=== PATIENT | female | born 1935 | race African-American/Black ===

== ENCOUNTER 2016-04-15 15:56 | Inpatient (IN) | payer OTHER ==
--- NOTE | 2016-04-15 16:06 | PDOC ---
History of Present Illness <Fortunato Tyler - Last Filed: 04/15/16 18:54> - General History Source: Patient Exam Limitations: No Limitations - History of Present Illness Initial Comments: 04/15/16 16:24 The patient is a 80 year old morbidly obese female with a significant past medical history of hypercholesterolemia, pulmonary embolism, colon cancer, CHF, hypertension, IDDM, who presents to the ED s/p fall today. Patient was getting onto the bed as her right leg gave out and she fell onto her knees. She notes that she was able to get up and was fine until later in the day as her symptoms began and got progressively worse. She states that her right knee is very painful. Patient denies any head trauma, back pain. Patient denies any fever, chills, nausea, vomiting, diarrhea. Patient is ambulatory with assistance of a walker. <Yanely Craig - Last Filed: 04/15/16 19:02> - General Stated Complaint: FALL Time Seen by Provider: 04/15/16 16:05 Past History - Past Medical History Anemia: No Asthma: No Cancer: No Cardiac Disorders: No CVA: No COPD: No CHF: No Dementia: No Diabetes: Yes Disorders: No HTN: Yes Hypercholesterolemia: Yes Liver Disease: No Seizures: No Thyroid Disease: No - Surgical History Abdominal Surgery: No Appendectomy: No Cardiac Surgery: No Cholecystectomy: No Lung Surgery: No Neurologic Surgery: No Orthopedic Surgery: No - Immunization History Immunization Up to Date: Yes - Psycho/Social/Smoking Cessation Hx Anxiety: No Suicidal Ideation: No Smoking History: Never smoked Have you smoked in the past 12 months: No If you are a former smoker, when did you quit?: 1974 Hx Alcohol Use: No Drug/Substance Use Hx: No Substance Use Type: None Hx Substance Use Treatment: No <Fortunato Tyler - Last Filed: 04/15/16 18:54> <Yanely Craig - Last Filed: 04/15/16 19:02> - Past Medical History Allergies/Adverse Reactions: Allergies Allergy/AdvReac Type Severity Reaction Status Date / Time No Known Drug Allergies Allergy Verified 04/15/16 18:27 lactose AdvReac Verified 04/15/16 18:27 Home Medications: Ambulatory Orders Unobtainable [Unobtainable] 04/15/16 Review of Systems - Review of Systems Able to Perform ROS?: Yes Comments:: 04/15/16 16:24 GENERAL/CONSTITUTIONAL: No fever or chills. No weakness. HEAD, EYES, EARS, NOSE AND THROAT: No change in vision. No ear pain or discharge. No sore throat. CARDIOVASCULAR: No chest pain or shortness of breath. RESPIRATORY: No cough, wheezing, or hemoptysis. GASTROINTESTINAL: No nausea, vomiting, diarrhea or constipation. GENITOURINARY: No dysuria, frequency, or change in urination. MUSCULOSKELETAL: +bilateral knee pain. No joint or muscle swelling or pain. No neck or back pain. SKIN: No rash NEUROLOGIC: No headache, vertigo, loss of consciousness, or change in strength/ sensation. ENDOCRINE: No increased thirst. No abnormal weight change. HEMATOLOGIC/LYMPHATIC: No anemia, easy bleeding, or history of blood clots. ALLERGIC/IMMUNOLOGIC: No hives or skin allergy. <Yanely Craig - Last Filed: 04/15/16 19:02> *Physical Exam - Vital Signs Last Vital Signs Temp Pulse Resp BP Pulse Ox 97.8 F 78 18 161/86 95 04/15/16 16:17 04/15/16 16:17 04/15/16 16:17 04/15/16 16:17 04/15/16 16:17 - Physical Exam Comments: 04/15/16 16:25 GENERAL: Awake, alert, and fully oriented, in no acute distress HEAD: No signs of trauma EYES: PERRLA, EOMI, sclera anicteric, conjunctiva clear ENT: Auricles normal inspection, hearing grossly normal, nares patent, oropharynx clear without exudates. Moist mucosa NECK: Normal ROM, supple, no lymphadenopathy, JVD, or masses LUNGS: Breath sounds equal, clear to auscultation bilaterally. No wheezes, and no crackles HEART: Regular rate and rhythm, normal S1 and S2, no murmurs, rubs or gallops ABDOMEN: +Obese. Soft, nontender, normoactive bowel sounds. No guarding, no rebound. No masses EXTREMITIES: +Tenderness to kneecap bilaterally the right worse than the left. Normal range of motion. No clubbing or cyanosis. No cords, erythema. NEUROLOGICAL: Cranial nerves II through XII grossly intact. Normal speech. SKIN: Warm, Dry, normal turgor, no rashes or lesions noted. <Yanely Craig - Last Filed: 04/15/16 19:02> Medical Decision Making - Medical Decision Making 04/15/16 16:25 80 year old morbidly obese female with a significant past medical history of hypercholesterolemia, pulmonary embolism, colon cancer, CHF, hypertension, IDDM , who presents to the ED s/p fall today. She denies any LOC. Awaiting results of imagine will reassess after the results are obtained. 04/15/16 18:38 Bilateral knee XRAY's show no acute pathology. Patient was evaluated for ambulating and she cannot ambulate and is experiencing severe pain. Patient needs NH placement for PT. Will order CBC panel and urine. Hospitalist was microblogged for admission. <Yanely Craig - Last Filed: 04/15/16 19:02> *DC/Admit/Observation/Transfer - Discharge Dispostion Admit: Yes - Attestations Physician Attestion: 04/15/16 16:06 I, Dr. Fortunato Tyler, attest that this document has been prepared under my direction and personally reviewed by me in its entirety. I further attest, that it accurately reflects all work, treatment, procedures and medical decision -making performed by me. <Fortunato Tyler - Last Filed: 04/15/16 18:54> - Attestations Scribe Attestion: 04/15/16 16:26 Documentation prepared by SEYMOUR [place], acting as medical videographer for Fortunato Tyler MD/DO. <Yanely Craig - Last Filed: 04/15/16 19:02> Diagnosis at time of Disposition: Acute bilateral knee pain - Discharge Dispostion Condition at time of disposition: Unchanged/Unknown - Referrals Referrals: STAFF,NOT ON [Primary Care Provider] -
[2016-04-15] MEDS ORDERED: OXYCODONE/APAP 5/325MG COMBO TABLET PO ONE (16:10)
[2016-04-15] MEDS ORDERED: ONDANSETRON *ODT* 4 MG TABLET SL ONE (16:11)
[2016-04-15] MEDS ORDERED: ONDANSETRON *ODT* 4 MG TABLET ONE (16:21)
[2016-04-15] MEDS ORDERED: OXYCODONE/APAP 5/325MG COMBO TABLET ONE ×2 (16:21→23:04)
--- NOTE | 2016-04-15 19:26 | PN ---
<Frank Gonsales - Last Filed: 04/15/16 19:26> Teaching Attending Note Name of Resident: Husam Kruger ATTENDING PHYSICIAN STATEMENT I saw and evaluated the patient. I reviewed the resident's note and discussed the case with the resident. I agree with the resident's findings and plan as documented. SUBJECTIVE: OBJECTIVE: ASSESSMENT AND PLAN: <Kenyatta Miner - Last Filed: 04/15/16 21:20> Teaching Attending Note ATTENDING PHYSICIAN STATEMENT I saw and evaluated the patient. I reviewed the resident's note and discussed the case with the resident. I agree with the resident's findings and plan as documented. SUBJECTIVE: The patient is a 81 year old morbidly obese female with a significant past medical history of hypercholesterolemia, pulmonary embolism, colon cancer, CHF, hypertension, IDDM, who presents with mechanical fall today. Patient reports she was walking today when her right leg gave out and caused her to fall. Patient reports hitting her head but denies LOC. Patient reports she is not unable to move her right leg s/p fall secondary to pain. Patient denies any fever, chills, nausea, vomiting, diarrhea. Patient is ambulatory with assistance of a walker. Home meds: 30 mg codeine q 6 hrs as needed knee pain; Tylenol 500 mg 2 every 12 hrs OBJECTIVE: Last Vital Signs Temp Pulse Resp BP Pulse Ox 97.8 F 78 18 161/86 95 04/15/16 16:17 04/15/16 16:17 04/15/16 16:17 04/15/16 16:17 04/15/16 16:17 GENERAL: Morbidly obese F resting in bed. Awake, alert, and fully oriented, in no acute distress HEENT: Atraumatic. PERRLA, EOMI. Moist mucosa. No JVD LUNGS: No distress, speaks full sentences, decreased breath sounds at bases. HEART: Regular rate and rhythm, normal S1 and S2, no murmurs, rubs or gallops, peripheral pulses normal and equal bilaterally. ABDOMEN: Obese, nontender, normoactive bowel sounds. No guarding, no rebound. No masses EXTREMITIES: Normal range of motion, no edema. No clubbing or cyanosis. Tenderness to palpation on mid right leg NEUROLOGICAL: Cranial nerves II through XII grossly intact. Normal speech, normal gait, no focal sensorimotor deficits SKIN: Warm, Dry, normal turgor, no rashes or lesions noted. CBCD WBC 7.6 K/mm3 (4.0-10.0) 04/15/16 19:40 RBC 4.60 M/mm3 (3.60-5.2) 04/15/16 19:40 Hgb 12.7 GM/dL (10.7-15.3) 04/15/16 19:40 Hct 39.3 % (32.4-45.2) 04/15/16 19:40 MCV 85.5 fl (80-96) 04/15/16 19:40 MCHC 32.3 g/dl (32.0-36.0) 04/15/16 19:40 RDW 15.5 % (11.6-15.6) 04/15/16 19:40 Plt Count 158 K/MM3 (134-434) 04/15/16 19:40 MPV 8.9 fl (7.5-11.1) 04/15/16 19:40 CMP Sodium 144 mmol/L (136-145) 04/15/16 19:06 Potassium 3.4 mmol/L (3.5-5.1) L 04/15/16 19:06 Chloride 108 mmol/L (98-107) H 04/15/16 19:06 Carbon Dioxide 26 mmol/L (21-32) 04/15/16 19:06 Anion Gap 10 (8-16) 04/15/16 19:06 BUN 18 mg/dL (7-18) 04/15/16 19:06 Creatinine 0.8 mg/dL (0.55-1.02) 04/15/16 19:06 Creat Clearance w eGFR > 60 (>60) 04/15/16 19:06 Calcium 8.8 mg/dL (8.5-10.1) 04/15/16 19:06 Total Bilirubin 0.4 mg/dL (0.2-1.0) D 04/15/16 19:06 AST 10 U/L (15-37) L D 04/15/16 19:06 ALT 14 U/L (12-78) 04/15/16 19:06 Alkaline Phosphatase 87 U/L (45-117) 04/15/16 19:06 Total Protein 6.5 g/dl (6.4-8.2) 04/15/16 19:06 Albumin 3.5 g/dl (3.4-5.0) 04/15/16 19:06 ASSESSMENT AND PLAN: The patient is a 81 year old morbidly obese female with a significant past medical history of hypercholesterolemia, pulmonary embolism, colon cancer, CHF, hypertension, IDDM, who presents with mechanical fall. 1.) Mechanical fall -Intractable knee pain -Knee X-ray neg. Bilaterally -PT consult -Pain control -Social work consult for possible jail placement -Right leg X-Ray for pain over tibia -STAT Head CT without contrast due to patient hitting head 2.) PE -If CT head neg, continue with eliquis 3.) HLD - continue statin 4.) HTN -Continue home meds 5.) DVT ppx -On eliquis -Place in Med Surg Documentation prepared by Kenyatta Miner, acting as medical device sales consultant for Frank Gonsales D.O.
[2016-04-15 19:53] LABS: EOSINOPHIL 1.2 % (0-4.5); MCH 27.6 pg (25.7-33.7); MCHC 32.3 g/dl (32.0-36.0); MEAN CELL VOLUME 85.5 fl (80-96); MEAN PLT VOLUME 8.9 fl (7.5-11.1); NEUTROPHILS 60.8 % (42.8-82.8); PLATELET COUNT 158 K/MM3 (134-434); RDW 15.5 % (11.6-15.6); WHITE BLOOD COUNT 7.6 K/mm3 (4.0-10.0)
[2016-04-15 20:08] LABS: INR 1.32 (0.82-1.09); PROTHROMBIN TIME (PATIENT) 14.6 SEC (9.98-11.88)
--- NOTE | 2016-04-15 20:16 | HP ---
CHIEF COMPLAINT: fall HISTORY OF PRESENT ILLNESS: The patient is a 80 year old morbidly obese female with a significant past medical history of hypercholesterolemia, pulmonary embolism, colon cancer, CHF, hypertension, IDDM, who presents to ED with a complain of mechanical fall today at & am in morning. Patient states that she was going to her bed when her legs gave up because of pain in knee joint and had a fall. Patient states that she had backward fall and do hit her head, denies LOC, nausea, vomiting, blood frm nose, ear, tongue bite, urine and faecal incontinence. She states that she has pain in her knee joints from couple of months and was diagnosed with osteoarthritis. Patient denies any head trauma, back pain.Patient denies any fever, chills, nausea, vomiting, diarrhea. Denies chest pain, palpitations, sob. Patient is ambulatory with assistance of a walker. ER course was notable for: (1) cbc, cmp (2) Xray knee Recent Travel: No PAST MEDICAL HISTORY: hypercholesterolemia, pulmonary embolism, colon cancer, CHF, hypertension, IDDM, PAST SURGICAL HISTORY: coloncancer surgery Social History: Smoking: no Alcohol:no Drugs: no Family History: Allergies No Known Drug Allergies Allergy (Verified 04/15/16 18:27) lactose Adverse Reaction (Verified 04/15/16 18:27) HOME MEDICATIONS: Home Medications Medication Instructions Recorded Unobtainable [Unobtainable] 04/15/16 REVIEW OF SYSTEMS CONSTITUTIONAL: Absent: fever, chills, diaphoresis, generalized weakness, malaise, loss of appetite, weight change HEENT: Absent: rhinorrhea, nasal congestion, throat pain, throat swelling, difficulty swallowing, mouth swelling, ear pain, eye pain, visual changes CARDIOVASCULAR: Absent: chest pain, syncope, palpitations, irregular heart rate, lightheadedness , peripheral edema RESPIRATORY: Absent: cough, shortness of breath, dyspnea with exertion, orthopnea, wheezing, stridor, hemoptysis GASTROINTESTINAL: Absent: abdominal pain, abdominal distension, nausea, vomiting, diarrhea, constipation, melena, hematochezia GENITOURINARY: Absent: dysuria, frequency, urgency, hesitancy, hematuria, flank pain, genital pain MUSCULOSKELETAL: pain in right knee and right leg. SKIN: Absent: rash, itching, pallor HEMATOLOGIC/IMMUNOLOGIC: Absent: easy bleeding, easy bruising, lymphadenopathy, frequent infections ENDOCRINE: Absent: unexplained weight gain, unexplained weight loss, heat intolerance, cold intolerance NEUROLOGIC: Absent: headache, focal weakness or paresthesias, dizziness, unsteady gait, seizure, mental status changes, bladder or bowel incontinence PSYCHIATRIC: Absent: anxiety, depression, suicidal or homicidal ideation, hallucinations. PHYSICAL EXAMINATION Vital Signs - 24 hr 04/15/16 16:17 Temperature 97.8 F Pulse Rate 78 Respiratory 18 Rate Blood Pressure 161/86 O2 Sat by Pulse 95 Oximetry (%) GENERAL: Awake, alert, and fully oriented, in no acute distress. HEAD: Normal with no signs of trauma. EYES: Pupils equal, round and reactive to light, extraocular movements intact, sclera anicteric, conjunctiva clear. No lid lag. EARS, NOSE, THROAT: Ears normal, nares patent, oropharynx clear without exudates. Moist mucous membranes. NECK: Normal range of motion, supple without lymphadenopathy, JVD, or masses. LUNGS: Breath sounds equal, clear to auscultation bilaterally. No wheezes, and no crackles. No accessory muscle use. HEART: Regular rate and rhythm, normal S1 and S2 without murmur, rub or gallop. ABDOMEN: Soft, nontender, not distended, normoactive bowel sounds, no guarding, no rebound, no masses. No hepatomegaly or splenomegaly. MUSCULOSKELETAL: Normal range of motion at all joints. No bony deformities or tenderness. No CVA tenderness. UPPER EXTREMITIES: 2+ pulses, warm, well-perfused. No cyanosis. No clubbing. Cap refill <2 seconds. No peripheral edema. LOWER EXTREMITIES: 2+ pulses, warm, well-perfused. No peripheral edema. tenderness in middle of right leg and in right knee, unable to move her leg because of pain. dorsiflexion and planer flaxion 5/5 on right side. Power in left lower limb 5/5 NEUROLOGICAL: Cranial nerves II-XII intact. Normal speech. Normal gait. PSYCHIATRIC: Cooperative. Good eye contact. Appropriate mood and affect. SKIN: Warm, dry, normal turgor, no rashes or lesions noted. Laboratory Results - last 24 hr 04/15/16 04/15/16 19:06 19:40 WBC 7.6 RBC 4.60 Hgb 12.7 Hct 39.3 MCV 85.5 MCHC 32.3 RDW 15.5 Plt Count 158 MPV 8.9 Neutrophils % 60.8 D Lymphocytes % 29.4 D Monocytes % 7.6 Eosinophils % 1.2 Basophils % 1.0 INR 1.32 H ASSESSMENT/PLAN: The patient is a 80 year old morbidly obese female with a significant past medical history of hypercholesterolemia, pulmonary embolism, colon cancer, CHF, hypertension, IDDM, who presents to ED with a complain of mechanical fall today at & am in morning. Fall due to pain in right knee and leg could be secondary to osteoarthritis Knee x ray reviewed, no acute pathology follow x ray tibia and fibula Physical therapy request social security specialist request: unable to ambulate due to pain, NH placement pain control HLD continue with home med atorvastatin 10mg hs HTN continue with home med coreg 12.5 bid Lisinopril 2.5mg po daily DM diabetic diet started on sliding scale BGM q4h, achs hold oral hypoglycemic drugs H/o Pulmonary embolism continue home med eliquis Fluid : orally allowed electrlyte: hypokalemia, givekcl 40meq po repeat elect in morning nutrition: diabetic diet dvt pro : on eliquis Gi pro ; started on protonix Please confirm the list of her home meds. called [facility] to confirm her meds. Pharmacy was closed. Dispo ; admit in med surg, Visit type - Emergency Visit Emergency Visit: Yes ED Registration Date: 04/15/16 Care time: The patient presented to the Emergency Department on the above date and was hospitalized for further evaluation of their emergent condition. - New Patient This patient is new to me today: Yes Date on this admission: 04/16/16 - Critical Care Critical Care patient: No
[2016-04-15 20:19] LABS: ALBUMIN 3.5 g/dl (3.4-5.0); ALK PHOS 87 U/L (45-117); ANION GAP 10 (8-16); BILIRUBIN,TOTAL 0.4 mg/dL (0.2-1.0); CALCIUM 8.8 mg/dL (8.5-10.1); CO2 26 mmol/L (21-32); CREATININE 0.8 mg/dL (0.55-1.02); GLUCOSE,RANDOM 100 mg/dL (74-106); SGOT/AST 10 U/L (15-37); SGPT/ALT 14 U/L (12-78); TOT PROT 6.5 g/dl (6.4-8.2)
[2016-04-15] MEDS ORDERED: POTASSIUM CHLORIDE TABS 20 MEQ TABLET.ER (FP) PO ONE ×2 (20:42→23:04)
[2016-04-15] MEDS ORDERED: OXYCODONE/APAP 5/325MG COMBO TABLET PO PRN (20:46)
[2016-04-15] MEDS: oxyCODONE HCL 5 MG TABLET PO PRN (22:59)
[2016-04-15] MEDS: ATORVASTATIN CA 10 MG TABLET (FP) PO SCH (22:59)
[2016-04-15] MEDS: CARVEDILOL 12.5 MG TABLET (FP) PO SCH (22:59)
[2016-04-15] MEDS ORDERED: CARVEDILOL 12.5 MG TABLET (FP) ONE (23:04)
[2016-04-15] MEDS ORDERED: ATORVASTATIN CA 40 MG TABLET (FP) ONE (23:05)
[2016-04-16 03:03] VITALS: BMI 43.9
[2016-04-16 08:13] LABS: BASOPHIL 0.7 % (0-2.0); EOSINOPHIL 1.6 % (0-4.5); MCHC 31.7 g/dl (32.0-36.0); MEAN CELL VOLUME 88.3 fl (80-96); MEAN PLT VOLUME 9.3 fl (7.5-11.1); PLATELET COUNT 146 K/MM3 (134-434); RDW 15.8 % (11.6-15.6); WHITE BLOOD COUNT 6.6 K/mm3 (4.0-10.0)
[2016-04-16] MEDS ORDERED: PT OWN MED DRAWER 7, Y5N ONE (08:35)
[2016-04-16] MEDS: ACETAMINOPHEN 325 MG TABLET (FP) PO PRN ×2 (08:48→22:35)
[2016-04-16] MEDS: oxyCODONE HCL 5 MG TABLET PO PRN ×2 (08:49→22:34)
[2016-04-16 08:59] LABS: MAGNESIUM 1.8 mg/dL (1.8-2.4)
[2016-04-16 09:02] LABS: PHOSPHOROUS 3.6 mg/dL (2.5-4.9)
[2016-04-16] MEDS: APIXABAN 5 MG TABLET PO SCH ×2 (09:03→22:33)
[2016-04-16] MEDS: CARVEDILOL 12.5 MG TABLET (FP) PO SCH ×2 (09:03→22:33)
[2016-04-16] MEDS: PANTOPRAZOLE 40 MG TABLET (FP) PO SCH (09:03)
[2016-04-16 09:13] LABS: URINE APPEARANCE CLOUDY; URINE BILIRUBIN NEGATIVE (NEGATIVE); URINE BLOOD NEGATIVE (NEGATIVE); URINE COLOR YELLOW; URINE GLUCOSE (UA) NEGATIVE (NEGATIVE); URINE KETONE NEGATIVE (NEGATIVE); URINE NITRITE NEGATIVE (NEGATIVE); URINE UROBILINOGEN NEGATIVE E.U./dl (0.2-1.0)
[2016-04-16 09:14] LABS: URINE LEUK ESTERASE 3+ (NEGATIVE); URINE PROTEIN 1+ (NEGATIVE)
[2016-04-16] MEDS: INSULIN SLIDING SCALE (NOVOLOG) 1 VIAL SQ SCH ×2 (17:09→22:39)
--- NOTE | 2016-04-16 17:53 | PN ---
Physical Exam: SUBJECTIVE: Patient seen and examined Patient is c/o having b/l knee pain. Unable to stand on her feet due to pain, also stated that he heard this popping noise of her knee OBJECTIVE: Vital Signs Temperature 98.4 F 04/16/16 14:55 Pulse Rate 69 04/16/16 14:55 Respiratory Rate 20 04/16/16 14:55 Blood Pressure 136/62 04/16/16 14:55 O2 Sat by Pulse Oximetry (%) 93 L 04/16/16 09:00 GENERAL: The patient is awake, alert, and fully oriented, in no acute distress. HEAD: Normal with no signs of trauma. EYES: PERRL, extraocular movements intact, sclera anicteric, conjunctiva clear. No ptosis. ENT: Ears normal, nares patent, oropharynx clear without exudates, moist mucous membranes. NECK: Trachea midline, full range of motion, supple. LUNGS: Breath sounds equal, clear to auscultation bilaterally, no wheezes, no crackles, no accessory muscle use. HEART: Regular rate and rhythm, S1, S2 without murmur, rub or gallop. ABDOMEN: Soft, nontender, nondistended, normoactive bowel sounds, no guarding, no rebound, no hepatosplenomegaly, no masses. EXTREMITIES: 2+ pulses, warm, well-perfused, no edema. Unable to bend her knees right >left NEUROLOGICAL: Cranial nerves II through XII grossly intact. Normal speech, gait not observed , unable to ambulate PSYCH: Normal mood, normal affect. SKIN: Warm, dry, normal turgor, no rashes or lesions noted Laboratory Results - last 24 hr 04/15/16 04/15/16 04/15/16 19:06 19:06 19:40 WBC 7.6 RBC 4.60 Hgb 12.7 Hct 39.3 MCV 85.5 MCHC 32.3 RDW 15.5 Plt Count 158 MPV 8.9 Neutrophils % 60.8 D Lymphocytes % 29.4 D Monocytes % 7.6 Eosinophils % 1.2 Basophils % 1.0 INR 1.32 H PTT (Actin FS) Sodium 144 Potassium 3.4 L Chloride 108 H Carbon Dioxide 26 Anion Gap 10 BUN 18 Creatinine 0.8 Creat Clearance w eGFR > 60 POC Glucometer Random Glucose 100 Calcium 8.8 Phosphorus Magnesium Total Bilirubin 0.4 D AST 10 L D ALT 14 Alkaline Phosphatase 87 Total Protein 6.5 Albumin 3.5 Urine Color Urine Appearance Urine pH Ur Specific [place] Urine Protein Urine Glucose (UA) Urine Ketones Urine Blood Urine Nitrite Urine Bilirubin Urine Urobilinogen Ur Leukocyte Esterase 04/16/16 04/16/16 04/16/16 06:40 07:00 07:00 WBC 6.6 RBC 4.44 Hgb 12.4 Hct 39.2 MCV 88.3 MCHC 31.7 L RDW 15.8 H Plt Count 146 MPV 9.3 Neutrophils % 58.0 Lymphocytes % 31.4 Monocytes % 8.3 Eosinophils % 1.6 Basophils % 0.7 INR PTT (Actin FS) Sodium Potassium Chloride Carbon Dioxide Anion Gap BUN Creatinine Creat Clearance w eGFR POC Glucometer 100 Random Glucose Calcium Phosphorus Magnesium Total Bilirubin AST ALT Alkaline Phosphatase Total Protein Albumin Urine Color Yellow Urine Appearance Cloudy Urine pH 5.0 Ur Specific [place] 1.027 Urine Protein 1+ H Urine Glucose (UA) Negative Urine Ketones Negative Urine Blood Negative Urine Nitrite Negative Urine Bilirubin Negative Urine Urobilinogen Negative Ur Leukocyte Esterase 3+ H 04/16/16 04/16/16 04/16/16 07:00 07:00 12:23 WBC RBC Hgb Hct MCV MCHC RDW Plt Count MPV Neutrophils % Lymphocytes % Monocytes % Eosinophils % Basophils % INR PTT (Actin FS) 33.6 D Sodium Potassium Chloride Carbon Dioxide Anion Gap BUN Creatinine Creat Clearance w eGFR POC Glucometer 114 Random Glucose Calcium Phosphorus 3.6 Magnesium 1.8 Total Bilirubin AST ALT Alkaline Phosphatase Total Protein Albumin Urine Color Urine Appearance Urine pH Ur Specific [place] Urine Protein Urine Glucose (UA) Urine Ketones Urine Blood Urine Nitrite Urine Bilirubin Urine Urobilinogen Ur Leukocyte Esterase 04/16/16 17:08 WBC RBC Hgb Hct MCV MCHC RDW Plt Count MPV Neutrophils % Lymphocytes % Monocytes % Eosinophils % Basophils % INR PTT (Actin FS) Sodium Potassium Chloride Carbon Dioxide Anion Gap BUN Creatinine Creat Clearance w eGFR POC Glucometer 128 Random Glucose Calcium Phosphorus Magnesium Total Bilirubin AST ALT Alkaline Phosphatase Total Protein Albumin Urine Color Urine Appearance Urine pH Ur Specific [place] Urine Protein Urine Glucose (UA) Urine Ketones Urine Blood Urine Nitrite Urine Bilirubin Urine Urobilinogen Ur Leukocyte Esterase Active Medications Generic Name Dose Route Start Last Admin Trade Name Freq PRN Reason Stop Dose Admin Acetaminophen 325 mg 04/15/16 22:22 02/20/17 08:48 Tylenol - PO 325 mg Q6H PRN Administration PAIN Apixaban 5 mg 04/16/16 10:00 04/16/16 09:03 Eliquis - PO 5 mg BID CHRISTINA Administration Atorvastatin Calcium 10 mg 04/15/16 22:00 04/15/16 22:59 Lipitor - PO 10 mg HS CHRISTINA Administration Carvedilol 12.5 mg 04/15/16 22:00 04/16/16 09:03 Coreg - PO 12.5 mg BID CHRISTINA Administration Insulin Aspart 1 vial 04/16/16 16:30 04/16/16 17:09 Novolog Vial Sliding Scale - SQ Not Given ACHS CHRISTINA Protocol Oxycodone HCl 5 mg 04/15/16 22:22 04/16/16 08:49 Roxicodone - PO 5 mg Q6H PRN Administration PAIN Pantoprazole Sodium 40 mg 04/16/16 10:00 04/16/16 09:03 Protonix - PO 40 mg DAILY CHRISTINA Administration CT of head Negative Knee X-ray neg ASSESSMENT/PLAN: The patient is a 81 year old morbidly obese female with a significant past medical history of hypercholesterolemia, pulmonary embolism, colon cancer, CHF, hypertension, IDDM, who presents with mechanical fall. # Mechanical fall; Intractable BL knee pain R>L ; Ortho consult to evaluate further. Social work consult for possible halfway placement # Pulmonary Embolism on Eliquis continue # HLD continue statin # HTN Continue home meds DVT ppx On eliquis Rehab placement as per family request Visit type - Emergency Visit Emergency Visit: Yes ED Registration Date: 04/15/16 Care time: The patient presented to the Emergency Department on the above date and was hospitalized for further evaluation of their emergent condition. - New Patient This patient is new to me today: Yes Date on this admission: 04/16/16 - Critical Care Critical Care patient: No
[2016-04-16] MEDS: ATORVASTATIN CA 10 MG TABLET (FP) PO SCH (22:33)
[2016-04-17] MEDS: sitaGLIPtin PHOSPHATE 50 MG TABLET PO SCH (06:31)
[2016-04-17] MEDS: INSULIN SLIDING SCALE (NOVOLOG) 1 VIAL SQ SCH ×3 (06:33→21:59)
[2016-04-17] MEDS: oxyCODONE HCL 5 MG TABLET PO PRN ×2 (07:07→16:09)
[2016-04-17] MEDS: ACETAMINOPHEN 325 MG TABLET (FP) PO PRN ×2 (07:08→16:09)
[2016-04-17 09:46] LABS: MCHC 32.2 g/dl (32.0-36.0); MEAN CELL VOLUME 86.9 fl (80-96); MEAN PLT VOLUME 8.9 fl (7.5-11.1); PLATELET COUNT 149 K/MM3 (134-434); RDW 15.6 % (11.6-15.6); WHITE BLOOD COUNT 6.3 K/mm3 (4.0-10.0)
[2016-04-17] MEDS ORDERED: PT OWN MED DRAWER 7, Y5N ONE ×2 (09:49→21:12)
[2016-04-17] MEDS: PANTOPRAZOLE 40 MG TABLET (FP) PO SCH (09:55)
[2016-04-17] MEDS: APIXABAN 5 MG TABLET PO SCH ×2 (09:55→22:00)
[2016-04-17] MEDS: CARVEDILOL 12.5 MG TABLET (FP) PO SCH ×2 (09:55→21:59)
[2016-04-17 10:09] LABS: CALCIUM 8.8 mg/dL (8.5-10.1); CREATININE 0.8 mg/dL (0.55-1.02)
--- NOTE | 2016-04-17 11:40 | CON.ORTH ---
Consult Reason for Consultation:: bilateral knee pain r>l - Past Medical History Cardio/Vascular: Yes: HTN, Hyperlipdemia Pulmonary: Yes: Pulmonary Embolus, Other (former smoker, morbid obesity, probable ALEJANDRA) ...: No Endocrine: Yes: Diabetes Mellitus - Past Surgical History Past Surgical History: Yes: - Alcohol/Substance Use Hx Alcohol Use: No - Smoking History Smoking history: Never smoked Have you smoked in the past 12 months: No If you are a former smoker, when did you quit?: 1974 - Social History Usual Living Arrangement: Assisted Living History of Recent Travel: No Home Medications - Allergies Allergies/Adverse Reactions: Allergies Allergy/AdvReac Type Severity Reaction Status Date / Time No Known Drug Allergies Allergy Verified 04/15/16 18:27 lactose AdvReac Verified 04/15/16 18:27 - Home Medications Home Medications: Ambulatory Orders Unobtainable [Unobtainable] 04/15/16 Family Disease History - Family Disease History Family Disease History: CA: Sister (unknown type) Physical Exam for Ortho Vital Signs: Vital Signs Temperature 97.9 F 04/17/16 10:00 Pulse Rate 71 04/17/16 10:00 Respiratory Rate 20 04/17/16 10:00 Blood Pressure 142/71 04/17/16 10:00 O2 Sat by Pulse Oximetry (%) 99 04/16/16 21:00 Labs: CBC, BMP 04/17/16 09:30 04/17/16 09:30 INR, PTT INR 1.32 (0.82-1.09) H 04/15/16 19:06 - Lower Extremity Knee: Yes: Left, Right, Limited ROM, Pain, Swelling, Tenderness, Other (nvi) Imaging - Results X-ray: Report Reviewed, Image Reviewed Assessment/Plan 80 year old morbidly obese female with a significant past medical history of hypercholesterolemia, pulmonary embolism, colon cancer, CHF, hypertension, IDDM , who presents to the ED s/p fall today. Patient was getting onto the bed as her right leg gave out and she fell onto her knees. She notes that she was able to get up and was fine until later in the day as her symptoms began and got progressively worse. She states that her right knee is very painful and she is unable to ambulate. a/p bilateral knee djd- r/o occult pathology will order CT scan of right knee will direct once CT has been performed d/w Dr. Epperson
[2016-04-17] MEDS ORDERED: DOCUSATE SODIUM 100 MG CAPSULE (FP) PO PRN (13:07)
[2016-04-17] MEDS: POLYETHYLENE GLYCOL 3350 119 GM BTL PO SCH (16:11)
--- NOTE | 2016-04-17 16:41 | PN ---
Physical Exam: SUBJECTIVE: Patient seen and examined. She is complaining of right knee pain, difficulty ambulating and constipation. She denies weakness, dizziness, chest pain. OBJECTIVE: Vital Signs Period Temp Pulse Resp BP Sys/Dean Pulse Ox Last 24 Hr 97.7 F-98.9 F 65-75 20-20 142-188/63-76 93-99 GENERAL: The patient is awake, alert, and fully oriented, in no acute distress. HEAD: Normal with no signs of trauma. EYES: extraocular movements intact, conjunctiva clear. ENT: oropharynx clear without exudates, moist mucous membranes. NECK: full range of motion, supple. LUNGS: Breath sounds equal, clear to auscultation bilaterally, no wheezes, no crackles, no accessory muscle use. HEART: Regular rate and rhythm, S1, S2 without murmur, rub or gallop. ABDOMEN: Obese, soft, nontender, nondistended, normoactive bowel sounds, no guarding, no rebound, no masses. EXTREMITIES: warm, no edema, limited ROM in right knee. NEUROLOGICAL: Normal speech, no facial asymmetry, no tongue deviation, motor; 5/ 5 in all 4 extremities, sensation intact, gait not observed, DTRs nl in LEs. PSYCH: Normal mood, normal affect. SKIN: Warm, dry, normal turgor, no rashes or lesions noted Laboratory Results - last 24 hr 04/16/16 04/16/16 04/17/16 17:08 22:38 06:29 WBC RBC Hgb Hct MCV MCHC RDW Plt Count MPV Sodium Potassium Chloride Carbon Dioxide Anion Gap BUN Creatinine POC Glucometer 128 89 85 Random Glucose Calcium 04/17/16 04/17/16 04/17/16 09:30 09:30 12:27 WBC 6.3 RBC 4.50 Hgb 12.6 Hct 39.1 MCV 86.9 MCHC 32.2 RDW 15.6 Plt Count 149 MPV 8.9 Sodium 145 Potassium 3.9 Chloride 109 H Carbon Dioxide 30 Anion Gap 6 L BUN 24 H D Creatinine 0.8 POC Glucometer 90 Random Glucose 92 Calcium 8.8 Active Medications Generic Name Dose Route Start Last Admin Trade Name Freq PRN Reason Stop Dose Admin Acetaminophen 325 mg 04/15/16 22:22 04/17/16 16:09 Tylenol - PO 325 mg Q6H PRN Administration PAIN Apixaban 5 mg 04/16/16 10:00 04/17/16 09:55 Eliquis - PO 5 mg BID CHRISTINA Administration Atorvastatin Calcium 10 mg 04/15/16 22:00 04/16/16 22:33 Lipitor - PO 10 mg HS CHRISTINA Administration Carvedilol 12.5 mg 04/15/16 22:00 04/17/16 09:55 Coreg - PO 12.5 mg BID CHRISTINA Administration Docusate Sodium 100 mg 04/17/16 13:07 Colace - PO Q8H PRN CONSTIPATION Insulin Aspart 1 vial 04/16/16 16:30 04/17/16 12:30 Novolog Vial Sliding Scale - SQ Not Given ACHS CHRISTINA Protocol Oxycodone HCl 5 mg 04/15/16 22:22 04/17/16 16:09 Roxicodone - PO 5 mg Q6H PRN Administration PAIN Pantoprazole Sodium 40 mg 04/16/16 10:00 04/17/16 09:55 Protonix - PO 40 mg DAILY CHRISTINA Administration Polyethylene Glycol 17 gm 04/17/16 13:15 04/17/16 16:11 Miralax (For Daily Use) - PO 17 gm DAILY CHRISTINA Administration Sitagliptin Phosphate 50 mg 04/17/16 07:00 04/17/16 06:31 Januvia - PO 50 mg DAILY@0700 CHRISTINA Administration ASSESSMENT/PLAN: The patient is a 80 year old morbidly obese female with a significant past medical history of hypercholesterolemia, pulmonary embolism, colon cancer, CHF, hypertension, IDDM, who presents to ED with a complain of mechanical fall today at & am in morning. Fall due to pain in right knee and leg -could be secondary to osteoarthritis, will consult ortho and f/u CT -Knee x ray reviewed, no acute pathology -x ray tibia and fibula -Physical therapy -pain control Constipation; -Mitralax PO qd -Colace PO TID HLD -continue with home med atorvastatin 10mg hs HTN -continue with home med Coreg 12.5 bid -Lisinopril 2.5mg po daily DM -diabetic diet -Januvia and ISS -BGM q4h, achs -hold oral hypoglycemic drugs hypokalemia -given Kcl 40meq PO H/o Pulmonary embolism -continue home med eliquis F/E/N: No/No/diabetic diet dvt PPX : on eliquis GI PPX ; started on protonix Disposition: admit in med surg, Problem List - Problems (1) Acute bilateral knee pain Code(s): M25.561 - PAIN IN RIGHT KNEE M25.562 - PAIN IN LEFT KNEE (2) Frequent falls Code(s): R29.6 - REPEATED FALLS (3) Morbid obesity Code(s): E66.01 - MORBID (SEVERE) OBESITY DUE TO EXCESS CALORIES Qualifiers: Obesity type: unspecified obesity type Qualified Code(s): E66.01 - Morbid (severe) obesity due to excess calories (4) Diabetes Code(s): E11.9 - TYPE 2 DIABETES MELLITUS WITHOUT COMPLICATIONS (5) Hypertension Code(s): I10 - ESSENTIAL (PRIMARY) HYPERTENSION Visit type - Emergency Visit Emergency Visit: Yes ED Registration Date: 04/15/16 Care time: The patient presented to the Emergency Department on the above date and was hospitalized for further evaluation of their emergent condition. - New Patient This patient is new to me today: Yes Date on this admission: 04/18/16 - Critical Care Critical Care patient: No - Discharge Referral Referred to [facility] Med P.C.: No
--- NOTE | 2016-04-17 20:39 | PN ---
Teaching Attending Note Name of Resident: Skye Currie ATTENDING PHYSICIAN STATEMENT I saw and evaluated the patient. I reviewed the resident's note and discussed the case with the resident. I agree with the resident's findings and plan as documented. SUBJECTIVE: Patient continues to have pain right > left OBJECTIVE: Vital Signs Temperature 98.2 F 04/17/16 18:10 Pulse Rate 73 04/17/16 18:10 Respiratory Rate 20 04/17/16 18:10 Blood Pressure 165/85 04/17/16 18:10 O2 Sat by Pulse Oximetry (%) 93 L 04/17/16 09:00 GENERAL: The patient is awake, alert, and fully oriented, in no acute distress. HEAD: Normal with no signs of trauma. EYES: PERRL, extraocular movements intact, sclera anicteric, conjunctiva clear. No ptosis. ENT: Ears normal, nares patent, oropharynx clear without exudates, moist mucous membranes. NECK: Trachea midline, full range of motion, supple. LUNGS: Breath sounds equal, clear to auscultation bilaterally, no wheezes, no crackles, no accessory muscle use. HEART: Regular rate and rhythm, S1, S2 positive, REGAN 2/6 ,no rub or gallop. ABDOMEN: Soft, nontender, nondistended, normoactive bowel sounds, no guarding, no rebound, no hepatosplenomegaly, no masses appreciated. EXTREMITIES: 2+ pulses, warm, well-perfused, no edema. Unable to bend her knees right >left NEUROLOGICAL: Cranial nerves II through XII grossly intact. Normal speech, gait not observed , unable to ambulate PSYCH: Normal mood, normal affect. SKIN: Warm, dry, normal turgor, no rashes or lesions noted CBCD WBC 6.3 K/mm3 (4.0-10.0) 04/17/16 09:30 RBC 4.50 M/mm3 (3.60-5.2) 04/17/16 09:30 Hgb 12.6 GM/dL (10.7-15.3) 04/17/16 09:30 Hct 39.1 % (32.4-45.2) 04/17/16 09:30 MCV 86.9 fl (80-96) 04/17/16 09:30 MCHC 32.2 g/dl (32.0-36.0) 04/17/16 09:30 RDW 15.6 % (11.6-15.6) 04/17/16 09:30 Plt Count 149 K/MM3 (134-434) 04/17/16 09:30 MPV 8.9 fl (7.5-11.1) 04/17/16 09:30 CMP Sodium 145 mmol/L (136-145) 04/17/16 09:30 Potassium 3.9 mmol/L (3.5-5.1) 04/17/16 09:30 Chloride 109 mmol/L (98-107) H 04/17/16 09:30 Carbon Dioxide 30 mmol/L (21-32) 04/17/16 09:30 Anion Gap 6 (8-16) L 04/17/16 09:30 BUN 24 mg/dL (7-18) H D 04/17/16 09:30 Creatinine 0.8 mg/dL (0.55-1.02) 04/17/16 09:30 Creat Clearance w eGFR > 60 (>60) 04/15/16 19:06 Random Glucose 92 mg/dL (74-106) 04/17/16 09:30 Calcium 8.8 mg/dL (8.5-10.1) 04/17/16 09:30 Total Bilirubin 0.4 mg/dL (0.2-1.0) D 04/15/16 19:06 AST 10 U/L (15-37) L D 04/15/16 19:06 ALT 14 U/L (12-78) 04/15/16 19:06 Alkaline Phosphatase 87 U/L (45-117) 04/15/16 19:06 Total Protein 6.5 g/dl (6.4-8.2) 04/15/16 19:06 Albumin 3.5 g/dl (3.4-5.0) 04/15/16 19:06 Current Medications Generic Name Dose Route Start Last Admin Trade Name Freq PRN Reason Stop Dose Admin Acetaminophen 325 mg 04/15/16 22:22 04/17/16 16:09 Tylenol - PO 325 mg Q6H PRN Administration PAIN Apixaban 5 mg 04/16/16 10:00 04/17/16 09:55 Eliquis - PO 5 mg BID CHRISTINA Administration Atorvastatin Calcium 10 mg 04/15/16 22:00 04/16/16 22:33 Lipitor - PO 10 mg HS CHRISTINA Administration Carvedilol 12.5 mg 04/15/16 22:00 04/17/16 09:55 Coreg - PO 12.5 mg BID CHRISTINA Administration Docusate Sodium 100 mg 04/17/16 13:07 Colace - PO Q8H PRN CONSTIPATION Insulin Aspart 1 vial 04/16/16 16:30 04/17/16 12:30 Novolog Vial Sliding Scale - SQ Not Given ACHS [facility] Protocol Oxycodone HCl 5 mg 04/15/16 22:22 04/17/16 16:09 Roxicodone - PO 5 mg Q6H PRN Administration PAIN Pantoprazole Sodium 40 mg 04/16/16 10:00 04/17/16 09:55 Protonix - PO 40 mg DAILY CHRISTINA Administration Polyethylene Glycol 17 gm 04/17/16 13:15 04/17/16 16:11 Miralax (For Daily Use) - PO 17 gm DAILY CHRISTINA Administration Sitagliptin Phosphate 50 mg 04/17/16 07:00 04/17/16 06:31 Januvia - PO 50 mg DAILY@0700 CHRISTINA Administration Home Medications Medication Instructions Recorded Unobtainable [Unobtainable] 04/15/16 CT of head Negative Knee X-ray neg ASSESSMENT AND PLAN: The patient is a 81 year old morbidly obese female with a significant past medical history of hypercholesterolemia, pulmonary embolism, colon cancer, CHF, hypertension, IDDM, who presents with mechanical fall. # Mechanical fall; Intractable BL knee pain R>L , Unable to ambulate , Ortho consult appreciated , CT of right knee ordered, result is pending . Social work consult for possible assisted placement # Pulmonary Embolism on Eliquis continue # HLD continue statin # HTN Continue home meds DVT ppx On eliquis Rehab placement as per family request
[2016-04-17] MEDS: ATORVASTATIN CA 10 MG TABLET (FP) PO SCH (22:00)
[2016-04-18] MEDS: sitaGLIPtin PHOSPHATE 50 MG TABLET PO SCH (06:09)
[2016-04-18] MEDS: INSULIN SLIDING SCALE (NOVOLOG) 1 VIAL SQ SCH ×3 (06:11→16:38)
--- NOTE | 2016-04-18 09:19 | PN ---
Progress Note (short form) - Note Progress Note: Ortho Pt seen and examined improving but still c/o pain in bilateral knees R>L, was able to ambulate to the commode decr pain, decr swelling, Incr ROM, nvi CT scan neg for fx- + djd, loose bodies a/p PT eval WBAT dvt ppx pain control d/c planning d/w Dr. Epperson
[2016-04-18] MEDS: APIXABAN 5 MG TABLET PO SCH (09:40)
[2016-04-18] MEDS: CARVEDILOL 12.5 MG TABLET (FP) PO SCH (09:40)
[2016-04-18] MEDS: POLYETHYLENE GLYCOL 3350 119 GM BTL PO SCH (09:40)
[2016-04-18] MEDS: PANTOPRAZOLE 40 MG TABLET (FP) PO SCH (09:40)
[2016-04-18] MEDS ORDERED: oxyCODONE HCL 5 MG TABLET PO PRN (11:41)
[2016-04-18] MEDS ORDERED: SENNOSIDES 8.6MG TABLET (FP) PO PRN (11:42)
[2016-04-18] MEDS ORDERED: INSULIN (NOVOLOG) ASPART 100 UNITS/ML 10ML VIAL ONE ×2 (11:54→19:07)
[2016-04-18] MEDS: ACETAMINOPHEN 325 MG TABLET (FP) PO PRN (11:58)
[2016-04-18 15:00] VITALS: BP 140/75; PULSE 68; TEMP 97.6
--- NOTE | 2016-04-18 15:17 | PN ---
Teaching Attending Note Name of Resident: Skye Currie ATTENDING PHYSICIAN STATEMENT I saw and evaluated the patient. I reviewed the resident's note and discussed the case with the resident. I agree with the resident's findings and plan as documented. SUBJECTIVE:complaints of b/l knee pain 8/10 and inability to get out of bed due to pain OBJECTIVE: Vital Signs - 24 hr 04/17/16 04/17/16 04/17/16 15:39 18:10 21:00 Temperature 98.3 F 98.2 F Pulse Rate 69 73 Respiratory 20 20 Rate Blood Pressure 156/73 165/85 O2 Sat by Pulse 90 L Oximetry (%) 04/18/16 04/18/16 04/18/16 00:00 06:00 09:00 Temperature 98.5 F 98.6 F Pulse Rate 72 76 Respiratory 18 18 Rate Blood Pressure 123/63 161/76 O2 Sat by Pulse 97 Oximetry (%) 04/18/16 04/18/16 10:00 14:58 Temperature 98.3 F 97.6 F Pulse Rate 76 68 Respiratory 20 22 Rate Blood Pressure 151/97 140/75 O2 Sat by Pulse Oximetry (%) GENERAL: The patient is awake, alert, and fully oriented, in no acute distress. HEAD: Normal with no signs of trauma. EYES: PERRL, extraocular movements intact, sclera anicteric, conjunctiva clear. No ptosis. ENT: Ears normal, nares patent, oropharynx clear without exudates, moist mucous membranes. NECK: Trachea midline, full range of motion, supple. LUNGS: Breath sounds equal, clear to auscultation bilaterally, no wheezes, no crackles, no accessory muscle use. HEART: Regular rate and rhythm, S1, S2 positive, REGAN 2/6 ,no rub or gallop. ABDOMEN: Soft, nontender, nondistended, normoactive bowel sounds, no guarding, no rebound, no hepatosplenomegaly, no masses appreciated. EXTREMITIES: 2+ pulses, warm, well-perfused, no edema. Unable to bend her knees right >left NEUROLOGICAL: Cranial nerves II through XII grossly intact. Normal speech, gait not observed , unable to ambulate PSYCH: Normal mood, normal affect. SKIN: Warm, dry, normal turgor, no rashes or lesions noted CBC, BMP 04/17/16 09:04/17/16 09:30 CT R knee - + loose body ASSESSMENT AND PLAN: The patient is a 81 year old morbidly obese female with a significant past medical history of hypercholesterolemia, pulmonary embolism, colon cancer, CHF, hypertension, IDDM, who presents with mechanical fall. # Mechanical fall; Intractable BL knee pain R>L , no acute fracture. No intervention indicated . Nedds appropriate pain control and d/c planning. -will increase Percocet -provide pain control prior to PT # Pulmonary Embolism/ History on Eliquis # HLD continue statin # HTN Continue home meds DVT ppx On eliquis Discharge to rehab when bed is arranged
[2016-04-18] MEDS ORDERED: CARVEDILOL 12.5 MG TABLET (FP) PO ONE (16:53)
--- NOTE | 2016-04-18 17:42 | DS ---
Physical Exam: SUBJECTIVE: Patient seen and examined. She is still complaining of knee pain, worse on right side, 8/10, constant. Denies weakness, numbness, chest pain, headache. OBJECTIVE: Vital Signs Period Temp Pulse Resp BP Sys/Dean Pulse Ox Last 24 Hr 97.6 F-98.6 F 68-76 18-22 123-165/63-97 90-97 PHYSICAL EXAM GENERAL: The patient is awake, alert, and fully oriented, in no acute distress. HEAD: Normal with no signs of trauma. EYES: extraocular movements intact, conjunctiva clear. ENT: oropharynx clear without exudates, moist mucous membranes. NECK: full range of motion, supple. LUNGS: Breath sounds equal, clear to auscultation bilaterally, no wheezes, no crackles, no accessory muscle use. HEART: Regular rate and rhythm, S1, S2 without murmur, rub or gallop. ABDOMEN: Obese, soft, nontender, nondistended, normoactive bowel sounds, no guarding, no rebound, no masses. EXTREMITIES: warm, no edema, limited ROM in right knee. NEUROLOGICAL: Normal speech, no facial asymmetry, no tongue deviation, motor; 5/ 5 in all 4 extremities, sensation intact, gait not observed, DTRs nl in LEs. PSYCH: Normal mood, normal affect. SKIN: Warm, dry, normal turgor, no rashes or lesions noted LABS Laboratory Results - last 24 hr 04/17/16 04/17/16 04/18/16 18:36 21:58 06:09 POC Glucometer 81 147 92 04/18/16 04/18/16 12:01 16:37 POC Glucometer 136 122 HOSPITAL COURSE: Date of Admission:04/15/16 Date of Discharge: 04/18/16 Minutes to complete discharge: 50 Discharge Summary Reason For Visit: ACUTE BILATERAL KNEE PAIN Current Active Problems Acute bilateral knee pain (Acute) Frequent falls (Acute) Hospital Course: The patient is a 81 year old morbidly obese female with a significant past medical history of hypercholesterolemia, pulmonary embolism, colon cancer, CHF, hypertension, IDDM, who presents with mechanical fall today. Patient reports she was walking today when her right leg gave out and caused her to fall. Patient reports hitting her head but denies LOC. Patient reports she is not unable to move her right leg s/p fall secondary to pain. Patient denies any fever, chills, nausea, vomiting, diarrhea.Patient is ambulatory with assistance of a walker. Hospital course: Fall due to pain in right knee and leg: could be secondary to osteoarthritis, will consult ortho and f/u CT, knee, fibula and x ray reviewed, no acute pathology.Physical therapy evaluated the pt. She was not able to walk without assistance. Pain control; Oxycodone and Tylenol. Constipation; Mitralax PO qd and Colace PO TID. HLD we continued with home med atorvastatin.HTN-continue with home meds. DM-diabetic diet, Januvia and ISS, hypokalemia, given Kcl 40meq PO, H/o Pulmonary embolism we continued home med eliquis. She was discharged to rehabilitation center. Condition: Improved - Instructions Diet, Activity, Other Instructions: Please take your medications everyday and see your primary care physician in 2 weeks. If you have pain take Oxycodone and Tylenol. If you have severe pain, swelling of the joint, fever, dizziness, chest pain, shortness of breath, bleeding come to Emergency Room as soon as possible. Referrals: Ginette Burris MD [Other] - 2 Weeks STAFF,NOT ON [Primary Care Provider] - Disposition: [facility] - Home Medications Comprehensive Discharge Medication List: Ambulatory Orders Acetaminophen [Tylenol Extra Strength] 500 mg PO Q6H PRN 04/18/16 Apixaban [Eliquis] 5 mg PO DAILY 04/18/16 Atorvastatin Ca [Lipitor] 10 mg PO HS 04/18/16 Docusate Sodium [Colace -] 100 mg PO BID 04/18/16 Furosemide [Lasix -] 20 mg PO DAILY 04/18/16 Lisinopril [Zestril] 2.5 mg PO 04/18/16 Omeprazole 20 mg PO DAILY 04/18/16 Oxycodone HCl [Roxicodone -] 10 mg PO Q6H PRN #0 tablet MDD 40 04/18/16 Polyethylene Glycol 3350 [Miralax 119 gm Btl -] 17 gm PO DAILY bottle 04/18/16 Sennosides [Senna -] 2 tab PO HS PRN #0 tablet 04/18/16 Sitagliptin Phosphate [Januvia] DAILY 04/18/16 Problem List - Problems (1) Acute bilateral knee pain Code(s): M25.561 - PAIN IN RIGHT KNEE M25.562 - PAIN IN LEFT KNEE (2) Frequent falls Code(s): R29.6 - REPEATED FALLS (3) Morbid obesity Code(s): E66.01 - MORBID (SEVERE) OBESITY DUE TO EXCESS CALORIES Qualifiers: Obesity type: unspecified obesity type Qualified Code(s): E66.01 - Morbid (severe) obesity due to excess calories (4) Diabetes Code(s): E11.9 - TYPE 2 DIABETES MELLITUS WITHOUT COMPLICATIONS (5) Hypertension Code(s): I10 - ESSENTIAL (PRIMARY) HYPERTENSION This patient is new to me today: No Emergency Visit: Yes ED Registration Date: 04/15/16 Care time: The patient presented to the Emergency Department on the above date and was hospitalized for further evaluation of their emergent condition. Critical Care patient: No - Discharge Referral Referred to [facility] Med P.C.: No
== END 2016-04-18 18:52 | DRG 554 ==
LOC: JER 15:56 → JERBED 18:55 → UNDOADMIN 19:14 → J5S 04-16 01:39
PROVIDERS: ADMIT Internal Medicine; ATTEND Internal Medicine
DX: M17.0 Bilateral primary osteoarthritis of knee (principal); Z68.41 Body mass index [BMI] 40.0-44.9, adult; E78.00 Pure hypercholesterolemia, unspecified; I11.0 Hypertensive heart disease with heart failure; I50.9 Heart failure, unspecified; E66.01 Morbid (severe) obesity due to excess calories; E11.9 Type 2 diabetes mellitus without complications; Z79.4 Long term (current) use of insulin; Z85.038 Personal history of other malignant neoplasm of large intestine; Z86.711 Personal history of pulmonary embolism; Z79.01 Long term (current) use of anticoagulants; E87.6 Hypokalemia; K59.00 Constipation, unspecified; R29.6 Repeated falls
CPT/HCPCS: 36415; 70450-TC; 73564-TC-LT; 73564-TC-RT; 73700-TC-RT; 80048; 80053; 81003; 81015; 83735; 84100; 85025; 85027; 85610; 85730; 87086; 97116-GP; 97161-GP; 99283-25

== ENCOUNTER 2016-10-30 17:04 | Emergency (ER) | payer OTHER ==
--- NOTE | 2016-10-30 17:16 | PDOC ---
History of Present Illness - General History Source: Patient Exam Limitations: No Limitations - History of Present Illness Initial Comments: 10/30/16 17:35 The patient is an 81 year old female, with significant past medical history of morbid obesity, HLD, HTN, diabetes, CHF, pulmonary embolism, colon cancer, who presents to the emergency room after her right leg gave out and she fell in her bedroom this evening. She explains that she has chronic leg pain and weakness, however, the right leg was hurting worse than usual today and gave out on her. She fell onto her buttocks then fell backwards and hit her head on a folding chair. She could not get up off the floor and pressed her life alert bracelet. The ambulance arrived after she was on the floor for approximately 15 minutes and brought her to the ER. The patient is ambulatory with a walker at her baseline. Denies LOC, headache. Denies visual changes. Denies neck pain, back pain. Allergies: NKDA PCP: Dr. Landin <Anna Choudhary - Last Filed: 10/30/16 17:35> <Andreia Hernández - Last Filed: 11/03/16 09:33> - General Chief Complaint: Injury Stated Complaint: FALL Time Seen by Provider: 10/30/16 17:11 Past History <Anna Choudhary - Last Filed: 10/30/16 17:35> - Past Medical History Anemia: No Asthma: No Cancer: Yes (colon) Cardiac Disorders: No CVA: No COPD: No CHF: Yes Dementia: No Diabetes: Yes Disorders: No HTN: Yes Hypercholesterolemia: Yes Liver Disease: No Seizures: No Thyroid Disease: No - Surgical History Abdominal Surgery: No Appendectomy: No Cardiac Surgery: No Cholecystectomy: No Lung Surgery: No Neurologic Surgery: No Orthopedic Surgery: No - Immunization History Immunization Up to Date: Yes - Psycho/Social/Smoking Cessation Hx Anxiety: No Suicidal Ideation: No Smoking History: Never smoked Have you smoked in the past 12 months: No If you are a former smoker, when did you quit?: 1974 Hx Alcohol Use: No Drug/Substance Use Hx: No Substance Use Type: None Hx Substance Use Treatment: No <Andreia Hernández - Last Filed: 11/03/16 09:33> - Past Medical History Allergies/Adverse Reactions: Allergies Allergy/AdvReac Type Severity Reaction Status Date / Time No Known Drug Allergies Allergy Verified 04/15/16 18:27 lactose AdvReac Verified 04/15/16 18:27 Home Medications: Ambulatory Orders Acetaminophen [Tylenol Extra Strength] 500 mg PO Q6H PRN 04/18/16 Apixaban [Eliquis] 5 mg PO BID 04/18/16 Atorvastatin Ca [Lipitor] 10 mg PO HS 04/18/16 Furosemide [Lasix -] 20 mg PO DAILY 04/18/16 Lisinopril [Zestril] 2.5 mg PO AM 04/18/16 Omeprazole 20 mg PO DAILY 04/18/16 Sitagliptin Phosphate [Januvia] 50 mg PO DAILY 04/18/16 Gabapentin [Neurontin -] 0 mg PO TID 10/30/16 Review of Systems - Review of Systems Able to Perform ROS?: Yes Comments:: 10/30/16 17:36 GENERAL/CONSTITUTIONAL: No fever or chills. No weakness. HEAD, EYES, EARS, NOSE AND THROAT: +contusion to the back of the head. No change in vision. No ear pain or discharge. No sore throat. CARDIOVASCULAR: No chest pain or shortness of breath. RESPIRATORY: No cough, wheezing, or hemoptysis. MUSCULOSKELETAL: +right knee and leg pain. No neck or back pain. SKIN: No rash NEUROLOGIC: No headache, vertigo, loss of consciousness, or change in strength/ sensation. ENDOCRINE: No increased thirst. No abnormal weight change. HEMATOLOGIC/LYMPHATIC: No anemia, easy bleeding, or history of blood clots. ALLERGIC/IMMUNOLOGIC: No hives or skin allergy. <Anna Choudhary - Last Filed: 10/30/16 17:35> *Physical Exam - Vital Signs Last Vital Signs Temp Pulse Resp BP Pulse Ox 98.5 F 93 H 20 170/113 95 10/30/16 17:12 10/30/16 17:12 10/30/16 17:12 10/30/16 17:12 10/30/16 17:12 <Anna Choudhary - Last Filed: 10/30/16 17:35> - Physical Exam Comments: GENERAL: Awake, alert, and fully oriented, in no acute distress HEAD: Small hematoma to the occiput, no open lesions. EYES: PERRLA, EOMI, sclera anicteric, conjunctiva clear ENT: Auricles normal inspection, hearing grossly normal, nares patent, oropharynx clear without exudates. Moist mucosa NECK: Normal ROM, supple, no lymphadenopathy, JVD, or masses LUNGS: Breath sounds equal, clear to auscultation bilaterally. No wheezes, and no crackles HEART: Regular rate and rhythm, normal S1 and S2, no murmurs, rubs or gallops ABDOMEN: Soft, nontender, normoactive bowel sounds. No guarding, no rebound. No masses EXTREMITIES: +R calf tenderness. Normal range of motion. No clubbing or cyanosis. No cords, erythema. L leg nontender. NEUROLOGICAL: Cranial nerves II through XII grossly intact. Normal speech. Motor and sensation intact. +Antalgic gait. SKIN: Warm, Dry, normal turgor, no rashes or lesions noted. <Andreia Hernández - Last Filed: 11/03/16 09:33> Medical Decision Making - Medical Decision Making Pt endorsed to Dr. Patel at 7pm shift change. Awaiting results of DVT study. Head CT with no acute findings. <Andreia Hernández - Last Filed: 11/03/16 09:33> *DC/Admit/Observation/Transfer - Attestations Scribe Attestion: 10/30/16 17:36 Documentation prepared by SEYMOUR Vo, acting as medical instrument cable fabricator for Andreia Hernández MD <Anna Choudhary - Last Filed: 10/30/16 17:35> <Andreia Hernández - Last Filed: 11/03/16 09:33> Diagnosis at time of Disposition: Right leg pain - Discharge Dispostion Disposition: HOME Condition at time of disposition: Stable - Patient Instructions Printed Discharge Instructions: DI for Leg Pain
[2016-10-30 17:17] VITALS: BMI 52.4
[2016-10-30] MEDS ORDERED: NAPROXEN 500 MG TABLET (FP) PO ONE (22:21)
[2016-10-30 22:22] VITALS: BP 169/86; PULSE 81; TEMP 98.7
[2016-10-30] MEDS ORDERED: NAPROXEN 500 MG TABLET (FP) ONE (22:25)
--- NOTE | 2016-10-31 00:26 | PDOC ---
*Physical Exam - Vital Signs Last Vital Signs Temp Pulse Resp BP Pulse Ox 98.7 F 81 20 169/86 95 10/30/16 22:21 10/30/16 22:21 10/30/16 22:21 10/30/16 22:21 10/30/16 22:21 ED Treatment Course - Medications Given in the ED: ED Medications Discontinued Medications Generic Name Dose Route Start Last Admin Trade Name Freq PRN Reason Stop Dose Admin Naproxen 500 mg 10/30/16 22:21 10/30/16 22:23 Naprosyn - PO 10/30/16 22:22 500 mg ONCE ONE Administration Medical Decision Making - Medical Decision Making 10/31/16 00:25 ct scan of head and right leg DVT is negative. Will discharge. *DC/Admit/Observation/Transfer Diagnosis at time of Disposition: Right leg pain - Discharge Dispostion Disposition: HOME Condition at time of disposition: Stable Admit: No - Patient Instructions Printed Discharge Instructions: DI for Leg Pain
--- NOTE | 2016-10-31 14:57 | EKG ---
Test Reason : Blood Pressure : / mmHG Vent. Rate : 091 BPM Atrial Rate : 091 BPM P-R Int : 188 ms QRS Dur : 170 ms QT Int : 426 ms P-R-T Axes : 053 -42 093 degrees QTc Int : 523 ms POOR DATA QUALITY, INTERPRETATION MAY BE ADVERSELY AFFECTED NORMAL SINUS RHYTHM LEFT AXIS DEVIATION LEFT BUNDLE BRANCH BLOCK ABNORMAL ECG WHEN COMPARED WITH ECG OF 27-NOV-2015 18:37, NO SIGNIFICANT CHANGE WAS FOUND Confirmed by KAYLA COOK MD ([id number]) on 10/31/2016 2:57:00 PM Referred By: Confirmed By:KAYLA COOK MD
== END 2016-10-31 00:41 | disposition home or self-care (01) ==
LOC: JER 17:04
DX: S09.8XXA Other specified injuries of head, initial encounter (principal); S00.03XA Contusion of scalp, initial encounter; M79.604 Pain in right leg; W01.190A Fall on same level from slipping, tripping and stumbling with subsequent striking against furniture, initial encounter; Y93.89 Activity, other specified; Y92.032 Bedroom in apartment as the place of occurrence of the external cause; I25.10 Atherosclerotic heart disease of native coronary artery without angina pectoris; I11.0 Hypertensive heart disease with heart failure; E11.9 Type 2 diabetes mellitus without complications; Z79.84 Long term (current) use of oral hypoglycemic drugs; E78.00 Pure hypercholesterolemia, unspecified; Z85.038 Personal history of other malignant neoplasm of large intestine; Z86.711 Personal history of pulmonary embolism; Z79.01 Long term (current) use of anticoagulants; E66.01 Morbid (severe) obesity due to excess calories; Z68.43 Body mass index [BMI] 50.0-59.9, adult; R26.89 Other abnormalities of gait and mobility
CPT/HCPCS: 70450-TC; 93005; 93010; 93971-TC; 99282-25

== ENCOUNTER 2018-04-14 14:26 | Inpatient (IN) | payer OTHER ==
--- NOTE | 2018-04-14 14:57 | PDOC ---
History of Present Illness - General Chief Complaint: Injury Stated Complaint: FALL Time Seen by Provider: 04/14/18 14:50 History Source: Patient Exam Limitations: No Limitations - History of Present Illness Initial Comments: 04/14/18 16:43 83 year old woman with a past medical history of morbid obesity, HLD, HTN, diabetes, CHF, pulmonary embolism, colon cancer who presents after a fall while walking to the bathroom. The patient was walking to the bathroom when she felt like her legs gave out on her and her R knee twisted and she had a "pop." The patient denies head or neck trauma, loss of consciousness. She denies chest pain , shortness of breath, nausea, vomiting, lightheadedness, diarrhea, constipation. She has no other complaints at bedside. Past History - Past Medical History Allergies/Adverse Reactions: Allergies Allergy/AdvReac Type Severity Reaction Status Date / Time No Known Drug Allergies Allergy Verified 04/15/16 18:27 lactose AdvReac Verified 04/15/16 18:27 Home Medications: Ambulatory Orders Acetaminophen [Tylenol Extra Strength] 500 mg PO Q6H PRN 04/18/16 Apixaban [Eliquis] 5 mg PO BID 04/18/16 Atorvastatin Ca [Lipitor] 10 mg PO HS 04/18/16 Furosemide [Lasix -] 20 mg PO DAILY 04/18/16 Lisinopril [Zestril] 2.5 mg PO AM 04/18/16 Omeprazole 20 mg PO DAILY 04/18/16 Sitagliptin Phosphate [Januvia] 50 mg PO DAILY 04/18/16 Gabapentin [Neurontin -] 0 mg PO TID 10/30/16 Anemia: No Asthma: No Cancer: Yes (colon) Cardiac Disorders: No CVA: No COPD: No CHF: Yes Dementia: No Diabetes: Yes Disorders: No HTN: Yes Hypercholesterolemia: Yes Liver Disease: No Seizures: No Thyroid Disease: No - Surgical History Abdominal Surgery: No Appendectomy: No Cardiac Surgery: No Cholecystectomy: No Lung Surgery: No Neurologic Surgery: No Orthopedic Surgery: No - Immunization History Immunization Up to Date: Yes - Suicide/Smoking/Psychosocial Hx Smoking History: Never smoked Have you smoked in the past 12 months: No If you are a former smoker, when did you quit?: 1974 Hx Alcohol Use: No Drug/Substance Use Hx: No Substance Use Type: None Hx Substance Use Treatment: No *Physical Exam - Vital Signs Last Vital Signs Temp Pulse Resp BP Pulse Ox 97.7 F 90 18 167/79 99 04/14/18 14:36 04/14/18 14:36 04/14/18 14:36 04/14/18 14:36 04/14/18 14:36 - Physical Exam Comments: 04/14/18 18:07 + R popliteal pulse NV intact 3/5 plantar flexion R sided 2/2 pain 5/5 dorsiflexion limited ROM of R knee 2/2 pain ctab RRR, small murmur Moderate Sedation - Procedure Monitoring Vital Signs: Procedure Monitoring Vital Signs Temperature 97.7 F 04/14/18 14:36 Pulse Rate 90 04/14/18 14:36 Respiratory Rate 18 04/14/18 14:36 Blood Pressure 167/79 04/14/18 14:36 O2 Sat by Pulse Oximetry (%) 99 04/14/18 14:36 ED Treatment Course - LABORATORY CBC & Chemistry Diagram: 04/14/18 16:29 04/14/18 16:27 - RADIOLOGY Radiology Studies Ordered: Category Date Time Status CHEST X-RAY PORTABLE* [RAD] Stat Radiology 04/14/18 14:56 Ordered Medical Decision Making - Medical Decision Making 04/14/18 18:02 83 year old woman with a past medical history of morbid obesity, HLD, HTN, diabetes, CHF, pulmonary embolism, colon cancer who presents after a fall while walking to the bathroom. The patient was walking to the bathroom when she felt like her legs gave out on her and her R knee twisted and she had a "pop." The patient denies head or neck trauma, loss of consciousness. ED Course: consider R knee fx vs dislocation vs msk Patient is a good historian however will evaluate for acs vs arrythmia vs chf exacerbation vs infection as etiology for fall. Patient unable to bear weight and walks with walker at baseline, likely will require some rehab prior to discharge as she is unable to ambulate cbc, cmp, trop, bnp, ekg, cxr ua Pain control, offered morphine, patient denies and requests Tylenol. EKG: labwork mostly wnl K 3.3 dose 10meq KCl 04/14/18 18:45 XR with possible R knee lateral tibial plateau fx ortho consulted recommend immobilization and partial/non weight bearing for 3 months Patient admitted for inpatient rehab *DC/Admit/Observation/Transfer Diagnosis at time of Disposition: Tibial plateau fracture, right - Discharge Dispostion Condition at time of disposition: Stable Decision to Admit order: Yes - Referrals Referrals: Jessica Peters MD [Primary Care Provider] - - Patient Instructions - Post Discharge Activity
[2018-04-14] MEDS ORDERED: morphine CARPU-JECT 2 MG/1 ML DISP.SYRIN IVPUSH ONE (16:40)
[2018-04-14 16:41] LABS: BASO % 0.3 % (0-2.0); EOS % 0.3 % (0-4.5); HEMATOCRIT 39.6 % (32.4-45.2); HEMOGLOBIN 13.2 GM/dL (10.7-15.3); LYMPH % 9.7 % (8-40); MCH 29.3 pg (25.7-33.7); MCHC 33.2 g/dl (32.0-36.0); MEAN CELL VOLUME 88.3 fl (80-96); MEAN PLT VOLUME 8.6 fl (7.5-11.1); MONO % 3.8 % (3.8-10.2); NEUT % 85.9 % (42.8-82.8); PLATELET COUNT 160 K/MM3 (134-434); RBC 4.49 M/mm3 (3.60-5.2); RDW 15.2 % (11.6-15.6); WHITE BLOOD COUNT 11.1 K/mm3 (4.0-10.0)
[2018-04-14] MEDS ORDERED: ACETAMINOPHEN 325 MG TABLET (FP) PO ONE (16:47)
[2018-04-14] MEDS ORDERED: ACETAMINOPHEN 325 MG TABLET (FP) ONE (16:47)
[2018-04-14 16:55] LABS: INR 1.2 (0.83-1.09); PROTHROMBIN TIME (PATIENT) 14.2 SEC (9.7-13.0)
[2018-04-14 16:58] LABS: ACTIVATED PTT 30.3 SECONDS (25.2-36.5)
--- NOTE | 2018-04-14 17:07 | PDOC ---
Attending Attestation - Resident Resident Name: Va Mcgill - ED Attending Attestation I have performed the following: I have examined & evaluated the patient, The case was reviewed & discussed with the resident, I agree w/resident's findings & plan, Exceptions are as noted - HPI HPI: 04/14/18 17:06 83-year-old obese female who normally has to use a walker to ambulate ,states that both her knees gave out and she fell on her way to the bathroom. No loss of consciousness, no chest pain, no new dyspnea, no nausea, vomiting or diarrhea. No fever, no chills - Physicial Exam PE: 04/14/18 17:07 83-year-old female who is morbidly obese, laying on the gurney complaining of right hip and right knee pain. Head normocephalic/atraumatic, no scalp lacerations, no hematomas Neck no midline tenderness. Lungs clear to auscultation bilaterally CVS regular rate and rhythm S1, S2, holosystolic murmur. Abdomen protuberant abdomen, no tenderness appreciated. Extremities left knee, no tenderness upon palpation. However, in the right knee. There is tenderness in the quadriceps, patella and her right hip. No obvious deformities, she has good DP and PT pulses. The leg is warm Skin warm and dry. Neuro alert and oriented 3, no facial droop, no slurred speech. Psych appropriate 04/14/18 17:20 - Medical Decision Making 04/14/18 17:21 Radiographs hip, pelvis and right knee pending 04/14/18 18:34 Right knee shows tibial plateau fracture -Dr Andre( ortho) stated they recommend partial weight bearing for 3 months with knee immobilizer This pt is obese , requires a walker at all times. She needs PT consult and ortho consult, pt admitted 04/14/18 19:25 04/15/18 01:08
[2018-04-14 17:15] LABS: URINE APPEARANCE CLEAR; URINE BILIRUBIN NEGATIVE (<2.0 mg/dL); URINE COLOR STRAW; URINE GLUCOSE (UA) NEGATIVE (NEGATIVE); URINE KETONE NEGATIVE (NEGATIVE); URINE LEUK ESTERASE NEGATIVE (NEGATIVE); URINE NITRITE NEGATIVE (NEGATIVE); URINE PROTEIN 1+ (NEGATIVE); URINE UROBILINOGEN NEGATIVE mg/dL (0.2-1.0)
[2018-04-14 17:15] LABS: ALBUMIN 3.8 g/dl (3.4-5.0); ALK PHOS 104 U/L (45-117); ANION GAP 7 MMOL/L (8-16); BILIRUBIN,TOTAL 0.3 mg/dL (0.2-1); BLOOD UREA NITROGEN 24 mg/dL (7-18); CALCIUM 8.8 mg/dL (8.5-10.1); CHLORIDE 103 mmol/L (98-107); CO2 34 mmol/L (21-32); GLUCOSE,RANDOM 140 mg/dL (74-106); POTASSIUM 3.3 mmol/L (3.5-5.1); SGOT/AST 17 U/L (15-37); SGPT/ALT 22 U/L (13-61); SODIUM 143 mmol/L (136-145); TOT PROT 7.3 g/dl (6.4-8.2)
[2018-04-14 17:24] LABS: EPI CELLS RARE /HPF (FEW); URINE MUCUS RARE
[2018-04-14] MEDS ORDERED: POTASSIUM CHLORIDE TABS 10 MEQ TABLET.ER (FP) PO ONE (18:06)
[2018-04-14] MEDS ORDERED: POTASSIUM CHLORIDE TABS 10 MEQ TABLET.ER (FP) ONE (18:30)
--- NOTE | 2018-04-14 21:18 | HP ---
Admitting History and Physical - Primary Care Physician PCP: Fareed Carr - Admission Chief Complaint: fall History of Present Illness: 83 year old woman with a past medical history of morbid obesity, HLD, HTN, diabetes, CHF, pulmonary embolism, colon cancer who presents after a fall while walking to the bathroom. The patient was walking to the bathroom when she felt like her legs gave out on her and her R knee twisted and she had a "pop." The patient denies head or neck trauma, loss of consciousness. She denies chest pain , shortness of breath, nausea, vomiting, lightheadedness, diarrhea, constipation. She has no other complaints at bedside. - Past Medical History Cardiovascular: Yes: HTN, Hyperlipdemia Pulmonary: Yes: Pulmonary Embolus, Other (former smoker, morbid obesity, probable ALEJANDRA) Heme/Onc: Yes: Anemia (iron defic 40yrs ago) Endocrine: Yes: Diabetes Mellitus - Past Surgical History Past Surgical History: Yes: - Smoking History Smoking history: Never smoked Have you smoked in the past 12 months: No If you are a former smoker, when did you quit?: 1974 - Alcohol/Substance Use Hx Alcohol Use: No - Social History History of Recent Travel: No Home Medications - Allergies Allergies/Adverse Reactions: Allergies Allergy/AdvReac Type Severity Reaction Status Date / Time No Known Drug Allergies Allergy Verified 04/14/18 19:07 lactose AdvReac Verified 04/14/18 19:07 - Home Medications Home Medications: Ambulatory Orders Acetaminophen [Tylenol Extra Strength] 500 mg PO Q6H PRN 04/18/16 Apixaban [Eliquis] 5 mg PO BID 04/18/16 Atorvastatin Ca [Lipitor] 10 mg PO HS 04/18/16 Furosemide [Lasix -] 20 mg PO DAILY 04/18/16 Lisinopril [Zestril] 20 mg PO AM 04/18/16 Omeprazole 20 mg PO DAILY 04/18/16 Sitagliptin Phosphate [Januvia] 50 mg PO DAILY 04/18/16 Gabapentin [Neurontin -] 0 mg PO TID 10/30/16 Amlodipine Besylate 5 mg PO DAILY 04/15/18 Calcium 600-Vit D3 800 Caplet 1 tab PO DAILY 04/15/18 Family Disease History - Family Disease History Family Disease History: CA: Sister (unknown type) Physical Examination Vital Signs: Vital Signs Temperature 97.7 F 04/14/18 14:36 Pulse Rate 93 H 04/14/18 16:30 Respiratory Rate 18 04/14/18 16:30 Blood Pressure 171/83 H 04/14/18 16:30 O2 Sat by Pulse Oximetry (%) 95 04/14/18 16:30 Constitutional: Yes: No Distress HENT: Yes: Atraumatic Neck: Yes: Supple Cardiovascular: Yes: Regular Rate and Rhythm Respiratory: Yes: CTA Bilaterally Gastrointestinal: Yes: Normal Bowel Sounds Extremities: Yes: WNL Edema: No Edema: LLE: Trace, RLE: Trace Neurological: Yes: Alert, Oriented Labs: CBC, BMP 04/14/18 16:29 04/14/18 16:27 Imaging - Results X-ray: Report Reviewed Problem List - Problems (1) Tibial plateau fracture, right Assessment/Plan: wants to go to rehab Code(s): S82.141A - DISPLACED BICONDYLAR FRACTURE OF RIGHT TIBIA, INIT (2) Acute bilateral knee pain Code(s): M25.561 - PAIN IN RIGHT KNEE; M25.562 - PAIN IN LEFT KNEE (3) Frequent falls Assessment/Plan: pt eval rehab placement Code(s): R29.6 - REPEATED FALLS (4) Diabetes Assessment/Plan: continue home meds Code(s): E11.9 - TYPE 2 DIABETES MELLITUS WITHOUT COMPLICATIONS (5) Hypertension Assessment/Plan: on meds Code(s): I10 - ESSENTIAL (PRIMARY) HYPERTENSION (6) Morbid obesity Code(s): E66.01 - MORBID (SEVERE) OBESITY DUE TO EXCESS CALORIES (7) Sleep apnea Code(s): G47.30 - SLEEP APNEA, UNSPECIFIED Assessment/Plan Laboratory Tests 04/14/18 04/14/18 04/14/18 16:27 16:27 16:29 WBC 11.1 H RBC 4.49 Hgb 13.2 Hct 39.6 MCV 88.3 MCH 29.3 MCHC 33.2 RDW 15.2 Plt Count 160 MPV 8.6 Absolute Neuts (auto) 9.5 H Neutrophils % 85.9 H D Lymphocytes % 9.7 D Monocytes % 3.8 Eosinophils % 0.3 D Basophils % 0.3 Nucleated RBC % 0 PT with INR INR PTT (Actin FS) Sodium 143 Potassium 3.3 L Chloride 103 Carbon Dioxide 34 H Anion Gap 7 L BUN 24 H Creatinine 1.0 Creat Clearance w eGFR 52.82 Random Glucose 140 H Calcium 8.8 Total Bilirubin 0.3 AST 17 ALT 22 Alkaline Phosphatase 104 Troponin I < 0.02 B-Natriuretic Peptide Total Protein 7.3 Albumin 3.8 Urine Color Urine Appearance Urine pH Ur Specific [place] Urine Protein Urine Glucose (UA) Urine Ketones Urine Blood Urine Nitrite Urine Bilirubin Urine Urobilinogen Ur Leukocyte Esterase Urine WBC (Auto) Urine RBC (Auto) Ur Epithelial Cells Urine Mucus Blood Type O POSITIVE Antibody Screen Negative 04/14/18 04/14/18 04/14/18 16:29 17:00 17:20 WBC RBC Hgb Hct MCV MCH MCHC RDW Plt Count MPV Absolute Neuts (auto) Neutrophils % Lymphocytes % Monocytes % Eosinophils % Basophils % Nucleated RBC % PT with INR 14.20 H INR 1.20 H PTT (Actin FS) 30.3 Sodium Potassium Chloride Carbon Dioxide Anion Gap BUN Creatinine Creat Clearance w eGFR Random Glucose Calcium Total Bilirubin AST ALT Alkaline Phosphatase Troponin I B-Natriuretic Peptide 271.4 Total Protein Albumin Urine Color Straw Urine Appearance Clear Urine pH 5.0 Ur Specific [place] 1.013 Urine Protein 1+ H Urine Glucose (UA) Negative Urine Ketones Negative Urine Blood 1+ H Urine Nitrite Negative Urine Bilirubin Negative Urine Urobilinogen Negative Ur Leukocyte Esterase Negative Urine WBC (Auto) 1 Urine RBC (Auto) None Ur Epithelial Cells Rare Urine Mucus Rare Blood Type Antibody Screen Active Medications Generic Name Dose Route Start Last Admin Trade Name Freq PRN Reason Stop Dose Admin Apixaban 5 mg 04/14/18 22:00 04/16/18 10:28 Eliquis - PO 5 mg BID CHRISTINA Administration Atorvastatin Calcium 10 mg 04/14/18 22:00 04/15/18 21:52 Lipitor - PO 10 mg HS CHRISTINA Administration Docusate Sodium 100 mg 04/14/18 21:22 Colace - PO Q12H PRN CONSTIPATION Furosemide 20 mg 04/15/18 10:00 04/16/18 10:28 Lasix - PO 20 mg DAILY CHRISTINA Administration Gabapentin 100 mg 04/14/18 22:00 04/16/18 13:35 Neurontin - PO 100 mg TID CHRISTIAN Administration Ibuprofen 600 mg 04/14/18 21:53 04/16/18 05:40 Motrin - PO 600 mg Q8H PRN Administration PAIN LEVEL 4 - 6 Lisinopril 2.5 mg 04/15/18 10:00 04/16/18 10:28 Prinivil PO 2.5 mg DAILY CHRISTINA Administration Oxycodone HCl 10 mg 04/14/18 21:22 04/16/18 10:27 Roxicodone - PO 10 mg Q6H PRN Administration PAIN LEVEL 7 - 10 Pantoprazole Sodium 20 mg 04/15/18 10:00 04/16/18 10:27 Protonix - PO 20 mg DAILY CHRISTINA Administration Potassium Chloride 40 meq 04/15/18 10:00 04/16/18 10:27 K-Dur - PO 40 meq DAILY CHRISTINA Administration Sitagliptin Phosphate 50 mg 04/15/18 07:00 04/16/18 06:24 Januvia - PO 50 mg DAILY@0700 CHRISTINA Administration
[2018-04-14] MEDS ORDERED: DOCUSATE SODIUM 100 MG CAPSULE (FP) PO PRN (21:22)
[2018-04-14] MEDS ORDERED: POTASSIUM CHLORIDE TABS 20 MEQ TABLET.ER (FP) PO SCH (21:30)
[2018-04-14] MEDS ORDERED: IBUPROFEN 600 MG TABLET (FP) PO PRN (21:53)
[2018-04-14] MEDS ORDERED: ATORVASTATIN CA 10 MG TABLET (FP) ONE (22:03)
[2018-04-14] MEDS: ATORVASTATIN CA 10 MG TABLET (FP) PO SCH (22:07)
[2018-04-14] MEDS: APIXABAN 5 MG TABLET PO SCH (22:07)
[2018-04-14] MEDS: GABAPENTIN 100 MG CAPSULE (FP) PO SCH (22:07)
[2018-04-15] MEDS ORDERED: GABAPENTIN 100 MG CAPSULE (FP) ONE (06:15)
[2018-04-15] MEDS ORDERED: sitaGLIPtin PHOSPHATE 50 MG TABLET ONE (06:15)
[2018-04-15] MEDS: GABAPENTIN 100 MG CAPSULE (FP) PO SCH ×3 (06:23→21:52)
[2018-04-15] MEDS: sitaGLIPtin PHOSPHATE 50 MG TABLET PO SCH (06:23)
[2018-04-15] MEDS ORDERED: ACETAMINOPHEN 325 MG TABLET (FP) PO ONE (06:36)
[2018-04-15] MEDS ORDERED: ACETAMINOPHEN 325 MG TABLET (FP) ONE (06:38)
[2018-04-15] MEDS: FUROSEMIDE 20 MG TABLET (FP) PO SCH (09:15)
[2018-04-15] MEDS: LISINOPRIL 5 MG TABLET (FP) PO SCH (09:15)
[2018-04-15] MEDS: POTASSIUM CHLORIDE TABS 20 MEQ TABLET.ER (FP) PO SCH (09:15)
[2018-04-15] MEDS: APIXABAN 5 MG TABLET PO SCH ×2 (09:15→22:24)
[2018-04-15] MEDS: PANTOPRAZOLE 20 MG TABLET (FP) PO SCH (09:15)
--- NOTE | 2018-04-15 11:52 | EKG ---
Test Reason : Blood Pressure : / mmHG Vent. Rate : 088 BPM Atrial Rate : 088 BPM P-R Int : 190 ms QRS Dur : 182 ms QT Int : 454 ms P-R-T Axes : 068 -42 096 degrees QTc Int : 549 ms NORMAL SINUS RHYTHM LEFT AXIS DEVIATION LEFT BUNDLE BRANCH BLOCK ABNORMAL ECG WHEN COMPARED WITH ECG OF 30-OCT-2016 17:31, NO SIGNIFICANT CHANGE WAS FOUND Confirmed by MD YULI, NATASHA ([id number]) on 04/15/2018 11:52:11 AM Referred By: Confirmed By:NATASHA ROLDAN MD
[2018-04-15 16:58] LABS: URINE APPEARANCE CLEAR; URINE BILIRUBIN NEGATIVE (<2.0 mg/dL); URINE COLOR LTYELLOW; URINE GLUCOSE (UA) NEGATIVE (NEGATIVE); URINE KETONE NEGATIVE (NEGATIVE); URINE LEUK ESTERASE TRACE (NEGATIVE); URINE NITRITE NEGATIVE (NEGATIVE); URINE PROTEIN 1+ (NEGATIVE); URINE UROBILINOGEN NEGATIVE mg/dL (0.2-1.0)
[2018-04-15 17:01] LABS: EPI CELLS RARE /HPF (FEW); URINE HYALINE CAST 3 /lpf; URINE MUCUS RARE
--- NOTE | 2018-04-15 18:09 | PN ---
Progress Note, Physician History of Present Illness: no complaints - Current Medication List Current Medications: Active Medications Apixaban (Eliquis -) 5 mg PO BID [facility] Last Admin: 04/15/18 09:15 Dose: 5 mg Atorvastatin Calcium (Lipitor -) 10 mg PO HS [facility] Last Admin: 04/14/18 22:07 Dose: 10 mg Docusate Sodium (Colace -) 100 mg PO Q12H PRN PRN Reason: CONSTIPATION Furosemide (Lasix -) 20 mg PO DAILY [facility] Last Admin: 04/15/18 09:15 Dose: 20 mg Gabapentin (Neurontin -) 100 mg PO TID [facility] Last Admin: 04/15/18 15:19 Dose: 100 mg Ibuprofen (Motrin -) 600 mg PO Q8H PRN PRN Reason: PAIN LEVEL 4 - 6 Lisinopril (Prinivil) 2.5 mg PO DAILY [facility] Last Admin: 04/15/18 09:15 Dose: 2.5 mg Oxycodone HCl (Roxicodone -) 10 mg PO Q6H PRN PRN Reason: PAIN LEVEL 7 - 10 Pantoprazole Sodium (Protonix -) 20 mg PO DAILY [facility] Last Admin: 04/15/18 09:15 Dose: 20 mg Potassium Chloride (K-Dur -) 40 meq PO DAILY [facility] Last Admin: 04/15/18 09:15 Dose: 40 meq Sitagliptin Phosphate (Januvia -) 50 mg PO DAILY@0700 [facility] Last Admin: 04/15/18 06:23 Dose: 50 mg - Objective Vital Signs: Vital Signs Temperature 98.2 F 04/15/18 14:48 Pulse Rate 96 H 04/15/18 14:48 Respiratory Rate 18 04/15/18 14:48 Blood Pressure 157/77 04/15/18 14:48 O2 Sat by Pulse Oximetry (%) 98 04/15/18 13:49 Constitutional: Yes: No Distress HENT: Yes: Atraumatic Neck: Yes: Supple Cardiovascular: Yes: Regular Rate and Rhythm Respiratory: Yes: CTA Bilaterally Gastrointestinal: Yes: Normal Bowel Sounds Extremities: Yes: WNL Edema: Yes Edema: LLE: Trace, RLE: Trace Peripheral Pulses WNL: Yes Neurological: Yes: Alert, Oriented Labs: CBC, BMP 04/14/18 16:29 04/14/18 16:27 INR, PTT INR 1.20 (0.83-1.09) H 04/14/18 16:29 Problem List - Problems (1) Tibial plateau fracture, right Assessment/Plan: wants to go to rehab Code(s): S82.141A - DISPLACED BICONDYLAR FRACTURE OF RIGHT TIBIA, INIT (2) Acute bilateral knee pain Code(s): M25.561 - PAIN IN RIGHT KNEE; M25.562 - PAIN IN LEFT KNEE (3) Frequent falls Assessment/Plan: pt eval rehab placement Code(s): R29.6 - REPEATED FALLS (4) Diabetes Assessment/Plan: continue home meds Code(s): E11.9 - TYPE 2 DIABETES MELLITUS WITHOUT COMPLICATIONS (5) Hypertension Assessment/Plan: on meds Code(s): I10 - ESSENTIAL (PRIMARY) HYPERTENSION (6) Morbid obesity Code(s): E66.01 - MORBID (SEVERE) OBESITY DUE TO EXCESS CALORIES (7) Sleep apnea Code(s): G47.30 - SLEEP APNEA, UNSPECIFIED
[2018-04-15] MEDS: ATORVASTATIN CA 10 MG TABLET (FP) PO SCH (21:52)
[2018-04-16] MEDS: GABAPENTIN 100 MG CAPSULE (FP) PO SCH ×3 (05:36→21:09)
[2018-04-16] MEDS: sitaGLIPtin PHOSPHATE 50 MG TABLET PO SCH (06:24)
--- NOTE | 2018-04-16 10:11 | CONSULT ---
Consult Consult Specialty:: orthopedics Reason for Consultation:: right knee pain - History of Present Illness History of Present Illness: 83y/o female c/o right knee pain which began yesterday after she was walking to the bathroom and the knee gave out and she immediately had pain. she was unable to walk afterwards. She continues to have pain in the right knee which is worse with movement and better with rest. She denies any numbness or tingling in the RLE. There are no other associated, aggravating or relieving factors. - History Source History Provided By: Patient, Medical Record - Past Medical History Cardio/Vascular: Yes: HTN, Hyperlipdemia Pulmonary: Yes: Pulmonary Embolus, Other (former smoker, morbid obesity, probable ALEJANDRA) Endocrine: Yes: Diabetes Mellitus - Past Surgical History Past Surgical History: Yes: - Alcohol/Substance Use Hx Alcohol Use: No - Smoking History Smoking history: Never smoked Have you smoked in the past 12 months: No If you are a former smoker, when did you quit?: 1974 - Social History Usual Living Arrangement: Assisted Living History of Recent Travel: No Home Medications - Allergies Allergies/Adverse Reactions: Allergies Allergy/AdvReac Type Severity Reaction Status Date / Time No Known Drug Allergies Allergy Verified 04/14/18 19:07 lactose AdvReac Verified 04/14/18 19:07 - Home Medications Home Medications: Ambulatory Orders Acetaminophen [Tylenol Extra Strength] 500 mg PO Q6H PRN 04/18/16 Apixaban [Eliquis] 5 mg PO BID 04/18/16 Atorvastatin Ca [Lipitor] 10 mg PO HS 04/18/16 Furosemide [Lasix -] 20 mg PO DAILY 04/18/16 Lisinopril [Zestril] 20 mg PO AM 04/18/16 Omeprazole 20 mg PO DAILY 04/18/16 Sitagliptin Phosphate [Januvia] 50 mg PO DAILY 04/18/16 Gabapentin [Neurontin -] 0 mg PO TID 10/30/16 Amlodipine Besylate 5 mg PO DAILY 04/15/18 Calcium 600-Vit D3 800 Caplet 1 tab PO DAILY 04/15/18 Family Disease History - Family Disease History Family Disease History: CA: Sister (unknown type) Review of Systems - Review of Systems Constitutional: reports: No Symptoms Eyes: reports: No Symptoms HENT: reports: No Symptoms Neck: reports: No Symptoms Cardiovascular: reports: No Symptoms Respiratory: reports: No Symptoms Gastrointestinal: reports: No Symptoms Genitourinary: reports: No Symptoms Breasts: reports: No Symptoms Reported Musculoskeletal: reports: Extremity Pain Integumentary: reports: No Symptoms Neurological: reports: No Symptoms Endocrine: reports: No Symptoms Hematology/Lymphatic: reports: No Symptoms Psychiatric: reports: No Symptoms Physical Exam Vital Signs: Vital Signs Temperature 99.8 F H 04/16/18 05:45 Pulse Rate 106 H 04/16/18 05:45 Respiratory Rate 18 04/16/18 05:45 Blood Pressure 157/92 04/16/18 05:45 O2 Sat by Pulse Oximetry (%) 98 04/15/18 21:00 Constitutional: Yes: Well Nourished, No Distress, Calm Musculoskeletal: Yes: Other (RLE: Large effusion of the right knee. Diffuse tenderness along the Tibal plateau both medially and laterally. Diffuse tenderness along the medial and lateral joint spaces. Pain with motion of the knee. Resting and extension and pain with flexion. Patella centrally tracking. Calf soft, NT. NVID.) Labs: CBC, BMP 04/14/18 16:29 04/14/18 16:27 Imaging - Results X-ray: Report Reviewed, Image Reviewed Cat Scan: Report Reviewed, Image Reviewed (Minimaly displaced tibial plateau fracture) Assessment/Plan # Right knee minimally displaced tibial plateau fracture -Pain control, PT NWB RLE, ROM ok -Knee immoblizer -DVT prophylaxis, on eliquis -Follow up as outpatient in 2-[address] Beverly
[2018-04-16] MEDS: POTASSIUM CHLORIDE TABS 20 MEQ TABLET.ER (FP) PO SCH (10:27)
[2018-04-16] MEDS: PANTOPRAZOLE 20 MG TABLET (FP) PO SCH (10:27)
[2018-04-16] MEDS: oxyCODONE HCL 5 MG TABLET PO PRN ×2 (10:27→19:33)
[2018-04-16] MEDS: LISINOPRIL 5 MG TABLET (FP) PO SCH (10:28)
[2018-04-16] MEDS: FUROSEMIDE 20 MG TABLET (FP) PO SCH (10:28)
[2018-04-16] MEDS: APIXABAN 5 MG TABLET PO SCH ×2 (10:28→21:09)
--- NOTE | 2018-04-16 14:33 | PN ---
Progress Note, Physician History of Present Illness: no complaints - Current Medication List Current Medications: Active Medications Apixaban (Eliquis -) 5 mg PO BID [facility] Last Admin: 04/16/18 10:28 Dose: 5 mg Atorvastatin Calcium (Lipitor -) 10 mg PO HS [facility] Last Admin: 04/15/18 21:52 Dose: 10 mg Docusate Sodium (Colace -) 100 mg PO Q12H PRN PRN Reason: CONSTIPATION Furosemide (Lasix -) 20 mg PO DAILY [facility] Last Admin: 04/16/18 10:28 Dose: 20 mg Gabapentin (Neurontin -) 100 mg PO TID [facility] Last Admin: 04/16/18 13:35 Dose: 100 mg Ibuprofen (Motrin -) 600 mg PO Q8H PRN PRN Reason: PAIN LEVEL 4 - 6 Last Admin: 04/16/18 05:40 Dose: 600 mg Lisinopril (Prinivil) 2.5 mg PO DAILY [facility] Last Admin: 04/16/18 10:28 Dose: 2.5 mg Oxycodone HCl (Roxicodone -) 10 mg PO Q6H PRN PRN Reason: PAIN LEVEL 7 - 10 Last Admin: 04/16/18 10:27 Dose: 10 mg Pantoprazole Sodium (Protonix -) 20 mg PO DAILY [facility] Last Admin: 04/16/18 10:27 Dose: 20 mg Potassium Chloride (K-Dur -) 40 meq PO DAILY [facility] Last Admin: 04/16/18 10:27 Dose: 40 meq Sitagliptin Phosphate (Januvia -) 50 mg PO DAILY@0700 [facility] Last Admin: 04/16/18 06:24 Dose: 50 mg - Objective Vital Signs: Vital Signs Temperature 98.6 F 04/16/18 10:14 Pulse Rate 94 H 04/16/18 10:14 Respiratory Rate 20 04/16/18 10:14 Blood Pressure 146/75 04/16/18 10:14 O2 Sat by Pulse Oximetry (%) 92 L 04/16/18 09:00 Constitutional: Yes: Calm HENT: Yes: Atraumatic Neck: Yes: Supple Cardiovascular: Yes: Regular Rate and Rhythm Respiratory: Yes: CTA Bilaterally, Rhonchi Gastrointestinal: Yes: Normal Bowel Sounds Extremities: Yes: WNL Edema: Yes Edema: LLE: Trace, RLE: Trace Peripheral Pulses WNL: Yes Neurological: Yes: Alert, Oriented Labs: CBC, BMP 04/14/18 16:29 04/14/18 16:27 INR, PTT INR 1.20 (0.83-1.09) H 04/14/18 16:29 Problem List - Problems (1) Tibial plateau fracture, right Assessment/Plan: wants to go to rehab prn pain meds Code(s): S82.141A - DISPLACED BICONDYLAR FRACTURE OF RIGHT TIBIA, INIT (2) Acute bilateral knee pain Code(s): M25.561 - PAIN IN RIGHT KNEE; M25.562 - PAIN IN LEFT KNEE (3) Frequent falls Assessment/Plan: pt eval rehab placement Code(s): R29.6 - REPEATED FALLS (4) Diabetes Assessment/Plan: continue home meds Code(s): E11.9 - TYPE 2 DIABETES MELLITUS WITHOUT COMPLICATIONS (5) Hypertension Assessment/Plan: on meds Code(s): I10 - ESSENTIAL (PRIMARY) HYPERTENSION (6) Morbid obesity Code(s): E66.01 - MORBID (SEVERE) OBESITY DUE TO EXCESS CALORIES (7) Sleep apnea Code(s): G47.30 - SLEEP APNEA, UNSPECIFIED
[2018-04-16] MEDS: ATORVASTATIN CA 10 MG TABLET (FP) PO SCH (21:09)
[2018-04-17] MEDS: sitaGLIPtin PHOSPHATE 50 MG TABLET PO SCH (06:09)
[2018-04-17] MEDS: GABAPENTIN 100 MG CAPSULE (FP) PO SCH ×2 (06:09→14:04)
[2018-04-17] MEDS: APIXABAN 5 MG TABLET PO SCH (09:52)
[2018-04-17] MEDS: PANTOPRAZOLE 20 MG TABLET (FP) PO SCH (09:52)
[2018-04-17] MEDS: LISINOPRIL 5 MG TABLET (FP) PO SCH (09:52)
[2018-04-17] MEDS: POTASSIUM CHLORIDE TABS 20 MEQ TABLET.ER (FP) PO SCH (09:52)
[2018-04-17] MEDS: FUROSEMIDE 20 MG TABLET (FP) PO SCH (10:00)
--- NOTE | 2018-04-17 11:36 | DS ---
Physical Examination Vital Signs: Vital Signs Temperature 100.0 F H 04/17/18 06:00 Pulse Rate 66 04/17/18 06:00 Respiratory Rate 20 04/17/18 06:00 Blood Pressure 128/57 L 04/17/18 06:00 O2 Sat by Pulse Oximetry (%) 93 L 04/16/18 21:00 Constitutional: Yes: No Distress HENT: Yes: Atraumatic Neck: Yes: Supple Cardiovascular: Yes: Regular Rate and Rhythm Respiratory: Yes: CTA Bilaterally Gastrointestinal: Yes: Normal Bowel Sounds Extremities: Yes: WNL Edema: Yes Edema: LLE: Trace, RLE: Trace Peripheral Pulses WNL: Yes Neurological: Yes: Alert, Oriented Labs: CBC, BMP 04/14/18 16:29 04/14/18 16:27 Discharge Summary Reason For Visit: TIBIAL PLATEAU FRACTURE, RIGHT Current Active Problems Tibial plateau fracture, right (Acute) Condition: Stable - Instructions Referrals: Jessica Peters MD [Primary Care Provider] - Disposition: LONG-TERM FACILITY - Home Medications Comprehensive Discharge Medication List: Ambulatory Orders Acetaminophen [Tylenol Extra Strength] 500 mg PO Q6H PRN 04/18/16 Apixaban [Eliquis] 5 mg PO BID 04/18/16 Atorvastatin Ca [Lipitor] 10 mg PO HS 04/18/16 Furosemide [Lasix -] 20 mg PO DAILY 04/18/16 Lisinopril [Zestril] 20 mg PO AM 04/18/16 Omeprazole 20 mg PO DAILY 04/18/16 Sitagliptin Phosphate [Januvia] 50 mg PO DAILY 04/18/16 Gabapentin [Neurontin -] 0 mg PO TID 10/30/16 Amlodipine Besylate 5 mg PO DAILY 04/15/18 Calcium 600-Vit D3 800 Caplet 1 tab PO DAILY 04/15/18 dc snf
[2018-04-17 11:54] VITALS: BMI 43.5
[2018-04-17 15:24] VITALS: BP 142/62; PULSE 100; TEMP 99.1
== END 2018-04-17 15:43 | DRG 563 ==
LOC: JER 14:26 → JERBED 18:47 → J6S 04-15 14:32
PROVIDERS: ADMIT Internal Medicine; ATTEND Internal Medicine
DX: S82.141A Displaced bicondylar fracture of right tibia, initial encounter for closed fracture (principal); Z68.41 Body mass index [BMI] 40.0-44.9, adult; I11.0 Hypertensive heart disease with heart failure; I50.9 Heart failure, unspecified; E66.01 Morbid (severe) obesity due to excess calories; E11.9 Type 2 diabetes mellitus without complications; W01.0XXA Fall on same level from slipping, tripping and stumbling without subsequent striking against object, initial encounter; Y93.89 Activity, other specified; Y92.031 Bathroom in apartment as the place of occurrence of the external cause; Y99.8 Other external cause status; M25.562 Pain in left knee; G47.30 Sleep apnea, unspecified; Z86.711 Personal history of pulmonary embolism; Z85.038 Personal history of other malignant neoplasm of large intestine; E78.5 Hyperlipidemia, unspecified; Z87.891 Personal history of nicotine dependence; M25.551 Pain in right hip; D50.9 Iron deficiency anemia, unspecified; G47.33 Obstructive sleep apnea (adult) (pediatric); R29.6 Repeated falls
CPT/HCPCS: 36415; 71045-TC-FY; 73523-TC-FY; 73552-TC-RT-FY; 73560-TC-RT-FY; 73700-TC-RT; 80053; 81003; 81015; 82962; 83880; 84484; 85025; 85610; 85730; 86850; 86900; 86901; 93005; 93010; 97116-GP; 97162-GP; 99284-25

== ENCOUNTER 2018-08-15 18:33 | Inpatient (IN) | payer OTHER ==
[2018-08-15] MEDS ORDERED: ACETAMINOPHEN 325 MG TABLET (FP) PO ONE (19:46)
--- NOTE | 2018-08-15 20:03 | PDOC ---
History of Present Illness - General History Source: Patient Exam Limitations: No Limitations - History of Present Illness Initial Comments: 08/15/18 19:49 83 y/o F with PMHx of Morbid obesity, HTN, HLD, DM, CHF, Colon Ca, multiple falls, ?Previous PE presents with SOB + Recent Fall today. Patient was admitted to [facility] in March after a Fall and treated for a Right Tibial plateau fx treated nonoperatively. Since this admission, she has had chronic pain in her Right hip. Today while getting out of bed without assistance, patient slid out of bed and landed on her Left hip. At this point, her RN CASE MANAGER was unsuccessful in helping her up and alerted EMS who brought the patient to the ED. She denies any tonic clonic movements or loss of bowel or bladder control. She additionally denies hitting her head and denies any new numbness or tingling. She complains of chronic numbness over her b/l knees, Chronic Orthopnea, Decreased exercise tolerance Additionally, patient mentions having 4-5 loose BM's yesterday but has resolved today, chills, and nausea. Patient lives alone but admits to having a RN CASE MANAGER from 9-7, 7 days a week., Denies any travel, sick contacts or recent medication changes. Denies any Fevers, chest pain, vomiting, constipation, dysuria, visual changes, photophobia. PCP: [facility] PMHx: As above PSHx: Colon Ca resection Allergies: NKDA Social: Former Smoker, Denies EtOH or Drug use FHx: Noncontributory <Fide Birmingham - Last Filed: 08/16/18 03:39> <Mirta Adams - Last Filed: 08/16/18 09:29> - General Chief Complaint: Injury Stated Complaint: FALL Time Seen by Provider: 08/15/18 19:19 Past History - Past Medical History Anemia: No Asthma: No Cancer: Yes (colon) Cardiac Disorders: No CVA: No COPD: No CHF: Yes Dementia: No Diabetes: Yes GI Disorders: No Disorders: No HTN: Yes Hypercholesterolemia: Yes Liver Disease: No Seizures: No Thyroid Disease: No - Surgical History Abdominal Surgery: No Appendectomy: No Cardiac Surgery: No Cholecystectomy: No Lung Surgery: No Neurologic Surgery: No Orthopedic Surgery: No - Immunization History Immunization Up to Date: Yes - Suicide/Smoking/Psychosocial Hx Smoking History: Never smoked Have you smoked in the past 12 months: No If you are a former smoker, when did you quit?: 1974 Information on smoking cessation initiated: No Hx Alcohol Use: No Drug/Substance Use Hx: No Substance Use Type: None Hx Substance Use Treatment: No <Fide Birmingham - Last Filed: 08/16/18 03:39> <Mirta Adams - Last Filed: 08/16/18 09:29> - Past Medical History Allergies/Adverse Reactions: Allergies Allergy/AdvReac Type Severity Reaction Status Date / Time No Known Drug Allergies Allergy Verified 04/14/18 19:07 lactose AdvReac Verified 04/14/18 19:07 Home Medications: Ambulatory Orders Acetaminophen [Tylenol Extra Strength] 500 mg PO Q6H PRN 04/18/16 Apixaban [Eliquis] 5 mg PO BID 04/18/16 Atorvastatin Ca [Lipitor] 10 mg PO HS 04/18/16 Furosemide [Lasix -] 20 mg PO DAILY 04/18/16 Lisinopril [Zestril] 20 mg PO AM 04/18/16 Omeprazole 20 mg PO DAILY 04/18/16 Sitagliptin Phosphate [Januvia] 50 mg PO DAILY 04/18/16 Gabapentin [Neurontin -] 100 mg PO TID 10/30/16 Amlodipine Besylate 5 mg PO DAILY 04/15/18 Calcium Carbonate/Vitamin D3 [Calcium 600 + Vit D Tablet] 1 each PO DAILY Review of Systems - Review of Systems Able to Perform ROS?: Yes Is the patient limited Estonian proficient: No Constitutional: Yes: Weakness. No: Chills, Fever HEENTM: No: Blurred Vision, Double Vision Respiratory: Yes: Orthopnea (Chronic), Shortness of Breath (chronic). No: Cough Cardiac (ROS): No: Chest Pain, Palpitations, Syncope ABD/GI: Yes: Diarrhea, Nausea. No: Abdominal Distended, Constipated, Vomiting : No: Dysuria, Hematuria Neurological: No: Numbness, Tingling <Fide Birmingham - Last Filed: 08/16/18 03:39> *Physical Exam - Vital Signs Last Vital Signs Temp Pulse Resp BP Pulse Ox 98.4 F 96 H 18 167/69 100 08/15/18 19:15 08/15/18 19:15 08/15/18 19:15 08/15/18 19:15 08/15/18 19:15 - Physical Exam General Appearance: Yes: Nourished, Appropriately Dressed HEENT: positive: EOMI, BENSON. negative: Pharyngeal Erythema, Tonsillar Exudate Neck: positive: Supple Respiratory/Chest: positive: Normal Breath Sounds, Accessory Muscle Use. negative: Crackles, Rhonchi, Wheezing Cardiovascular: positive: Regular Rhythm, Regular Rate, S1, S2. negative: Edema , JVD, Murmur Gastrointestinal/Abdominal: positive: Normal Bowel Sounds, Tender (To palpation , Chronic in the b/l Upper quadrants, New in the suprapubic area), Other (Obese) . negative: Guarding, Rebound Musculoskeletal: positive: Other (Tender to palpation over the R Hip, ROM Intact b/l hips). negative: CVA Tenderness Extremity: positive: Calf Tenderness (Chronic). negative: Swelling Neurologic: positive: plate stacker II-XII NML intact, Fully Oriented, Alert, Motor Strength 5/5. negative: Sensory Deficit <Fide Birmingham - Last Filed: 08/16/18 03:39> - Vital Signs Last Vital Signs Temp Pulse Resp BP Pulse Ox 98.3 F 100 H 18 153/75 95 08/16/18 02:46 08/16/18 03:55 08/16/18 03:55 08/16/18 03:55 08/16/18 07:10 <Mirta Adams - Last Filed: 08/16/18 09:29> ED Treatment Course - LABORATORY CBC & Chemistry Diagram: 08/15/18 22:15 08/15/18 22:15 - RADIOLOGY Radiology Studies Ordered: Category Date Time Status CHEST X-RAY PORTABLE* [RAD] Stat Radiology 08/15/18 19:46 Ordered HIP & PELVIS-LEFT [RAD] Stat Radiology 08/15/18 19:46 Ordered HIP & PELVIS-RIGHT [RAD] Stat Radiology 08/15/18 19:46 Ordered <Fide Birmingham - Last Filed: 08/16/18 03:39> - LABORATORY CBC & Chemistry Diagram: 08/15/18 22:15 08/15/18 22:15 - ADDITIONAL ORDERS Additional order review: Laboratory Results 08/15/18 08/15/18 22:15 22:15 D-Dimer 1510 H Sodium 140 Potassium 3.8 Chloride 102 Carbon Dioxide 31 Anion Gap 7 L BUN 11.9 Creatinine 0.9 Est GFR (CKD-EPI)AfAm 68.05 Est GFR (CKD-EPI)NonAf 58.71 Random Glucose 117 H Calcium 9.1 Phosphorus 2.3 L Magnesium 2.0 Total Bilirubin 0.4 AST 28 ALT 15 Alkaline Phosphatase 107 Total Protein 7.4 Albumin 3.5 08/15/18 22:15 RBC 4.75 MCV 85.1 MCHC 32.3 RDW 16.3 H MPV 8.7 Neutrophils % 75.6 Lymphocytes % 14.8 D Monocytes % 8.0 D Eosinophils % 0.5 Basophils % 1.1 D - Medications Given in the ED: ED Medications Discontinued Medications Generic Name Dose Route Start Last Admin Trade Name Freq PRN Reason Stop Dose Admin Acetaminophen 975 mg 08/15/18 19:46 08/15/18 20:46 Tylenol - PO 08/15/18 19:47 975 mg ONCE ONE Administration Azithromycin 500 mg/ Dextrose 250 mls @ 250 mls/hr 08/16/18 02:39 08/16/18 03 :01 IVPB 08/16/18 03:38 250 mls/hr ONCE ONE Administration Ceftriaxone Sodium 1 gm/ 50 mls @ 100 mls/hr 08/16/18 02:38 08/16/18 03:01 Dextrose IVPB 08/16/18 03:07 100 mls/hr ONCE ONE Administration <Mirta Adams - Last Filed: 08/16/18 09:29> Medical Decision Making - Medical Decision Making 08/15/18 20:03 83 y/o F with PMHx of Morbid obesity, HTN, HLD, DM, CHF, Colon Ca, multiple falls, ?Previous PE presents with SOB + Recent Fall today. Weakness and fall likely due to deconditioning. A&Ox3, VSS, Patient recalls episode with no seizure like activity, No associated FND. In the setting of ?Previous PE, Concern for PE causing SOB; Modified wells score 3, thus will check D-Dimer (age adjusted level of 840) and CXR. EKG reveals NSR, LBBB (Old), VR 98, QTc 513 Given Fall, will check b/l Hip and Pelvis XRay. Tylenol for pain control. New suprapubic tenderness to palpation, will Check UA. Additionally check CBC, CMP, mag, Phos. Ongoing assessment. 08/15/18 22:30 Given elvated D-Dimer, will Check CTA. Tenderness remains over Hips R>L, XRay did not reveal fx on my read however given inability to ambulate and increased tenderness will check CT Pelvis noncon to r/o fx. 08/16/18 02:29 Chest CTA: Right upper lobe airspace consolidation suggests pneumonia. No pulmonary embolism. Right thyroid cyst Given SOB, Will treat with Azithromycin 500mg, Ceftriaxone 1gm. Will microblog symphony for admission give PNA and inability to ambulate. 08/16/18 03:[address]: No hip fracture. Fibroid uterus 08/16/18 03:39 Sign out given to OSBALDO Birmingham <Fide Birmingham - Last Filed: 08/16/18 03:39> *DC/Admit/Observation/Transfer - Discharge Dispostion Decision to Admit order: Yes <Fide Birmingham - Last Filed: 08/16/18 03:39> - Discharge Dispostion Decision to Admit order: Yes <Mirta Adams - Last Filed: 08/16/18 09:29> Diagnosis at time of Disposition: Hip pain, bilateral, Unable to ambulate CAP (community acquired pneumonia) Qualifiers: Laterality: right Lung location: upper lobe of lung Qualified Code(s): J18.1 - Lobar pneumonia, unspecified organism - Discharge Dispostion Condition at time of disposition: Fair
[2018-08-15] MEDS ORDERED: ACETAMINOPHEN 325 MG TABLET (FP) ONE (22:01)
[2018-08-15 22:32] LABS: BASO % 1.1 % (0-2.0); EOS % 0.5 % (0-4.5); HEMATOCRIT 40.4 % (32.4-45.2); HEMOGLOBIN 13.1 GM/dL (10.7-15.3); LYMPH % 14.8 % (8-40); MCH 27.5 pg (25.7-33.7); MCHC 32.3 g/dl (32.0-36.0); MEAN CELL VOLUME 85.1 fl (80-96); MEAN PLT VOLUME 8.7 fl (7.5-11.1); NEUT % 75.6 % (42.8-82.8); PLATELET COUNT 184 K/MM3 (134-434); RBC 4.75 M/mm3 (3.60-5.2); RDW 16.3 % (11.6-15.6); WHITE BLOOD COUNT 9.9 K/mm3 (4.0-10.0)
[2018-08-15 23:07] LABS: ALBUMIN 3.5 g/dl (3.4-5.0); BILIRUBIN,TOTAL 0.4 mg/dL (0.2-1); BLOOD UREA NITROGEN 11.9 mg/dL (7-18); CALCIUM 9.1 mg/dL (8.5-10.1); CREATININE 0.9 mg/dL (0.55-1.3); PHOSPHOROUS 2.3 mg/dL (2.5-4.9); POTASSIUM 3.8 mmol/L (3.5-5.1); TOT PROT 7.4 g/dl (6.4-8.2)
[2018-08-16] MEDS ORDERED: CEFTRIAXONE 1 GM in DEXTROSE 5%-WATER - 50 ML IVPB ONE (02:38)
[2018-08-16] MEDS ORDERED: AZITHROMYCIN IVPB 500 MG in DEXTROSE 5%-WATER - 250 ML IVPB ONE (02:39)
[2018-08-16] MEDS ORDERED: AZITHROMYCIN IVPB 500 MG/250 ML BAG IVPB ONE (02:44)
[2018-08-16] MEDS ORDERED: CEFTRIAXONE 1 GM/50 ML BAG ONE (02:44)
--- NOTE | 2018-08-16 03:01 | PDOC ---
*Physical Exam - Vital Signs Last Vital Signs Temp Pulse Resp BP Pulse Ox 98.4 F 96 H 18 167/69 100 08/15/18 19:15 08/15/18 19:15 08/15/18 19:15 08/15/18 19:15 08/15/18 19:15 ED Treatment Course - LABORATORY CBC & Chemistry Diagram: 08/15/18 22:15 08/15/18 22:15 - ADDITIONAL ORDERS Additional order review: Laboratory Results 08/15/18 08/15/18 22:15 22:15 D-Dimer 1510 H Sodium 140 Potassium 3.8 Chloride 102 Carbon Dioxide 31 Anion Gap 7 L BUN 11.9 Creatinine 0.9 Est GFR (CKD-EPI)AfAm 68.05 Est GFR (CKD-EPI)NonAf 58.71 Random Glucose 117 H Calcium 9.1 Phosphorus 2.3 L Magnesium 2.0 Total Bilirubin 0.4 AST 28 ALT 15 Alkaline Phosphatase 107 Total Protein 7.4 Albumin 3.5 08/15/18 22:15 RBC 4.75 MCV 85.1 MCHC 32.3 RDW 16.3 H MPV 8.7 Neutrophils % 75.6 Lymphocytes % 14.8 D Monocytes % 8.0 D Eosinophils % 0.5 Basophils % 1.1 D - Medications Given in the ED: ED Medications Discontinued Medications Generic Name Dose Route Start Last Admin Trade Name Cristal PRN Reason Stop Dose Admin Acetaminophen 975 mg 08/15/18 19:46 08/15/18 20:46 Tylenol - PO 08/15/18 19:47 975 mg ONCE ONE Administration Medical Decision Making - Medical Decision Making 08/16/18 03:00 Received pt on signout from Dr. Adams. Patient Name: MADELEINE MCDONOUGH THIS IS A PRELIMINARY REPORT FROM [facility] DATE OF SERVICE: 2018-08-16 01:22:39 IMAGES: [id number] EXAM: CT PELVIS CT WITHOUT CONTRAST HISTORY: Concern for hip fracture COMPARISON: None. FINDINGS: The uterus is a complex lobulated appearance with coarse calcification suggesting degenerated fibroids. Rectum is normal. Bladder is normal. There is diverticulosis. Skeletal pelvic ring is normal. Proximal femurs appear normal with no fracture or dislocation IMPRESSION: No hip fracture. Fibroid uterus Patient Name: MADELEINE MCDONOUGH THIS IS A PRELIMINARY REPORT FROM [facility] DATE OF SERVICE: 2018-08-16 01:26:08 IMAGES: [id number] EXAM: CTA CHEST CTA HISTORY: Concern for pulmonary embolism COMPARISON: None. FINDINGS: Heart:: Normal Pericardium: not thickened Thoracic aorta and great vessels: Normal Superior vena cava and inferior vena cava: Normal Pulmonary arteries: Normal Thoracic esophagus: There is a small hiatal hernia Mediastinal lymph nodes: Normal There is a 2.5 cm right thyroid cyst Central airways: Normal Lungs: [place] there is focal airspace consolidation in the right upper lobe Pleural spaces: Normal with no pneumothorax or pleural fluid Chest wall: Normal Superior abdomen: Normal IMPRESSION: Right upper lobe airspace consolidation suggests pneumonia. No pulmonary embolism. Right thyroid cyst *DC/Admit/Observation/Transfer Diagnosis at time of Disposition: CAP (community acquired pneumonia) Qualifiers: Laterality: right Lung location: upper lobe of lung Qualified Code(s): J18.1 - Lobar pneumonia, unspecified organism - Referrals - Patient Instructions - Post Discharge Activity
--- NOTE | 2018-08-16 03:09 | PDOC ---
Attending Attestation - Resident Resident Name: Fide Birmingham - ED Attending Attestation I have performed the following: I have examined & evaluated the patient, The case was reviewed & discussed with the resident, I agree w/resident's findings & plan - HPI HPI: 08/16/18 03:04 83 year old woman with a past medical history of morbid obesity, HLD, HTN, diabetes, CHF, pulmonary embolism, colon cancer presenting with leg pains Since 03/2018 her fall at that time, s/p Right knee minimally displaced tibial plateau fracture Today with Weakness, slipped out of bed today and landed on left hip, with known chronic right hip/knee pain. Could not get up after fall, home health aid called EMS also endorses SOB, but no cough or congestion 08/16/18 03:09 - Physicial Exam PE: 08/16/18 03:04 Agree with the resident's HPI and PE as documented in the electronic medical record. NAD, well appearing, EOMI, PERRL,nl conjunctiva, anicteric; neck supple. lungs clear, RRR, no murmur, abdomen soft nontender. Back nontender. limited ROM 2/2 pain, pelvis stable, +right hip TTP. equal and symmetric limb length. no focal neuro deficits. No peripheral edema. normal color for ethnicity, WWP. - Medical Decision Making 08/16/18 03:05 See HPI for details. Prior notes reviewed, including admissions, discharges and consultations. Vital signs reviewed, wnl. laboratory results and imaging reviewed, basic labs and lytes wnl, dimer elevated, given wells score of 3, moderate risk for PE given prior history and unclear etiology of SOB. will need CTA EKG normal sinus rhythm at 98 bpm, no interval abnormalities, wide QRS/ LBBB, ST and T wave segments and morphology normal. Nonspecific T wave abnormalities ED course - CTA chest neg for PE, +upper lobe consolidation/pna. will treat as atypical pna and likely cause of sx. - Xray hips with equal alignment, no acute fx, degenrative changes noted, similar to prior, rotational effect. CT pelvis to eval for occult fx given persistent sx and unable to ambulate. -interventions: IV ceftriaxone and azithro; analgesia. Admit for pna, unable to ambulate 2/2 fall, hip pain and fall risk. Discussed results and management plan with pt and family member at bedside, agree with impression, treatment indications, recommendations and plan. 08/16/18 03:05 08/16/18 03:07 Heart Score/ECG Review #1 ECG reviewed & interpreted by me at: 19:30 General ECG Interpretation: Sinus Rhythm, Normal Rate, Normal Intervals Compared to previous ECG there are: No significant change 08/16/18 03:07 EKG normal sinus rhythm at 98 bpm, no interval abnormalities, wide QRS/ LBBB, ST and T wave segments and morphology normal. Nonspecific T wave abnormalities
[2018-08-16 03:38] LABS: HYALINE CASTS 3 /lpf (0-8); URINE APPEARANCE CLEAR; URINE BACTERIA 5380.1 /hpf (NEGATIVE); URINE BILIRUBIN NEGATIVE (NEGATIVE); URINE COLOR YELLOW; URINE GLUCOSE (UA) NEGATIVE (NEGATIVE); URINE KETONE NEGATIVE (NEGATIVE); URINE LEUK ESTERASE TRACE (NEGATIVE); URINE NITRITE NEGATIVE (NEGATIVE); URINE PROTEIN NEGATIVE (NEGATIVE); URINE RBC 1 /hpf (0-4); URINE UROBILINOGEN 0.2 mg/dL (0.2-1.0); URINE WBC 13 /hpf (0-5)
--- NOTE | 2018-08-16 04:15 | HP ---
Admitting History and Physical - Primary Care Physician PCP: Melina Mac - Admission Chief Complaint: S/P fall Right hip pain, SOB History of Present Illness: 83 year old woman with Pmhx: morbid obesity, HTN, HLD, CHF, h/o pulmonary embolism, DM, colon cancer. Patient on 03/2018 post fall at that time had s/p Right knee minimally displaced tibial plateau fracture - no surgical intervention done at the time. Arrived today at the ER post fall (slipped out of bed) landed on left hip, could not get up after fall, home health aid called EMS. Patient also complain of SOB without cough/congestion History Source: Patient, Medical Record Limitations to Obtaining History: Poor Historian - Past Medical History Cardiovascular: Yes: HTN, Hyperlipdemia Pulmonary: Yes: Pulmonary Embolus, Other (former smoker, morbid obesity, probable ALEJANDRA) Heme/Onc: Yes: Anemia (iron defic 40yrs ago) Endocrine: Yes: Diabetes Mellitus - Past Surgical History Past Surgical History: Yes: - Smoking History Smoking history: Former smoker Have you smoked in the past 12 months: No If you are a former smoker, when did you quit?: 1974 - Alcohol/Substance Use Hx Alcohol Use: Yes (No current use ) History of Substance Use: reports: None - Social History Usual Living Arrangement: Yes: Alone (Leaves alone gets Home health aid) ADL: Support Services (Home Health Aid) History of Recent Travel: No Home Medications - Allergies Allergies/Adverse Reactions: Allergies Allergy/AdvReac Type Severity Reaction Status Date / Time No Known Drug Allergies Allergy Verified 04/14/18 19:07 lactose AdvReac Verified 04/14/18 19:07 - Home Medications Home Medications: Ambulatory Orders Acetaminophen [Tylenol Extra Strength] 500 mg PO Q6H PRN 04/18/16 Apixaban [Eliquis] 5 mg PO BID 04/18/16 Atorvastatin Ca [Lipitor] 10 mg PO HS 04/18/16 Furosemide [Lasix -] 20 mg PO DAILY 04/18/16 Lisinopril [Zestril] 20 mg PO AM 04/18/16 Omeprazole 20 mg PO DAILY 04/18/16 Sitagliptin Phosphate [Januvia] 50 mg PO DAILY 04/18/16 Gabapentin [Neurontin -] 0 mg PO TID 10/30/16 Amlodipine Besylate 5 mg PO DAILY 04/15/18 Calcium 600-Vit D3 800 Caplet 1 tab PO DAILY 04/15/18 Family Disease History - Family Disease History Family Disease History: CA: Sister (unknown type) Review of Systems - Review of Systems Respiratory: reports: SOB Physical Examination Vital Signs: Vital Signs Temperature 98.4 F 08/15/18 19:15 Pulse Rate 100 H 08/16/18 03:55 Respiratory Rate 18 08/16/18 03:55 Blood Pressure 153/75 08/16/18 03:55 O2 Sat by Pulse Oximetry (%) 98 08/16/18 03:55 Respiratory: Yes: Rales, SOB Labs: CBC, BMP 08/15/18 22:15 08/15/18 22:15 Problem List - Problems (1) CAP (community acquired pneumonia) Assessment/Plan: CTA chest neg for PE, +upper lobe consolidation/pna - interventions:continue with IV ceftriaxone and azithromycin ; analgesia PRN - O2 via NC PRN . Code(s): J18.9 - PNEUMONIA, UNSPECIFIED ORGANISM Qualifiers: Laterality: right Lung location: upper lobe of lung Qualified Code(s): J18.1 - Lobar pneumonia, unspecified organism (2) Right leg pain Assessment/Plan: Xray hips with equal alignment, no acute fx, degenrative changes noted, similar to prior, rotational effect. CT pelvis to eval for occult fx given persistent sx and unable to ambulate. -Safety/fall precaution - pain management Code(s): M79.604 - PAIN IN RIGHT LEG (3) Frequent falls Assessment/Plan: Frequent falls - safety/fall precaution Code(s): R29.6 - REPEATED FALLS (4) Diabetes Code(s): E11.9 - TYPE 2 DIABETES MELLITUS WITHOUT COMPLICATIONS (5) Hypertension Code(s): I10 - ESSENTIAL (PRIMARY) HYPERTENSION (6) Morbid obesity Code(s): E66.01 - MORBID (SEVERE) OBESITY DUE TO EXCESS CALORIES Assessment/Plan 83 year old female admitted for Pneumonia, unable to ambulate 2/2 fall, Right hip pain - Continue with IV ceftriaxone and Azithromycin - Continue with Tylenol as needed - Safety/fall precaution Visit type - Emergency Visit Emergency Visit: Yes ED Registration Date: 08/16/18 Care time: The patient presented to the Emergency Department on the above date and was hospitalized for further evaluation of their emergent condition. - New Patient This patient is new to me today: Yes Date on this admission: 08/16/18 - Critical Care Critical Care patient: No
[2018-08-16] MEDS: GABAPENTIN 100 MG CAPSULE (FP) PO SCH ×3 (06:19→21:32)
[2018-08-16] MEDS: ACETAMINOPHEN 500 MG TABLET (FP) PO PRN ×2 (06:35→16:42)
[2018-08-16] MEDS: sitaGLIPtin PHOSPHATE 50 MG TABLET PO SCH (07:02)
[2018-08-16] MEDS ORDERED: cefTRIAXone SODIUM 1 GM VIAL ONE (10:37)
[2018-08-16] MEDS ORDERED: DEXTROSE 5%-WATER 100 ML IVPB ONE (10:37)
[2018-08-16] MEDS: APIXABAN 5 MG TABLET PO SCH ×2 (10:39→21:32)
[2018-08-16] MEDS: LISINOPRIL 20 MG TABLET (FP) PO SCH (10:39)
[2018-08-16] MEDS: FUROSEMIDE 20 MG TABLET (FP) PO SCH (10:39)
[2018-08-16] MEDS: CALCIUM 500MG/VIT-D 200 UNITS COMBO TABLET (FP) PO SCH (10:39)
[2018-08-16] MEDS: CEFTRIAXONE 1 GM in DEXTROSE 5%-WATER 100 ML IVPB SCH (10:39)
[2018-08-16] MEDS: amLODIPine BESYLATE 5 MG TABLET (FP) PO SCH (10:39)
[2018-08-16] MEDS: PANTOPRAZOLE 20 MG TABLET (FP) PO SCH (10:39)
--- NOTE | 2018-08-16 19:10 | PN ---
Progress Note, Physician Chief Complaint: Fall History of Present Illness: Previous notes and events reviewed awake and alert NAD febrile BC ordered CXR results pending - Current Medication List Current Medications: Active Medications Acetaminophen (Tylenol -) 500 mg PO Q6H PRN PRN Reason: PAIN Last Admin: 08/16/18 16:42 Dose: 500 mg Amlodipine Besylate (Norvasc -) 5 mg PO DAILY [facility] Last Admin: 08/16/18 10:39 Dose: 5 mg Apixaban (Eliquis -) 5 mg PO BID [facility] Last Admin: 08/16/18 10:39 Dose: 5 mg Atorvastatin Calcium (Lipitor -) 10 mg PO HS [facility] Calcium Carbonate/Cholecalciferol (Os-Aroldo 500+D -) 1 tab PO DAILY [facility] Last Admin: 08/16/18 10:39 Dose: 1 tab Furosemide (Lasix -) 20 mg PO DAILY [facility] Last Admin: 08/16/18 10:39 Dose: 20 mg Gabapentin (Neurontin -) 100 mg PO TID [facility] Last Admin: 08/16/18 13:59 Dose: 100 mg Ceftriaxone Sodium 1 gm/ (Dextrose) 100 mls @ 200 mls/hr IVPB DAILY [facility]; Protocol Stop: 08/22/18 05:21 Last Admin: 08/16/18 10:39 Dose: 200 mls/hr Lisinopril (Prinivil) 20 mg PO DAILY [facility] Last Admin: 08/16/18 10:39 Dose: 20 mg Pantoprazole Sodium (Protonix -) 20 mg PO DAILY [facility] Last Admin: 08/16/18 10:39 Dose: 20 mg Sitagliptin Phosphate (Januvia -) 50 mg PO DAILY@0700 [facility] Last Admin: 08/16/18 07:02 Dose: 50 mg - Objective Vital Signs: Vital Signs Temperature 101.3 F H 08/16/18 18:21 Pulse Rate 89 08/16/18 17:00 Respiratory Rate 20 08/16/18 17:00 Blood Pressure 134/50 L 08/16/18 17:00 O2 Sat by Pulse Oximetry (%) 95 08/16/18 16:00 Constitutional: Yes: No Distress, Calm Eyes: Yes: Conjunctiva Clear HENT: Yes: Atraumatic Cardiovascular: Yes: Regular Rate and Rhythm Respiratory: Yes: Regular, Diminished, On Nasal O2 Gastrointestinal: Yes: Normal Bowel Sounds, Soft, Abdomen, Obese Musculoskeletal: Yes: Muscle Weakness Extremities: Yes: WNL Edema: No Neurological: Yes: Alert, Oriented Psychiatric: Yes: Alert, Oriented Labs: CBC, BMP 08/15/18 22:15 08/15/18 22:15 Problem List - Problems (1) CAP (community acquired pneumonia) Assessment/Plan: -CXR pending -BC -ID consult -Ceftriaxone -tylenol PRN for temp >100F -pending Chest CTA -bronchodilators -Pulm consult -keep SpO2 >90% -O2 via NC Code(s): J18.9 - PNEUMONIA, UNSPECIFIED ORGANISM Qualifiers: Laterality: right Lung location: upper lobe of lung Qualified Code(s): J18.1 - Lobar pneumonia, unspecified organism (2) Hip pain, bilateral Assessment/Plan: -tylenol PRN -Pelvic CT and xray results pending Code(s): M25.551 - PAIN IN RIGHT HIP; M25.552 - PAIN IN LEFT HIP (3) Frequent falls Assessment/Plan: -PT -fall precautions Code(s): R29.6 - REPEATED FALLS (4) Diabetes Assessment/Plan: -BG ACHS -ISS -Sitagliptan -HgA1c Code(s): E11.9 - TYPE 2 DIABETES MELLITUS WITHOUT COMPLICATIONS (5) Hypertension Assessment/Plan: -Lisinopril Code(s): I10 - ESSENTIAL (PRIMARY) HYPERTENSION (6) Morbid obesity Assessment/Plan: -dietary consult Code(s): E66.01 - MORBID (SEVERE) OBESITY DUE TO EXCESS CALORIES (7) Hx pulmonary embolism Assessment/Plan: -Eliquis Code(s): Z86.711 - PERSONAL HISTORY OF PULMONARY EMBOLISM Assessment/Plan see problem list dvt ppx
[2018-08-16] MEDS ORDERED: ACETAMINOPHEN 325 MG TABLET (FP) PO PRN (20:09)
[2018-08-16] MEDS ORDERED: ALBUTEROL SO4 0.083% IH SOL 2.5 MG/3 ML VIAL.NEB. NEB PRN (20:10)
[2018-08-16] MEDS: ATORVASTATIN CA 10 MG TABLET (FP) PO SCH (21:32)
[2018-08-16] MEDS: INSULIN SLIDING SCALE (NOVOLOG) 1 VIAL SQ SCH (21:36)
[2018-08-17] MEDS ORDERED: PT OWN MED DRAWER 7, Y5N ONE (05:33)
[2018-08-17] MEDS: sitaGLIPtin PHOSPHATE 50 MG TABLET PO SCH (06:37)
[2018-08-17] MEDS: GABAPENTIN 100 MG CAPSULE (FP) PO SCH ×3 (06:37→22:19)
[2018-08-17] MEDS: INSULIN SLIDING SCALE (NOVOLOG) 1 VIAL SQ SCH ×4 (07:14→22:19)
--- NOTE | 2018-08-17 07:29 | PN ---
Progress Note, Physician Chief Complaint: S/P FALL AT CARE HOME AWAKE ALERT C/O PAIN RIGHT LOWER EXTREMITY STATES SHE HAS BEEN NON-AMBULATORY FOR SEVERAL [facility] RESIDENT AT [facility] - Current Medication List Current Medications: Active Medications Acetaminophen (Tylenol -) 500 mg PO Q6H PRN PRN Reason: PAIN Last Admin: 08/16/18 16:42 Dose: 500 mg Acetaminophen (Tylenol -) 650 mg PO Q6H PRN PRN Reason: FEVER Albuterol Sulfate (Ventolin 0.083% Nebulizer Soln -) 1 amp NEB Q6H PRN PRN Reason: SHORT OF BREATH/WHEEZING Amlodipine Besylate (Norvasc -) 5 mg PO DAILY [facility] Last Admin: 08/16/18 10:39 Dose: 5 mg Apixaban (Eliquis -) 5 mg PO BID [facility] Last Admin: 08/16/18 21:32 Dose: 5 mg Atorvastatin Calcium (Lipitor -) 10 mg PO HS [facility] Last Admin: 08/16/18 21:32 Dose: 10 mg Calcium Carbonate/Cholecalciferol (Os-Aroldo 500+D -) 1 tab PO DAILY [facility] Last Admin: 08/16/18 10:39 Dose: 1 tab Furosemide (Lasix -) 20 mg PO DAILY [facility] Last Admin: 08/16/18 10:39 Dose: 20 mg Gabapentin (Neurontin -) 100 mg PO TID [facility] Last Admin: 08/17/18 06:37 Dose: 100 mg Ceftriaxone Sodium 1 gm/ (Dextrose) 100 mls @ 200 mls/hr IVPB DAILY [facility]; Protocol Stop: 08/22/18 05:21 Last Admin: 08/16/18 10:39 Dose: 200 mls/hr Insulin Aspart (Novolog Vial Sliding Scale -) 1 vial SQ ACHS [facility]; Protocol Last Admin: 08/17/18 07:14 Dose: Not Given Lisinopril (Prinivil) 20 mg PO DAILY [facility] Last Admin: 08/16/18 10:39 Dose: 20 mg Pantoprazole Sodium (Protonix -) 20 mg PO DAILY [facility] Last Admin: 08/16/18 10:39 Dose: 20 mg Sitagliptin Phosphate (Januvia -) 50 mg PO DAILY@0700 [facility] Last Admin: 08/17/18 06:37 Dose: 50 mg - Objective Vital Signs: Vital Signs Temperature 99.5 F 08/17/18 06:51 Pulse Rate 93 H 08/17/18 06:51 Respiratory Rate 20 08/17/18 06:51 Blood Pressure 117/50 L 08/17/18 06:51 O2 Sat by Pulse Oximetry (%) 93 L 08/17/18 04:00 Constitutional: Yes: Mild Distress Eyes: Yes: WNL HENT: Yes: WNL Neck: Yes: WNL Cardiovascular: Yes: Regular Rate and Rhythm Respiratory: Yes: Diminished, On Nasal O2 Gastrointestinal: Yes: Soft, Abdomen, Obese Genitourinary: Yes: Incontinence Musculoskeletal: Yes: Muscle Pain, Muscle Weakness Edema: No Peripheral Pulses WNL: Yes Integumentary: Yes: Other Wound/Incision: Yes: Dressing Dry and Intact Neurological: Yes: Loss of Sensation, Weakness ...Motor Strength: LLE, RLE Psychiatric: Yes: WNL Labs: CBC, BMP 08/15/18 22:15 08/15/18 22:15 Problem List - Problems (1) CAP (community acquired pneumonia) Code(s): J18.9 - PNEUMONIA, UNSPECIFIED ORGANISM Qualifiers: Laterality: right Lung location: upper lobe of lung Qualified Code(s): J18.1 - Lobar pneumonia, unspecified organism (2) Hip pain, bilateral Code(s): M25.551 - PAIN IN RIGHT HIP; M25.552 - PAIN IN LEFT HIP (3) Hx pulmonary embolism Code(s): Z86.711 - PERSONAL HISTORY OF PULMONARY EMBOLISM (4) Unable to ambulate Code(s): R26.2 - DIFFICULTY IN WALKING, NOT ELSEWHERE CLASSIFIED (5) Acute bilateral knee pain Code(s): M25.561 - PAIN IN RIGHT KNEE; M25.562 - PAIN IN LEFT KNEE (6) Frequent falls Code(s): R29.6 - REPEATED FALLS (7) Diabetes Code(s): E11.9 - TYPE 2 DIABETES MELLITUS WITHOUT COMPLICATIONS (8) Hypertension Code(s): I10 - ESSENTIAL (PRIMARY) HYPERTENSION (9) Morbid obesity Code(s): E66.01 - MORBID (SEVERE) OBESITY DUE TO EXCESS CALORIES Assessment/Plan ON ABX FOR PNEUMONIA ALSO HAS UTI CHECK CULTURES ID CONSULT PT EVAL PAIN CONTROL ON ELIQUIS AC FOR H/O PE PT EVAL ORTHOPEDICS EVAL LIDOCAINE PATCH TO RIGHT HIP/LOWER EXTREMITY
[2018-08-17 08:16] LABS: HEMATOCRIT 34.3 % (32.4-45.2); HEMOGLOBIN 11.1 GM/dL (10.7-15.3); MCH 27.4 pg (25.7-33.7); MCHC 32.5 g/dl (32.0-36.0); MEAN CELL VOLUME 84.2 fl (80-96); MEAN PLT VOLUME 8.8 fl (7.5-11.1); PLATELET COUNT 171 K/MM3 (134-434); RBC 4.07 M/mm3 (3.60-5.2); RDW 15.9 % (11.6-15.6); WHITE BLOOD COUNT 6.8 K/mm3 (4.0-10.0)
[2018-08-17 08:40] LABS: ALBUMIN 2.8 g/dl (3.4-5.0); BILIRUBIN,TOTAL 0.3 mg/dL (0.2-1); BLOOD UREA NITROGEN 14.8 mg/dL (7-18); CALCIUM 8.5 mg/dL (8.5-10.1); POTASSIUM 3.3 mmol/L (3.5-5.1)
[2018-08-17] MEDS ORDERED: DEXTROSE 5%-WATER 100 ML IVPB ONE (09:37)
[2018-08-17] MEDS ORDERED: cefTRIAXone SODIUM 1 GM VIAL ONE (09:37)
[2018-08-17] MEDS: LISINOPRIL 20 MG TABLET (FP) PO SCH (09:48)
[2018-08-17] MEDS: LIDOCAINE 5% TOPICAL PATCH TP SCH (09:48)
[2018-08-17] MEDS: APIXABAN 5 MG TABLET PO SCH ×2 (09:48→22:18)
[2018-08-17] MEDS: CALCIUM 500MG/VIT-D 200 UNITS COMBO TABLET (FP) PO SCH (09:48)
[2018-08-17] MEDS: FUROSEMIDE 20 MG TABLET (FP) PO SCH (09:48)
[2018-08-17] MEDS: CEFTRIAXONE 1 GM in DEXTROSE 5%-WATER 100 ML IVPB SCH (09:48)
[2018-08-17] MEDS: PANTOPRAZOLE 20 MG TABLET (FP) PO SCH (09:48)
[2018-08-17] MEDS: amLODIPine BESYLATE 5 MG TABLET (FP) PO SCH (09:48)
--- NOTE | 2018-08-17 11:19 | CONSULT ---
Consult - text type - Consultation Consultation Note: ORTHOPEDIC SURGERY CONSULTATION NOTE Department of Orthopedic Surgery HISTORY OF PRESENT ILLNESS Ms. Us is a 83 year old female from [facility] with Pmhx: morbid obesity, HTN, HLD, CHF, h/o pulmonary embolism, DM, colon cancer. Patient on 03/2018 post fall at that time had s/p right knee minimally displaced tibial plateau fracture - no surgical intervention done at the time, who presents to [facility] after a fall. The orthopedic service was consulted for bilateral knee pain. The injury occurred at home. The patient notes pain in bilateral knees R>L, which improves with rest, and worsens with movement. Denies any other injuries. Denies numbness, tingling or other constitutional complaints. The patient lives at home alone and has an aide. Denies tobacco use , drug use, alcohol abuse. The patient uses a walker for assistive devices at baseline. FAMILY HISTORY non-contributory REVIEW OF SYMPTOMS A twelve-point review of systems was performed and was negative except as noted in HPI. PHYSICAL EXAM Constitutional: Alert and oriented to person, place, and time. No acute distress , appropriate mood and affect. Right Upper Extremity: Skin warm, dry, and intact; no lesions, rashes or ulcers noted. Muscle mass equal and symmetric to contralateral side. No atrophy noted. No masses or effusions noted. No tenderness to palpation all joints; nontender throughout rest of extremity. Full passive and active ROM, free from pain. Joints stable with no pathologic laxity. M/R/U/MSK/AX motor intact; SILT distally; 2+ radial pulses; Cap refill brisk. Tone and reflexes normal. Left Upper Extremity: Skin warm, dry, and intact; no lesions, rashes or ulcers noted. Muscle mass equal and symmetric to contralateral side. No atrophy noted. No masses or effusions noted. No tenderness to palpation all joints; nontender throughout rest of extremity. Full passive and active ROM, free from pain. Joints stable with no pathologic laxity. M/R/U/MSK/AX motor intact; SILT distally; 2+ radial pulses; Cap refill brisk. Tone and reflexes normal. Right Lower Extremity: Skin warm, dry, and intact; no lesions, rashes or ulcers noted. No signs of septic joints; Muscle mass equal and symmetric to contralateral side. No atrophy noted. No masses or effusions noted. Tender to palpation at the level of the knee and calf; nontender throughout rest of extremity. No cords. Negative Log Roll; Patient able to SLR with no pain in the hip. No significant calf/ankle edema. Full passive and active ROM 0-90, free from pain of the knee, discomfort with more than 90 degrees of flexion. Joints stable with no pathologic laxity. EHL/TA/GS motor intact; SILT distally; 2+ DP pulses; Cap refill brisk. Tone and reflexes normal. Left Lower Extremity: Skin warm, dry, and intact; no lesions, rashes or ulcers noted. No signs of septic joints; Muscle mass equal and symmetric to contralateral side. No atrophy noted. No masses or effusions noted. Tender to palpation at the knee; nontender throughout rest of extremity. No cords or calf tenderness; Negative Log Roll; Patient able to SLR with no pain in the hip. No significant calf/ankle edema. Full passive and active ROM 0-90, free from pain of the knee, discomfort with more than 90 degrees of flexion. Joints stable with no pathologic laxity. EHL/TA/GS motor intact; SILT distally; 2+ DP pulses; Cap refill brisk. Tone and reflexes normal. Active Problems Problem Status Category Onset CAP (community acquired pneumonia) Acute Medical Hip pain, bilateral Acute Medical Hx pulmonary embolism Acute Medical Unable to ambulate Acute Medical Past Medical History Cardio/Vascular HTN,Hyperlipdemia Pulmonary Pulmonary Embolus,Other Heme/Onc Anemia Endocrine Diabetes Mellitus Past Surgical History Past Surgical History Social History Smoking history Former smoker If you are a former smoker, 1975 when did you quit? Hx Alcohol Use Yes: No current use History of Substance Use None Usual Living Arrangement Assisted Living ADL Support Services History of Recent Travel No Allergies Allergy/AdvReac Type Severity Reaction Status Date / Time No Known Drug Allergies Allergy Verified 04/14/18 19:07 lactose AdvReac Verified 04/14/18 19:07 Active Medications Generic Name Dose Route Start Last Admin Trade Name Freq PRN Reason Stop Dose Admin Acetaminophen 500 mg 08/16/18 05:13 08/16/18 16:42 Tylenol - PO 500 mg Q6H PRN Administration PAIN Acetaminophen 650 mg 08/16/18 20:09 Tylenol - PO Q6H PRN FEVER Albuterol Sulfate 1 amp 08/16/18 20:10 Ventolin 0.083% Nebulizer Soln - NEB Q6H PRN SHORT OF BREATH/WHEEZING Amlodipine Besylate 5 mg 08/16/18 10:00 08/17/18 09:48 Norvasc - PO 5 mg DAILY [facility] Administration Apixaban 5 mg 08/16/18 10:00 08/17/18 09:48 Eliquis - PO 5 mg BID [facility] Administration Atorvastatin Calcium 10 mg 08/16/18 22:00 08/16/18 21:32 Lipitor - PO 10 mg HS [facility] Administration Calcium Carbonate/Cholecalciferol 1 tab 08/16/18 10:00 08/17/18 09:48 Os-Aroldo 500+D - PO 1 tab DAILY [facility] Administration Furosemide 20 mg 08/16/18 10:00 08/17/18 09:48 Lasix - PO 20 mg DAILY [facility] Administration Gabapentin 100 mg 08/16/18 06:00 08/17/18 06:37 Neurontin - PO 100 mg TID [facility] Administration Ceftriaxone Sodium 1 gm/ 100 mls @ 200 mls/hr 08/16/18 10:00 08/17/18 09:48 Dextrose IVPB 08/22/18 05:21 200 mls/hr DAILY [facility] Administration Protocol Insulin Aspart 1 vial 08/16/18 22:00 08/17/18 07:14 Novolog Vial Sliding Scale - SQ Not Given ACHS [facility] Protocol Lidocaine 1 patch 08/17/18 10:00 08/17/18 09:48 Lidoderm Patch - TP 1 patch DAILY [facility] Administration Lisinopril 20 mg 08/16/18 10:00 08/17/18 09:48 Prinivil PO 20 mg DAILY [facility] Administration Miscellaneous 1 each 08/17/18 22:00 Lidoderm Patch Removal MC DAILY@2200 [facility] Pantoprazole Sodium 20 mg 08/16/18 10:00 08/17/18 09:48 Protonix - PO 20 mg DAILY [facility] Administration Sitagliptin Phosphate 50 mg 08/16/18 07:00 08/17/18 06:37 Januvia - PO 50 mg DAILY@0700 [facility] Administration Vital Signs (last) Temp Pulse Resp BP Pulse Ox 99.5 F 93 H 20 117/50 L 93 L 08/17/18 06:51 08/17/18 06:51 08/17/18 06:51 08/17/18 06:51 08/17/18 04:00 Intake and Output 08/15/18 08/16/18 08/17/18 23:59 23:59 23:59 Intake Total 0 0 Balance 0 0 Intake: IV 0 0 left antecubital 0 0 Other: Voiding Method Incontinent Bedpan # Unmeasured Voids Void 1 1 Bowel Movement No Weight 257 lb 240 lb 12.8 oz 239 lb 3 oz Height 5 ft 2 in 5 ft 2 in Body Mass Index (BMI) 47.0 44.0 Weight Measurement Method Est/Stated by Patient Laboratory 08/17/18 07:30 08/17/18 07:30 IMAGING I personally reviewed all radiographs, CT, and other imaging of the pelvis and hips. They demonstrate no fractures or dislocations. ASSESSMENT AND PLAN Ms. Us is a 83 year old female presenting status post multiple falls, with history of right tibial plateau fracture in Mar 2018, with bilateral knee pain. We have reviewed the imaging and clinical findings in detail, as well as their potential implications. After appropriate informed discussion, we agreed on the following plan: Pain Control DVT prophylaxis (Chemo prophylaxis and SCDs) Will order Bilateral Knee X-rays to evaluate for fracture versus OA Rest/Ice/Elevate bilateral knees NWB Continue medical management Will follow All questions were answered. Thank you for involving our team in the care of this patient. We will follow the patient with you. Please call us at with questions.
--- NOTE | 2018-08-17 11:21 | CON.PULM ---
Consult Consult Specialty:: PULM/CCM Referred by:: YASHIRA Reason for Consultation:: PNA - History of Present Illness Chief Complaint: S/P Fall History of Present Illness: 83 F, morbid obesity, HTN, HLD, CHF, h/o pulmonary embolism on Eliquis, DM, and colon cancer. Admitted via the ER due to S/P Fall and sustained a Right knee minimally displaced tibial plateau fracture. It was deemed that no surgical intervention was needed. Apparently she slipped and fell OOB onto her left hip and could not get up. CTA: no PE / RUL consolidation with air bronchograms / mildly enlarged mediastinal lymph nodes She does report some recent SOB but denies sputum production, fever, chills, or hemoptysis. - History Source History Provided By: Patient Limitations to Obtaining History: Poor Historian - Past Medical History Cardio/Vascular: Yes: HTN, Hyperlipdemia Pulmonary: Yes: Pulmonary Embolus, Other (former smoker, morbid obesity, probable ALEJANDRA). No: Asthma, COPD, O2 Dependent, Pneumonia, Previously Intubated , Sleep Apnea ...: No Endocrine: Yes: Diabetes Mellitus - Past Surgical History Past Surgical History: Yes: - Alcohol/Substance Use Hx Alcohol Use: Yes (No current use ) History of Substance Use: reports: None - Smoking History Smoking history: Former smoker Have you smoked in the past 12 months: No If you are a former smoker, when did you quit?: 1974 - Social History Usual Living Arrangement: Assisted Living ADL: Support Services (Home Health Aid) History of Recent Travel: No Home Medications - Allergies Allergies/Adverse Reactions: Allergies Allergy/AdvReac Type Severity Reaction Status Date / Time No Known Drug Allergies Allergy Verified 04/14/18 19:07 lactose AdvReac Verified 04/14/18 19:07 - Home Medications Home Medications: Ambulatory Orders Acetaminophen [Tylenol Extra Strength] 500 mg PO Q6H PRN 04/18/16 Apixaban [Eliquis] 5 mg PO BID 04/18/16 Atorvastatin Ca [Lipitor] 10 mg PO HS 04/18/16 Furosemide [Lasix -] 20 mg PO DAILY 04/18/16 Lisinopril [Zestril] 20 mg PO AM 04/18/16 Omeprazole 20 mg PO DAILY 04/18/16 Sitagliptin Phosphate [Januvia] 50 mg PO DAILY 04/18/16 Gabapentin [Neurontin -] 100 mg PO TID 10/30/16 Amlodipine Besylate 5 mg PO DAILY 04/15/18 Calcium Carbonate/Vitamin D3 [Calcium 600 + Vit D Tablet] 1 each PO DAILY Family Disease History - Family Disease History Family Disease History: CA: Sister (unknown type) Review of Systems - Review of Systems Constitutional: reports: Malaise. denies: Chills, Fever, Night Sweats Eyes: reports: No Symptoms HENT: reports: No Symptoms Neck: reports: No Symptoms Cardiovascular: reports: Shortness of Breath. denies: Chest Pain, Edema, Palpitations Respiratory: reports: Cough, Snoring, SOB, SOB on Exertion. denies: Hemoptysis , Orthopnea, PND, Wheezing Gastrointestinal: reports: No Symptoms Genitourinary: reports: No Symptoms Breasts: reports: No Symptoms Reported Musculoskeletal: reports: Back Pain, Decreased ROM, Extremity Pain, Joint Pain, Muscle Pain, Muscle Cramps Integumentary: reports: No Symptoms Neurological: reports: No Symptoms Endocrine: reports: No Symptoms Hematology/Lymphatic: reports: No Symptoms Psychiatric: reports: No Symptoms Physical Exam Vital Sings: Vital Signs Temperature 99.5 F 08/17/18 06:51 Pulse Rate 93 H 08/17/18 06:51 Respiratory Rate 20 08/17/18 06:51 Blood Pressure 117/50 L 08/17/18 06:51 O2 Sat by Pulse Oximetry (%) 93 L 08/17/18 04:00 Constitutional: Yes: No Distress, Calm, Obese Eyes: Yes: Conjunctiva Clear, EOM Intact HENT: Yes: Atraumatic, Normocephalic Neck: Yes: Supple, Trachea Midline Cardiovascular: Yes: Regular Rate and Rhythm Respiratory: Yes: Diminished. No: Accessory Muscle Use, Rales, Rhonchi, SOB, SOB on Exertion, Stridor, Tachypnea, Wheezes ...Inspection: Yes: WNL Gastrointestinal: Yes: Normal Bowel Sounds, Soft, Abdomen, Obese Renal/: Yes: WNL Musculoskeletal: Yes: WNL Extremities: Yes: WNL Edema: No Peripheral Pulses WNL: Yes Integumentary: Yes: WNL Neurological: Yes: WNL, Alert, Oriented ...Motor Strength: WNL Psychiatric: Yes: WNL, Alert, Oriented Labs: CBC, BMP 08/17/18 07:30 08/17/18 07:30 Imaging - Results Chest X-ray: Report Reviewed Cat Scan: Report Reviewed, Image Reviewed Problem List - Problems (1) Pneumonia Code(s): J18.9 - PNEUMONIA, UNSPECIFIED ORGANISM (2) CAP (community acquired pneumonia) Code(s): J18.9 - PNEUMONIA, UNSPECIFIED ORGANISM Qualifiers: Laterality: right Lung location: upper lobe of lung Qualified Code(s): J18.1 - Lobar pneumonia, unspecified organism (3) Hip pain, bilateral Code(s): M25.551 - PAIN IN RIGHT HIP; M25.552 - PAIN IN LEFT HIP (4) Hx pulmonary embolism Code(s): Z86.711 - PERSONAL HISTORY OF PULMONARY EMBOLISM (5) Frequent falls Code(s): R29.6 - REPEATED FALLS (6) Tibial plateau fracture, right Code(s): S82.141A - DISPLACED BICONDYLAR FRACTURE OF RIGHT TIBIA, INIT (7) Diabetes Code(s): E11.9 - TYPE 2 DIABETES MELLITUS WITHOUT COMPLICATIONS (8) Hypertension Code(s): I10 - ESSENTIAL (PRIMARY) HYPERTENSION (9) Morbid obesity Code(s): E66.01 - MORBID (SEVERE) OBESITY DUE TO EXCESS CALORIES (10) Sleep apnea Code(s): G47.30 - SLEEP APNEA, UNSPECIFIED Assessment/Plan Currently on Rocephin O2 as needed Check urine antigen Noted ID consult was called Eliquis No indication for systemic steroids at this time Aspiration precautions Repeat imaging in 6 to 8 weeks for follow up of the RUL infiltrate and non- specific mediastinal adenopathy Will follow Thank you. Dr Sandoval
[2018-08-17 13:15] VITALS: BMI 43.9
--- NOTE | 2018-08-17 13:39 | PN ---
Progress Note (short form) - Note Progress Note: ID CONSULT DICTATED RUL COMMUNITY ACQUIRED V. ATYPICAL PNEUMONIA UTI S/P FALL PENDING C/S EMPIRIC ZITHROMAX/ CEFTRIAXONE
[2018-08-17] MEDS ORDERED: PIPERACILLIN/TAZOB 3.375 GM 3.375 GM in DEXTROSE 5%-WATER - 50 ML IVPB SCH (13:45)
[2018-08-17] MEDS: AZITHROMYCIN IVPB 500 MG/250 ML BAG IVPB SCH (14:08)
[2018-08-17] MEDS: ACETAMINOPHEN 500 MG TABLET (FP) PO PRN (16:51)
[2018-08-18] MEDS: LIDOCAINE PATCH REMOVAL MC SCH ×2 (00:18→21:54)
[2018-08-18] MEDS: ATORVASTATIN CA 10 MG TABLET (FP) PO SCH ×2 (00:19→21:54)
[2018-08-18] MEDS: GABAPENTIN 100 MG CAPSULE (FP) PO SCH ×3 (06:59→21:54)
[2018-08-18 07:26] LABS: HEMOGLOBIN 10.9 GM/dL (10.7-15.3); MCH 27.1 pg (25.7-33.7); MCHC 31.9 g/dl (32.0-36.0); MEAN CELL VOLUME 84.8 fl (80-96); MEAN PLT VOLUME 8.8 fl (7.5-11.1); PLATELET COUNT 176 K/MM3 (134-434); RBC 4.02 M/mm3 (3.60-5.2); RDW 15.9 % (11.6-15.6); WHITE BLOOD COUNT 6.2 K/mm3 (4.0-10.0)
--- NOTE | 2018-08-18 07:44 | CONSULT ---
Consult - text type - Consultation Consultation Note: I personally reviewed all radiographs, CT, and other imaging of the pelvis and hips and bilateral knees. They demonstrate a healed right tibial plateau fracture, moderate to advanced bilateral knee OA, and no acute fractures or dislocations. ASSESSMENT AND PLAN Ms. Us is a 83 year old female presenting status post multiple falls, with history of right tibial plateau fracture in Mar 2018 now healed, with bilateral knee pain secondary to moderate to advanced OA. We have reviewed the imaging and clinical findings in detail, as well as their potential implications. After appropriate informed discussion, we agreed on the following plan: Pain Control DVT prophylaxis (Chemo prophylaxis and SCDs) Rest/Ice/Elevate bilateral knees WBAT bilateral extremities PT Daily Continue medical management No further orthopedic surgical intervention at this time It was understood this morning that the patient has previously seen Dr. Beverly for her orthopedic care, therefore she can follow up with him as an outpatient. All questions were answered. Thank you for involving our team in the care of this patient. Please call us at [phone] with questions.
--- NOTE | 2018-08-18 07:54 | PN ---
Progress Note, Physician Chief Complaint: ASLEEP NO EVENTS OVERNIGHT - Current Medication List Current Medications: Active Medications Acetaminophen (Tylenol -) 500 mg PO Q6H PRN PRN Reason: PAIN Last Admin: 08/17/18 16:51 Dose: 500 mg Acetaminophen (Tylenol -) 650 mg PO Q6H PRN PRN Reason: FEVER Albuterol Sulfate (Ventolin 0.083% Nebulizer Soln -) 1 amp NEB Q6H PRN PRN Reason: SHORT OF BREATH/WHEEZING Amlodipine Besylate (Norvasc -) 5 mg PO DAILY [facility] Last Admin: 08/17/18 09:48 Dose: 5 mg Apixaban (Eliquis -) 5 mg PO BID [facility] Last Admin: 08/17/18 22:18 Dose: 5 mg Atorvastatin Calcium (Lipitor -) 10 mg PO HS [facility] Last Admin: 08/18/18 00:19 Dose: 10 mg Calcium Carbonate/Cholecalciferol (Os-Aroldo 500+D -) 1 tab PO DAILY [facility] Last Admin: 08/17/18 09:48 Dose: 1 tab Furosemide (Lasix -) 20 mg PO DAILY [facility] Last Admin: 08/17/18 09:48 Dose: 20 mg Gabapentin (Neurontin -) 100 mg PO TID [facility] Last Admin: 08/18/18 06:59 Dose: 100 mg Ceftriaxone Sodium 2 gm/ (Dextrose) 100 mls @ 100 mls/hr IVPB DAILY [facility]; Protocol Azithromycin (Zithromax 500mg Ivpb (Pre-Docked)) 500 mg in 250 mls @ 250 mls/ hr IVPB DAILY [facility] Last Admin: 08/17/18 14:08 Dose: 250 mls/hr Insulin Aspart (Novolog Vial Sliding Scale -) 1 vial SQ ACHS [facility]; Protocol Last Admin: 08/17/18 22:19 Dose: Not Given Lidocaine (Lidoderm Patch -) 1 patch TP DAILY [facility] Last Admin: 08/17/18 09:48 Dose: 1 patch Lisinopril (Prinivil) 20 mg PO DAILY [facility] Last Admin: 08/17/18 09:48 Dose: 20 mg Miscellaneous (Lidoderm Patch Removal) 1 each MC DAILY@2200 [facility] Last Admin: 08/18/18 00:18 Dose: 1 each Pantoprazole Sodium (Protonix -) 20 mg PO DAILY [facility] Last Admin: 06/23/19 09:48 Dose: 20 mg Sitagliptin Phosphate (Januvia -) 50 mg PO DAILY@0700 [facility] Last Admin: 08/17/18 06:37 Dose: 50 mg - Objective Vital Signs: Vital Signs Temperature 98.7 F 08/18/18 06:00 Pulse Rate 75 08/18/18 06:00 Respiratory Rate 20 08/18/18 06:00 Blood Pressure 101/50 L 08/18/18 06:00 O2 Sat by Pulse Oximetry (%) 99 08/17/18 21:00 Constitutional: Yes: No Distress Eyes: Yes: WNL HENT: Yes: WNL Neck: Yes: WNL Cardiovascular: Yes: Regular Rate and Rhythm Respiratory: Yes: Diminished, On Nasal O2 Gastrointestinal: Yes: Abdomen, Obese Genitourinary: Yes: Incontinence Musculoskeletal: Yes: Back Pain, Muscle Pain, Muscle Weakness Extremities: Yes: Other Edema: Yes Integumentary: Yes: WNL Wound/Incision: Yes: Clean/Dry Neurological: Yes: Weakness ...Motor Strength: LLE, RLE Psychiatric: Yes: Other Problem List - Problems (1) CAP (community acquired pneumonia) Code(s): J18.9 - PNEUMONIA, UNSPECIFIED ORGANISM Qualifiers: Laterality: right Lung location: upper lobe of lung Qualified Code(s): J18.1 - Lobar pneumonia, unspecified organism (2) Hip pain, bilateral Code(s): M25.551 - PAIN IN RIGHT HIP; M25.552 - PAIN IN LEFT HIP (3) Hx pulmonary embolism Code(s): Z86.711 - PERSONAL HISTORY OF PULMONARY EMBOLISM (4) Unable to ambulate Code(s): R26.2 - DIFFICULTY IN WALKING, NOT ELSEWHERE CLASSIFIED (5) Acute bilateral knee pain Code(s): M25.561 - PAIN IN RIGHT KNEE; M25.562 - PAIN IN LEFT KNEE (6) Frequent falls Code(s): R29.6 - REPEATED FALLS (7) Diabetes Code(s): E11.9 - TYPE 2 DIABETES MELLITUS WITHOUT COMPLICATIONS (8) Hypertension Code(s): I10 - ESSENTIAL (PRIMARY) HYPERTENSION (9) Morbid obesity Code(s): E66.01 - MORBID (SEVERE) OBESITY DUE TO EXCESS CALORIES Assessment/Plan ON ABX FOR PNEUMONIA ALSO HAS UTI CHECK CULTURES ID CONSULT APPRECIATED PT EVAL PAIN CONTROL ON ELIQUIS AC FOR H/O PE PT EVAL ORTHOPEDICS EVAL APPRECIATED LIDOCAINE PATCH TO RIGHT HIP/LOWER EXTREMITY DC PLANNING TOMORROW
[2018-08-18] MEDS ORDERED: PT OWN MED DRAWER 7, Y5N ONE (08:00)
[2018-08-18] MEDS: sitaGLIPtin PHOSPHATE 50 MG TABLET PO SCH (08:01)
[2018-08-18] MEDS: INSULIN SLIDING SCALE (NOVOLOG) 1 VIAL SQ SCH ×4 (08:05→21:54)
[2018-08-18 08:11] LABS: ALBUMIN 2.7 g/dl (3.4-5.0); BILIRUBIN,TOTAL 0.4 mg/dL (0.2-1); BLOOD UREA NITROGEN 19.6 mg/dL (7-18); CALCIUM 8.5 mg/dL (8.5-10.1); CREATININE 0.9 mg/dL (0.55-1.3); POTASSIUM 3.4 mmol/L (3.5-5.1); TOT PROT 5.9 g/dl (6.4-8.2)
--- NOTE | 2018-08-18 08:52 | PN ---
Progress Note (short form) - Note Progress Note: Resting in NAD. Breathing feels a little better today. Intake & Output 08/15/18 08/16/18 08/17/18 08/18/18 23:59 23:59 23:59 23:59 Intake Total 0 1490 0 Balance 0 1490 0 Weight 257 lb 240 lb 12.8 oz 240 lb 235 lb 14.4 oz Last Vital Signs Temp Pulse Resp BP Pulse Ox 98.7 F 75 20 101/50 L 99 08/18/18 06:00 08/18/18 06:00 08/18/18 06:00 08/18/18 06:00 08/17/18 21:00 Active Medications Acetaminophen (Tylenol -) 500 mg PO Q6H PRN PRN Reason: PAIN Last Admin: 08/17/18 16:51 Dose: 500 mg Acetaminophen (Tylenol -) 650 mg PO Q6H PRN PRN Reason: FEVER Albuterol Sulfate (Ventolin 0.083% Nebulizer Soln -) 1 amp NEB Q6H PRN PRN Reason: SHORT OF BREATH/WHEEZING Amlodipine Besylate (Norvasc -) 5 mg PO DAILY [facility] Last Admin: 08/17/18 09:48 Dose: 5 mg Apixaban (Eliquis -) 5 mg PO BID [facility] Last Admin: 08/17/18 22:18 Dose: 5 mg Atorvastatin Calcium (Lipitor -) 10 mg PO HS [facility] Last Admin: 08/18/18 00:19 Dose: 10 mg Calcium Carbonate/Cholecalciferol (Os-Aroldo 500+D -) 1 tab PO DAILY [facility] Last Admin: 08/17/18 09:48 Dose: 1 tab Furosemide (Lasix -) 20 mg PO DAILY [facility] Last Admin: 08/17/18 09:48 Dose: 20 mg Gabapentin (Neurontin -) 100 mg PO TID [facility] Last Admin: 08/18/18 06:59 Dose: 100 mg Ceftriaxone Sodium 2 gm/ (Dextrose) 100 mls @ 100 mls/hr IVPB DAILY [facility]; Protocol Azithromycin (Zithromax 500mg Ivpb (Pre-Docked)) 500 mg in 250 mls @ 250 mls/ hr IVPB DAILY [facility] Last Admin: 08/17/18 14:08 Dose: 250 mls/hr Insulin Aspart (Novolog Vial Sliding Scale -) 1 vial SQ ACHS [facility]; Protocol Last Admin: 08/18/18 08:05 Dose: Not Given Lidocaine (Lidoderm Patch -) 1 patch TP DAILY [facility] Last Admin: 08/17/18 09:48 Dose: 1 patch Lisinopril (Prinivil) 20 mg PO DAILY [facility] Last Admin: 08/17/18 09:48 Dose: 20 mg Miscellaneous (Lidoderm Patch Removal) 1 each MC DAILY@2200 [facility] Last Admin: 08/18/18 00:18 Dose: 1 each Pantoprazole Sodium (Protonix -) 20 mg PO DAILY [facility] Last Admin: 08/17/18 09:48 Dose: 20 mg Sitagliptin Phosphate (Januvia -) 50 mg PO DAILY@0700 [facility] Last Admin: 08/18/18 08:01 Dose: 50 mg Constitutional: Yes: No Distress, Calm, Obese Eyes: Yes: Conjunctiva Clear, EOM Intact HENT: Yes: Atraumatic, Normocephalic Neck: Yes: Supple, Trachea Midline Cardiovascular: Yes: Regular Rate and Rhythm Respiratory: Yes: Diminished. No: Accessory Muscle Use, Rales, Rhonchi, SOB, SOB on Exertion, Stridor, Tachypnea, Wheezes ...Inspection: Yes: WNL Gastrointestinal: Yes: Normal Bowel Sounds, Soft, Abdomen, Obese Renal/: Yes: WNL Musculoskeletal: Yes: WNL Extremities: Yes: WNL Edema: No Peripheral Pulses WNL: Yes Integumentary: Yes: WNL Neurological: Yes: WNL, Alert, Oriented ...Motor Strength: WNL Psychiatric: Yes: WNL, Alert, Oriented Labs: Laboratory Results - last 24 hr 08/17/18 08/17/18 08/18/18 14:18 17:43 06:34 WBC 6.2 RBC 4.02 Hgb 10.9 Hct 34.0 MCV 84.8 MCH 27.1 MCHC 31.9 L RDW 15.9 H Plt Count 176 MPV 8.8 Sodium Potassium Chloride Carbon Dioxide Anion Gap BUN Creatinine Est GFR (CKD-EPI)AfAm Est GFR (CKD-EPI)NonAf POC Glucometer 153 141 Random Glucose Calcium Total Bilirubin AST ALT Alkaline Phosphatase Total Protein Albumin 08/18/18 08/18/18 06:34 06:56 WBC RBC Hgb Hct MCV MCH MCHC RDW Plt Count MPV Sodium 144 Potassium 3.4 L Chloride 107 Carbon Dioxide 30 Anion Gap 7 L BUN 19.6 H Creatinine 0.9 Est GFR (CKD-EPI)AfAm 68.05 Est GFR (CKD-EPI)NonAf 58.71 POC Glucometer 115 Random Glucose 102 Calcium 8.5 Total Bilirubin 0.4 AST 15 ALT 14 Alkaline Phosphatase 80 Total Protein 5.9 L Albumin 2.7 L Problem List - Problems (1) Pneumonia Code(s): J18.9 - PNEUMONIA, UNSPECIFIED ORGANISM (2) CAP (community acquired pneumonia) Code(s): J18.9 - PNEUMONIA, UNSPECIFIED ORGANISM Qualifiers: Laterality: right Lung location: upper lobe of lung Qualified Code(s): J18.1 - Lobar pneumonia, unspecified organism (3) Hip pain, bilateral Code(s): M25.551 - PAIN IN RIGHT HIP; M25.552 - PAIN IN LEFT HIP (4) Hx pulmonary embolism Code(s): Z86.711 - PERSONAL HISTORY OF PULMONARY EMBOLISM (5) Frequent falls Code(s): R29.6 - REPEATED FALLS (6) Tibial plateau fracture, right Code(s): S82.141A - DISPLACED BICONDYLAR FRACTURE OF RIGHT TIBIA, INIT (7) Diabetes Code(s): E11.9 - TYPE 2 DIABETES MELLITUS WITHOUT COMPLICATIONS (8) Hypertension Code(s): I10 - ESSENTIAL (PRIMARY) HYPERTENSION (9) Morbid obesity Code(s): E66.01 - MORBID (SEVERE) OBESITY DUE TO EXCESS CALORIES (10) Sleep apnea Code(s): G47.30 - SLEEP APNEA, UNSPECIFIED Assessment/Plan ABX per ID Eliquis No indication for systemic steroids at this time Aspiration precautions Repeat imaging in 6 to 8 weeks for follow up of the RUL infiltrate and non- specific mediastinal adenopathy Dr Sandoval Problem List - Problems (1) Pneumonia Code(s): J18.9 - PNEUMONIA, UNSPECIFIED ORGANISM (2) CAP (community acquired pneumonia) Code(s): J18.9 - PNEUMONIA, UNSPECIFIED ORGANISM Qualifiers: Laterality: right Lung location: upper lobe of lung Qualified Code(s): J18.1 - Lobar pneumonia, unspecified organism (3) Hip pain, bilateral Code(s): M25.551 - PAIN IN RIGHT HIP; M25.552 - PAIN IN LEFT HIP (4) Hx pulmonary embolism Code(s): Z86.711 - PERSONAL HISTORY OF PULMONARY EMBOLISM (5) Frequent falls Code(s): R29.6 - REPEATED FALLS (6) Tibial plateau fracture, right Code(s): S82.141A - DISPLACED BICONDYLAR FRACTURE OF RIGHT TIBIA, INIT (7) Diabetes Code(s): E11.9 - TYPE 2 DIABETES MELLITUS WITHOUT COMPLICATIONS (8) Hypertension Code(s): I10 - ESSENTIAL (PRIMARY) HYPERTENSION (9) Morbid obesity Code(s): E66.01 - MORBID (SEVERE) OBESITY DUE TO EXCESS CALORIES (10) Sleep apnea Code(s): G47.30 - SLEEP APNEA, UNSPECIFIED
[2018-08-18] MEDS ORDERED: DEXTROSE 5%-WATER 100 ML IVPB ONE (10:14)
[2018-08-18] MEDS: amLODIPine BESYLATE 5 MG TABLET (FP) PO SCH (10:32)
[2018-08-18] MEDS: FUROSEMIDE 20 MG TABLET (FP) PO SCH (10:32)
[2018-08-18] MEDS: APIXABAN 5 MG TABLET PO SCH ×2 (10:32→21:54)
[2018-08-18] MEDS: CALCIUM 500MG/VIT-D 200 UNITS COMBO TABLET (FP) PO SCH (10:32)
[2018-08-18] MEDS: PANTOPRAZOLE 20 MG TABLET (FP) PO SCH (10:33)
[2018-08-18] MEDS: LISINOPRIL 20 MG TABLET (FP) PO SCH (10:33)
[2018-08-18] MEDS: CEFTRIAXONE 2 GM in DEXTROSE 5%-WATER 100 ML IVPB SCH (10:33)
[2018-08-18] MEDS: LIDOCAINE 5% TOPICAL PATCH TP SCH (10:34)
[2018-08-18] MEDS: AZITHROMYCIN IVPB 500 MG/250 ML BAG IVPB SCH (11:29)
--- NOTE | 2018-08-18 15:39 | PN ---
Progress Note, Physician History of Present Illness: AWAKE, ALERT NO COMPLAINTS OF CP/SOB/ COUGH NO C/O DYSURIA NO C/O FEVER/ CHILLS TEMPS DOWN AFEBRILE WBC WNL BC (-) URINE C/S E COLI - Current Medication List Current Medications: Active Medications Acetaminophen (Tylenol -) 500 mg PO Q6H PRN PRN Reason: PAIN Last Admin: 08/17/18 16:51 Dose: 500 mg Acetaminophen (Tylenol -) 650 mg PO Q6H PRN PRN Reason: FEVER Albuterol Sulfate (Ventolin 0.083% Nebulizer Soln -) 1 amp NEB Q6H PRN PRN Reason: SHORT OF BREATH/WHEEZING Amlodipine Besylate (Norvasc -) 5 mg PO DAILY [facility] Last Admin: 08/18/18 10:32 Dose: 5 mg Apixaban (Eliquis -) 5 mg PO BID [facility] Last Admin: 08/18/18 10:32 Dose: 5 mg Atorvastatin Calcium (Lipitor -) 10 mg PO HS [facility] Last Admin: 08/18/18 00:19 Dose: 10 mg Calcium Carbonate/Cholecalciferol (Os-Aroldo 500+D -) 1 tab PO DAILY [facility] Last Admin: 08/18/18 10:32 Dose: 1 tab Furosemide (Lasix -) 20 mg PO DAILY [facility] Last Admin: 08/18/18 10:32 Dose: 20 mg Gabapentin (Neurontin -) 100 mg PO TID [facility] Last Admin: 08/18/18 14:09 Dose: 100 mg Ceftriaxone Sodium 2 gm/ (Dextrose) 100 mls @ 100 mls/hr IVPB DAILY [facility]; Protocol Last Admin: 08/18/18 10:33 Dose: 100 mls/hr Azithromycin (Zithromax 500mg Ivpb (Pre-Docked)) 500 mg in 250 mls @ 250 mls/ hr IVPB DAILY [facility] Last Admin: 08/18/18 11:29 Dose: 250 mls/hr Insulin Aspart (Novolog Vial Sliding Scale -) 1 vial SQ ACHS [facility]; Protocol Last Admin: 08/18/18 12:26 Dose: Not Given Lidocaine (Lidoderm Patch -) 1 patch TP DAILY [facility] Last Admin: 08/18/18 10:34 Dose: 1 patch Lisinopril (Prinivil) 20 mg PO DAILY [facility] Last Admin: 08/18/18 10:33 Dose: 20 mg Miscellaneous (Lidoderm Patch Removal) 1 each MC DAILY@2200 [facility] Last Admin: 08/18/18 00:18 Dose: 1 each Pantoprazole Sodium (Protonix -) 20 mg PO DAILY [facility] Last Admin: 08/18/18 10:33 Dose: 20 mg Sitagliptin Phosphate (Januvia -) 50 mg PO DAILY@0700 [facility] Last Admin: 08/18/18 08:01 Dose: 50 mg - Objective Vital Signs: Vital Signs Temperature 98.7 F 08/18/18 06:00 Pulse Rate 75 08/18/18 06:00 Respiratory Rate 20 08/18/18 06:00 Blood Pressure 101/50 L 08/18/18 06:00 O2 Sat by Pulse Oximetry (%) 99 08/17/18 21:00 Constitutional: Yes: No Distress, Obese Cardiovascular: Yes: Regular Rate and Rhythm, S1, S2 Respiratory: Yes: Diminished Gastrointestinal: Yes: Normal Bowel Sounds, Soft, Abdomen, Obese. No: Tenderness Edema: Yes Labs: CBC, BMP 08/18/18 06:34 08/18/18 06:34 Assessment/Plan COMMUNITY ACQUIRED RUL PNEUMONIA ? UTI DAY #3 ANTIBIOTICS CONTINUE CEFTRIAXONE D/C ZITHROMAX
--- NOTE | 2018-08-18 17:03 | CONS ---
INFECTIOUS DISEASE CONSULTATION DATE OF CONSULTATION: DATE OF DICTATION: 08/17/2018 The patient is an 83-year-old, morbidly obese female evaluated for pneumonia. History was obtained primarily from the chart as she does not give a reliable history. She lives at home. She was admitted after falling at home. According to the notes and the patient, she had fallen. She states that she fell on her back side. However, according to the notes, there was concern that she sustained trauma to her left hip. She was admitted to the hospital where x-rays were performed as well as a pelvic CAT scan. There was no CT evidence of fracture on CAT scan. A CAT scan of the chest was performed because of complaints of shortness of breath and a history of pulmonary embolism. The study was negative for pulmonary embolism; however, did reveal an infiltrate present in the right upper lobe. She complains of dyspnea. She has occasional cough which she describes as dry. No hemoptysis or chest pain. Her course has been complicated by fever, 101.3. Urine culture is now growing a lactose account maintenance representative. She denies any urinary tract symptoms. PAST MEDICAL HISTORY: Positive for morbid obesity, hypertension, hyperlipidemia, diabetes mellitus, congestive heart failure, colon cancer, PE. PAST SURGICAL HISTORY: Status post right tibial plateau fracture which was managed medically in March 2018. ALLERGIES: No known allergies. MEDICATIONS: At the present time include ceftriaxone, Zithromax, Tylenol, albuterol, Norvasc, Eliquis, Lipitor, lisinopril, Protonix, Januvia. SOCIAL HISTORY: Resides in the community, nonsmoker, nondrinker. SYSTEMS REVIEW: Neurologic: No loss of consciousness, seizure activity, or focal weakness. Cardiac: Negative chest pain or palpitations. Respiratory: As per HPI. Gastrointestinal: Negative vomiting or diarrhea. Genitourinary: Positive for urinary tract infection. LABORATORY DATA: White count 6.8, hematocrit 34.3, platelet count 171. Creatinine 1.0. Liver enzymes normal. Urinalysis: White cells 13. Urine culture growing lactose account maintenance representative. PHYSICAL EXAMINATION: General: She is awake and alert, supine in bed. Breathing is non-labored. Vital Signs: Temperature 99.5, T-max 101.3; blood pressure 117/50; pulse 93, regular; respirations 20 per minute. HEENT: Sclerae are anicteric. Heart: Sounds S1, S2. Lungs: Poor inspiratory effort, grossly clear. Abdomen: Obese, soft, nontender. Extremities: Positive for edema. IMPRESSION: 1. Community-acquired versus atypical right upper lobe pneumonia. 2. Urinary tract infection. 3. Status post fall. Await cultures. Obtain urine legionella and pneumococcal antigens. Empiric antibiotic coverage with Zithromax and ceftriaxone. Will follow. Thank you for the kind referral. NILO NOBLE M.D. [id number]
[2018-08-19] MEDS ORDERED: PT OWN MED DRAWER 7, Y5N ONE (06:21)
[2018-08-19] MEDS: GABAPENTIN 100 MG CAPSULE (FP) PO SCH ×3 (06:49→22:41)
[2018-08-19] MEDS: sitaGLIPtin PHOSPHATE 50 MG TABLET PO SCH (06:49)
[2018-08-19] MEDS: INSULIN SLIDING SCALE (NOVOLOG) 1 VIAL SQ SCH ×4 (06:49→22:41)
--- NOTE | 2018-08-19 07:59 | PN ---
Progress Note, Physician Chief Complaint: AWAKE ALERT FEELING BETTER DENIES FEVER OR CHILLS, NO CP/SOB - Current Medication List Current Medications: Active Medications Acetaminophen (Tylenol -) 500 mg PO Q6H PRN PRN Reason: PAIN Last Admin: 08/17/18 16:51 Dose: 500 mg Acetaminophen (Tylenol -) 650 mg PO Q6H PRN PRN Reason: FEVER Last Admin: 08/19/18 02:24 Dose: 650 mg Albuterol Sulfate (Ventolin 0.083% Nebulizer Soln -) 1 amp NEB Q6H PRN PRN Reason: SHORT OF BREATH/WHEEZING Amlodipine Besylate (Norvasc -) 5 mg PO DAILY [facility] Last Admin: 08/18/18 10:32 Dose: 5 mg Apixaban (Eliquis -) 5 mg PO BID [facility] Last Admin: 08/18/18 21:54 Dose: 5 mg Atorvastatin Calcium (Lipitor -) 10 mg PO HS [facility] Last Admin: 08/18/18 21:54 Dose: 10 mg Calcium Carbonate/Cholecalciferol (Os-Aroldo 500+D -) 1 tab PO DAILY [facility] Last Admin: 08/18/18 10:32 Dose: 1 tab Furosemide (Lasix -) 20 mg PO DAILY [facility] Last Admin: 08/18/18 10:32 Dose: 20 mg Gabapentin (Neurontin -) 100 mg PO TID [facility] Last Admin: 08/19/18 06:49 Dose: 100 mg Ceftriaxone Sodium 2 gm/ (Dextrose) 100 mls @ 100 mls/hr IVPB DAILY [facility]; Protocol Last Admin: 08/18/18 10:33 Dose: 100 mls/hr Insulin Aspart (Novolog Vial Sliding Scale -) 1 vial SQ ACHS [facility]; Protocol Last Admin: 08/19/18 06:49 Dose: Not Given Lidocaine (Lidoderm Patch -) 1 patch TP DAILY [facility] Last Admin: 08/18/18 10:34 Dose: 1 patch Lisinopril (Prinivil) 20 mg PO DAILY [facility] Last Admin: 08/18/18 10:33 Dose: 20 mg Miscellaneous (Lidoderm Patch Removal) 1 each MC DAILY@2200 [facility] Last Admin: 08/18/18 21:54 Dose: 1 each Pantoprazole Sodium (Protonix -) 20 mg PO DAILY [facility] Last Admin: 08/18/18 10:33 Dose: 20 mg Pneumococcal 13-Valent Conj Vacc (Prevnar 13 Syringe -) 0.5 ml IM .ONCE ONE Stop: 08/19/18 10:01 Sitagliptin Phosphate (Januvia -) 50 mg PO DAILY@0700 [facility] Last Admin: 08/19/18 06:49 Dose: 50 mg - Objective Vital Signs: Vital Signs Temperature 98.3 F 08/19/18 06:00 Pulse Rate 82 08/19/18 06:00 Respiratory Rate 20 08/19/18 06:00 Blood Pressure 112/53 L 08/19/18 06:00 O2 Sat by Pulse Oximetry (%) 98 08/18/18 21:00 Constitutional: Yes: Mild Distress Eyes: Yes: WNL HENT: Yes: WNL Neck: Yes: WNL Cardiovascular: Yes: Pulse Irregular Respiratory: Yes: Diminished, On Nasal O2 Gastrointestinal: Yes: Abdomen, Obese Genitourinary: Yes: Incontinence Musculoskeletal: Yes: Muscle Weakness Extremities: Yes: WNL Edema: Yes Edema: LLE: Trace, RLE: Trace Peripheral Pulses WNL: Yes Integumentary: Yes: Other Wound/Incision: Yes: Clean/Dry Neurological: Yes: Pre-Existing Deficit, Weakness ...Motor Strength: LLE, RLE Psychiatric: Yes: Other Labs: CBC, BMP 08/18/18 06:34 08/18/18 06:34 Problem List - Problems (1) CAP (community acquired pneumonia) Code(s): J18.9 - PNEUMONIA, UNSPECIFIED ORGANISM Qualifiers: Laterality: right Lung location: upper lobe of lung Qualified Code(s): J18.1 - Lobar pneumonia, unspecified organism (2) Hip pain, bilateral Code(s): M25.551 - PAIN IN RIGHT HIP; M25.552 - PAIN IN LEFT HIP (3) Hx pulmonary embolism Code(s): Z86.711 - PERSONAL HISTORY OF PULMONARY EMBOLISM (4) Unable to ambulate Code(s): R26.2 - DIFFICULTY IN WALKING, NOT ELSEWHERE CLASSIFIED (5) Acute bilateral knee pain Code(s): M25.561 - PAIN IN RIGHT KNEE; M25.562 - PAIN IN LEFT KNEE (6) Frequent falls Code(s): R29.6 - REPEATED FALLS (7) Diabetes Code(s): E11.9 - TYPE 2 DIABETES MELLITUS WITHOUT COMPLICATIONS (8) Hypertension Code(s): I10 - ESSENTIAL (PRIMARY) HYPERTENSION (9) Morbid obesity Code(s): E66.01 - MORBID (SEVERE) OBESITY DUE TO EXCESS CALORIES Assessment/Plan CXR BEDSIDE SWALLOW EVAL R/O ASPIRATIONS ON ABX FOR PNEUMONIA ALSO HAS UTI STOP AZITHROMYCIN PER ID, CONTINUE CEFTRIAXONE TODAY CEFTIN OUTPATIENT CHECK CULTURES SENS TO CEFTIN ID CONSULT APPRECIATED PT EVAL PAIN CONTROL ON ELIQUIS AC FOR H/O PE PT EVAL ORTHOPEDICS EVAL APPRECIATED LIDOCAINE PATCH TO RIGHT HIP/LOWER EXTREMITY DC PLANNING TODAY OR TOMORROW
[2018-08-19] MEDS ORDERED: PNEUMOC 13-VAL CONJ-DIP CRM/PF 0.5 ML DISP.SYRIN IM ONE (10:00)
[2018-08-19 10:23] LABS: BLOOD UREA NITROGEN 14.8 mg/dL (7-18); CALCIUM 8.7 mg/dL (8.5-10.1); CREATININE 0.7 mg/dL (0.55-1.3); MAGNESIUM 2.2 mg/dL (1.8-2.4); POTASSIUM 3.6 mmol/L (3.5-5.1)
--- NOTE | 2018-08-19 10:29 | PN ---
Progress Note (short form) - Note Progress Note: Resting in NAD. Breathing feels overall better. Intake & Output 08/16/18 08/17/18 08/18/18 08/19/18 23:59 23:59 23:59 23:59 Intake Total 0 1490 650 400 Balance 0 1490 650 400 Weight 240 lb 12.8 oz 240 lb 235 lb 14.4 oz 241 lb 4.8 oz Last Vital Signs Temp Pulse Resp BP Pulse Ox 98.3 F 82 20 112/53 L 98 08/19/18 06:00 08/19/18 06:00 08/19/18 06:00 08/19/18 06:00 08/18/18 21:00 Active Medications Acetaminophen (Tylenol -) 500 mg PO Q6H PRN PRN Reason: PAIN Last Admin: 08/17/18 16:51 Dose: 500 mg Acetaminophen (Tylenol -) 650 mg PO Q6H PRN PRN Reason: FEVER Last Admin: 08/19/18 02:24 Dose: 650 mg Albuterol Sulfate (Ventolin 0.083% Nebulizer Soln -) 1 amp NEB Q6H PRN PRN Reason: SHORT OF BREATH/WHEEZING Amlodipine Besylate (Norvasc -) 5 mg PO DAILY [facility] Last Admin: 08/18/18 10:32 Dose: 5 mg Apixaban (Eliquis -) 5 mg PO BID [facility] Last Admin: 08/18/18 21:54 Dose: 5 mg Atorvastatin Calcium (Lipitor -) 10 mg PO HS [facility] Last Admin: 08/18/18 21:54 Dose: 10 mg Calcium Carbonate/Cholecalciferol (Os-Aroldo 500+D -) 1 tab PO DAILY [facility] Last Admin: 08/18/18 10:32 Dose: 1 tab Furosemide (Lasix -) 20 mg PO DAILY [facility] Last Admin: 08/18/18 10:32 Dose: 20 mg Gabapentin (Neurontin -) 100 mg PO TID [facility] Last Admin: 08/19/18 06:49 Dose: 100 mg Ceftriaxone Sodium 2 gm/ (Dextrose) 100 mls @ 100 mls/hr IVPB DAILY [facility]; Protocol Last Admin: 08/18/18 10:33 Dose: 100 mls/hr Insulin Aspart (Novolog Vial Sliding Scale -) 1 vial SQ ACHS [facility]; Protocol Last Admin: 08/19/18 06:49 Dose: Not Given Lidocaine (Lidoderm Patch -) 1 patch TP DAILY [facility] Last Admin: 08/18/18 10:34 Dose: 1 patch Lisinopril (Prinivil) 20 mg PO DAILY [facility] Last Admin: 08/18/18 10:33 Dose: 20 mg Miscellaneous (Lidoderm Patch Removal) 1 each MC DAILY@2200 [facility] Last Admin: 08/18/18 21:54 Dose: 1 each Pantoprazole Sodium (Protonix -) 20 mg PO DAILY [facility] Last Admin: 08/18/18 10:33 Dose: 20 mg Sitagliptin Phosphate (Januvia -) 50 mg PO DAILY@0700 [facility] Last Admin: 08/19/18 06:49 Dose: 50 mg Constitutional: Yes: No Distress, Calm, Obese Eyes: Yes: Conjunctiva Clear, EOM Intact HENT: Yes: Atraumatic, Normocephalic Neck: Yes: Supple, Trachea Midline Cardiovascular: Yes: Regular Rate and Rhythm Respiratory: Yes: Diminished. No: Accessory Muscle Use, Rales, Rhonchi, SOB, SOB on Exertion, Stridor, Tachypnea, Wheezes ...Inspection: Yes: WNL Gastrointestinal: Yes: Normal Bowel Sounds, Soft, Abdomen, Obese Renal/: Yes: WNL Musculoskeletal: Yes: WNL Extremities: Yes: WNL Edema: No Peripheral Pulses WNL: Yes Integumentary: Yes: WNL Neurological: Yes: WNL, Alert, Oriented ...Motor Strength: WNL Psychiatric: Yes: WNL, Alert, Oriented Labs: Laboratory Results - last 24 hr 08/18/18 08/18/18 08/18/18 12:25 16:57 21:53 POC Glucometer 134 122 122 08/19/18 06:10 POC Glucometer 96 Problem List - Problems (1) Pneumonia Code(s): J18.9 - PNEUMONIA, UNSPECIFIED ORGANISM (2) CAP (community acquired pneumonia) Code(s): J18.9 - PNEUMONIA, UNSPECIFIED ORGANISM Qualifiers: Laterality: right Lung location: upper lobe of lung Qualified Code(s): J18.1 - Lobar pneumonia, unspecified organism (3) Hip pain, bilateral Code(s): M25.551 - PAIN IN RIGHT HIP; M25.552 - PAIN IN LEFT HIP (4) Hx pulmonary embolism Code(s): Z86.711 - PERSONAL HISTORY OF PULMONARY EMBOLISM (5) Frequent falls Code(s): R29.6 - REPEATED FALLS (6) Tibial plateau fracture, right Code(s): S82.141A - DISPLACED BICONDYLAR FRACTURE OF RIGHT TIBIA, INIT (7) Diabetes Code(s): E11.9 - TYPE 2 DIABETES MELLITUS WITHOUT COMPLICATIONS (8) Hypertension Code(s): I10 - ESSENTIAL (PRIMARY) HYPERTENSION (9) Morbid obesity Code(s): E66.01 - MORBID (SEVERE) OBESITY DUE TO EXCESS CALORIES (10) Sleep apnea Code(s): G47.30 - SLEEP APNEA, UNSPECIFIED Assessment/Plan ABX per ID: consideration to change to PO Eliquis No indication for systemic steroids Aspiration precautions Repeat imaging in 6 to 8 weeks for follow up of the RUL infiltrate and non- specific mediastinal adenopathy D/C planning Dr Sandoval Problem List - Problems (1) Pneumonia Code(s): J18.9 - PNEUMONIA, UNSPECIFIED ORGANISM (2) CAP (community acquired pneumonia) Code(s): J18.9 - PNEUMONIA, UNSPECIFIED ORGANISM Qualifiers: Laterality: right Lung location: upper lobe of lung Qualified Code(s): J18.1 - Lobar pneumonia, unspecified organism (3) Hip pain, bilateral Code(s): M25.551 - PAIN IN RIGHT HIP; M25.552 - PAIN IN LEFT HIP (4) Hx pulmonary embolism Code(s): Z86.711 - PERSONAL HISTORY OF PULMONARY EMBOLISM (5) Frequent falls Code(s): R29.6 - REPEATED FALLS (6) Tibial plateau fracture, right Code(s): S82.141A - DISPLACED BICONDYLAR FRACTURE OF RIGHT TIBIA, INIT (7) Diabetes Code(s): E11.9 - TYPE 2 DIABETES MELLITUS WITHOUT COMPLICATIONS (8) Hypertension Code(s): I10 - ESSENTIAL (PRIMARY) HYPERTENSION (9) Morbid obesity Code(s): E66.01 - MORBID (SEVERE) OBESITY DUE TO EXCESS CALORIES (10) Sleep apnea Code(s): G47.30 - SLEEP APNEA, UNSPECIFIED
--- NOTE | 2018-08-19 10:38 | EKG ---
Test Reason : Blood Pressure : / mmHG Vent. Rate : 098 BPM Atrial Rate : 098 BPM P-R Int : 186 ms QRS Dur : 172 ms QT Int : 402 ms P-R-T Axes : 052 054 080 degrees QTc Int : 513 ms NORMAL SINUS RHYTHM LEFT BUNDLE BRANCH BLOCK ABNORMAL ECG WHEN COMPARED WITH ECG OF 14-APR-2018 15:06, QRS AXIS SHIFTED RIGHT T WAVE INVERSION NO LONGER EVIDENT IN LATERAL LEADS Confirmed by Gus Zuluaga MD ([id number]) on 08/19/2018 10:38:03 AM Referred By: Confirmed By:Gus Zuluaga MD
[2018-08-19] MEDS ORDERED: DEXTROSE 5%-WATER 100 ML IVPB ONE (11:15)
[2018-08-19] MEDS: FUROSEMIDE 20 MG TABLET (FP) PO SCH (11:20)
[2018-08-19] MEDS: LISINOPRIL 20 MG TABLET (FP) PO SCH (11:20)
[2018-08-19] MEDS: CALCIUM 500MG/VIT-D 200 UNITS COMBO TABLET (FP) PO SCH (11:20)
[2018-08-19] MEDS: APIXABAN 5 MG TABLET PO SCH ×2 (11:20→22:41)
[2018-08-19] MEDS: PANTOPRAZOLE 20 MG TABLET (FP) PO SCH (11:21)
--- NOTE | 2018-08-19 12:30 | CONSULT ---
Admitting History and Physical - Primary Care Physician PCP: Melina Mac - Admission History of Present Illness: 83 year old woman with Pmhx: morbid obesity, HTN, HLD, CHF, h/o pulmonary embolism, DM, colon cancer,admitted after slipped out of bed, landed on left hip , could not get up after fall, home health aid called EMS. Patient also complain of SOB without cough/congestion COMMUNITY ACQUIRED RUL PNEUMONIA ? UTI On a/b tx, pending d/c. Selected Entries 08/18/18 08/18/18 08/18/18 06:00 09:10 10:00 Breakfast 25% Diet Tolerated Poor Supper Temperature 98.7 F 98.1 F 08/18/18 08/18/18 08/18/18 16:30 18:30 20:35 Breakfast Diet Tolerated Fair Supper 25% Temperature 98 F 98.4 F 08/19/18 08/19/18 06:00 10:00 Breakfast 25% Diet Tolerated Poor Supper Temperature 98.3 F Laboratory Tests 08/17/18 08/18/18 07:30 06:34 WBC 6.8 6.2 Pt with decreased appetite and intake. she denies dysphagia but reports that she had "outdated" milk on and has had Diarrhea since, 4 times yesterday. Nursing informed. History Source: Patient Limitations to Obtaining History: No Limitations - Past Medical History Cardiovascular: Yes: HTN, Hyperlipdemia Pulmonary: Yes: Pulmonary Embolus, Other (former smoker, morbid obesity, probable ALEJANDRA). No: Asthma, COPD, O2 Dependent, Pneumonia, Previously Intubated , Sleep Apnea ...: No Heme/Onc: Yes: Anemia (iron defic 40yrs ago) Endocrine: Yes: Diabetes Mellitus - Past Surgical History Past Surgical History: Yes: - Smoking History Smoking history: Former smoker Have you smoked in the past 12 months: No If you are a former smoker, when did you quit?: 1974 - Alcohol/Substance Use Hx Alcohol Use: Yes (No current use ) History of Substance Use: reports: None - Social History ADL: Support Services (Home Health Aid) History of Recent Travel: No History - Admission Reason For Visit: COMMUNITY ACQUIRED PNEUMONIA - Diagnostics X-ray: Report Reviewed - General Mental Status: Alert and Oriented, Awake and Alert, Able to Follow Commands Attention: Intact Ability to Follow Directions: Excellent Head/Neck Control: WFL - Hearing Hearing: Functional Hearing: Impaired, Left Ear, Right Ear Hearing Aide: Yes With Patient: No Speech Evaluation - Communication Primary Language: ITALIAN Communication: Yes: Within Normal Limits Oral Expression Ability: Yes: No Impairment - Speech Production Able to Make Needs Known: Yes: WNL Intelligibility: Yes: WNL - Speech Characteristics Voice Loudness: Normal Voice Pitch: Yes: Normal Voice Phonatory-based Quality: Yes: Normal, Quivering Nasal Resonance: Normal Articulation: Yes: Precise Rate of Speech: Intact - Language/Auditory Comprehension Follows: Yes: 2 Stage Simple Commands Observation: Comprehends Conversational Speech: Yes - Language/Verbal Expression Able to Respond to Simple Queries: Yes: WNL Able to Communicate Wants and Needs: Yes: WNL Functional Communication Status: Yes: WNL - Memory/Perception termite technician Memory: Yes: WNL Short Term Memory: Yes: WNL - Swallow Evaluation/Bedside Assessment Current Nutritional Intake: Regular, Thin Liquids Oral Secretions: Yes: WFL Dentition: Yes: Missing Teeth Facial Symmetry at Rest: Symmetrical Facial Symmetry on Retraction: Symmetrical Sensation: Normal Against Resistance Opening: Normal Against Resistance Closing: Normal Pucker Lips: Normal Smile: Normal Lingual Movement: Normal, Symmetric Lingual Speed of Movement: Normal Lingual Movement Strgth Against Opposition: Normal Lingual Movement Characteristics: Normal Velopharyngeal Movement: Normal Laryngeal Elevation: WFL Laryngeal Movement: Able to Palpate Rate of Intake: WFL Bolus Size: WFL Labial Seal: WFL Chewing: WFL Oral Prep Time: WFL A-P Transit: WFL Pocketing: None Timing of Swallow: WFL Coughing/Throat Clear: No Change in Voice: No Recommendations - Speech Evaluation, Impression/Plan Impression: Swallowing intact. Limited appetite. Pt reports diarrhea. - Disposition Discharge to: [facility] - Dysphagia Impressions/Plan Swallowing Skills: WFL Dysphagia Impressions: No Impairment *Silent aspiration: cannot be R/O at bedside - Recommendations Diet Consistency: Regular Medication Administration: Whole with water Liquids: Thin Liquids
[2018-08-19] MEDS: amLODIPine BESYLATE 5 MG TABLET (FP) PO SCH (14:35)
[2018-08-19] MEDS: LIDOCAINE 5% TOPICAL PATCH TP SCH (14:35)
[2018-08-19] MEDS: CEFTRIAXONE 2 GM in DEXTROSE 5%-WATER 100 ML IVPB SCH (14:35)
[2018-08-19] MEDS: ATORVASTATIN CA 10 MG TABLET (FP) PO SCH (22:41)
[2018-08-19] MEDS: LIDOCAINE PATCH REMOVAL MC SCH (22:42)
[2018-08-20] MEDS: GABAPENTIN 100 MG CAPSULE (FP) PO SCH ×2 (06:50→13:58)
[2018-08-20] MEDS: INSULIN SLIDING SCALE (NOVOLOG) 1 VIAL SQ SCH ×3 (06:50→16:20)
[2018-08-20] MEDS: sitaGLIPtin PHOSPHATE 50 MG TABLET PO SCH (06:50)
--- NOTE | 2018-08-20 09:58 | DS ---
Physical Examination Vital Signs: Vital Signs Temperature 98.4 F 08/20/18 07:34 Pulse Rate 82 08/20/18 07:34 Respiratory Rate 20 08/20/18 07:34 Blood Pressure 136/62 08/20/18 07:34 O2 Sat by Pulse Oximetry (%) 98 08/19/18 21:00 Constitutional: Yes: No Distress Eyes: Yes: WNL HENT: Yes: WNL Neck: Yes: WNL Cardiovascular: Yes: Regular Rate and Rhythm Respiratory: Yes: WNL, On Nasal O2 Gastrointestinal: Yes: Abdomen, Obese Renal/: Yes: Incontinence Musculoskeletal: Yes: Muscle Weakness Edema: Yes Integumentary: Yes: Other Wound/Incision: Yes: Dressing Dry and Intact Neurological: Yes: Pre-Existing Deficit ...Motor Strength: LLE, RLE Psychiatric: Yes: Other Labs: CBC, BMP 08/18/18 06:34 08/19/18 08:00 Discharge Summary Reason For Visit: COMMUNITY ACQUIRED PNEUMONIA Current Active Problems CAP (community acquired pneumonia) (Acute) Hip pain, bilateral (Acute) Hx pulmonary embolism (Acute) Pneumonia (Acute) Unable to ambulate (Acute) Procedures: Principal: LABS/XRAYS Hospital Course: ADMITTED FOR PNEUMONIA, TREATED WITH IV ABX NEBS, 02 SUPPORT NON-AMBULATORY WILL NEED SNF Condition: Fair - Instructions Diet, Activity, Other Instructions: DYSPHAGIA WHOLE THIN LIQUIDS Disposition: [facility] - Home Medications Comprehensive Discharge Medication List: Ambulatory Orders Acetaminophen [Tylenol Extra Strength] 500 mg PO Q6H PRN 04/18/16 Apixaban [Eliquis] 5 mg PO BID 04/18/16 Atorvastatin Ca [Lipitor] 10 mg PO HS 04/18/16 Furosemide [Lasix -] 20 mg PO DAILY 04/18/16 Lisinopril [Zestril] 20 mg PO AM 04/18/16 Omeprazole 20 mg PO DAILY 04/18/16 Sitagliptin Phosphate [Januvia] 50 mg PO DAILY 04/18/16 Gabapentin [Neurontin -] 100 mg PO TID 10/30/16 Amlodipine Besylate 5 mg PO DAILY 04/15/18 Calcium Carbonate/Vitamin D3 [Calcium 600 + Vit D Tablet] 1 each PO DAILY
[2018-08-20] MEDS ORDERED: DEXTROSE 5%-WATER 100 ML IVPB ONE (10:24)
[2018-08-20] MEDS ORDERED: PT OWN MED DRAWER 7, Y5N ONE (10:24)
[2018-08-20] MEDS: APIXABAN 5 MG TABLET PO SCH (10:55)
[2018-08-20] MEDS: CEFTRIAXONE 2 GM in DEXTROSE 5%-WATER 100 ML IVPB SCH (10:56)
[2018-08-20] MEDS: FUROSEMIDE 20 MG TABLET (FP) PO SCH (10:56)
[2018-08-20] MEDS: LISINOPRIL 20 MG TABLET (FP) PO SCH (10:56)
[2018-08-20] MEDS: CALCIUM 500MG/VIT-D 200 UNITS COMBO TABLET (FP) PO SCH (10:56)
[2018-08-20] MEDS: PANTOPRAZOLE 20 MG TABLET (FP) PO SCH (10:56)
[2018-08-20] MEDS: amLODIPine BESYLATE 5 MG TABLET (FP) PO SCH (10:56)
[2018-08-20] MEDS: LIDOCAINE 5% TOPICAL PATCH TP SCH (10:57)
[2018-08-20] MEDS ORDERED: INSULIN (NOVOLOG) ASPART 100 UNITS/ML 10ML VIAL ONE (11:25)
--- NOTE | 2018-08-20 11:56 | PN ---
Progress Note, [employer] - Note Progress Note: Pt tolerating Dys whole diet and thin liquids. Pending d/c. F/u by [facility] [employer] at [facility]- consider: Diet Consistency: Regular Medication Administration: Whole with water Liquids: Thin Liquids
--- NOTE | 2018-08-20 14:09 | PN ---
Progress Note (short form) - Note Progress Note: PULMONARY Denies shortness of breath, reports minimal cough. No fevers or chills. Vital Signs Period Temp Pulse Resp BP Sys/Dean Pulse Ox Last 24 Hr 98.3 F-98.5 F 76-82 20-20 101-136/43-62 98 Gen: NAD at rest Heart: RRR Lung: decreased breath sounds at the bases Abd: soft, nontender Ext: no edema CBC, BMP 08/18/18 06:34 08/19/18 08:00 Active Medications Acetaminophen (Tylenol -) 500 mg PO Q6H PRN PRN Reason: PAIN Last Admin: 08/17/18 16:51 Dose: 500 mg Acetaminophen (Tylenol -) 650 mg PO Q6H PRN PRN Reason: FEVER Last Admin: 08/19/18 02:24 Dose: 650 mg Albuterol Sulfate (Ventolin 0.083% Nebulizer Soln -) 1 amp NEB Q6H PRN PRN Reason: SHORT OF BREATH/WHEEZING Amlodipine Besylate (Norvasc -) 5 mg PO DAILY [facility] Last Admin: 08/20/18 10:56 Dose: 5 mg Apixaban (Eliquis -) 5 mg PO BID [facility] Last Admin: 08/20/18 10:55 Dose: 5 mg Atorvastatin Calcium (Lipitor -) 10 mg PO HS [facility] Last Admin: 08/19/18 22:41 Dose: 10 mg Calcium Carbonate/Cholecalciferol (Os-Aroldo 500+D -) 1 tab PO DAILY [facility] Last Admin: 08/20/18 10:56 Dose: 1 tab Furosemide (Lasix -) 20 mg PO DAILY [facility] Last Admin: 08/20/18 10:56 Dose: 20 mg Gabapentin (Neurontin -) 100 mg PO TID [facility] Last Admin: 08/20/18 13:58 Dose: 100 mg Ceftriaxone Sodium 2 gm/ (Dextrose) 100 mls @ 100 mls/hr IVPB DAILY [facility]; Protocol Last Admin: 08/20/18 10:56 Dose: 100 mls/hr Insulin Aspart (Novolog Vial Sliding Scale -) 1 vial SQ ACHS [facility]; Protocol Last Admin: 08/20/18 11:31 Dose: Not Given Lidocaine (Lidoderm Patch -) 1 patch TP DAILY [facility] Last Admin: 08/20/18 10:57 Dose: 1 patch Lisinopril (Prinivil) 20 mg PO DAILY [facility] Last Admin: 08/20/18 10:56 Dose: 20 mg Miscellaneous (Lidoderm Patch Removal) 1 each MC DAILY@2200 [facility] Last Admin: 08/19/18 22:42 Dose: 1 each Pantoprazole Sodium (Protonix -) 20 mg PO DAILY [facility] Last Admin: 08/20/18 10:56 Dose: 20 mg Sitagliptin Phosphate (Januvia -) 50 mg PO DAILY@0700 [facility] Last Admin: 08/20/18 06:50 Dose: 50 mg A/P Pneumonia HTN DM Hyperlipidemia CHF Morbid Obesity h/o PE - complete antibiotics - continue anticoagulation - outpt PFTs, PSG - will need outpt f/u of chest imaging to ensure resolution of infiltrate - DVT prophylaxis
[2018-08-20 17:06] VITALS: BP 134/73; PULSE 83; TEMP 98.9
--- NOTE | 2018-10-21 09:38 | EKG ---
Test Reason : Blood Pressure : / mmHG Vent. Rate : 079 BPM Atrial Rate : 079 BPM P-R Int : 218 ms QRS Dur : 174 ms QT Int : 452 ms P-R-T Axes : 070 -28 090 degrees QTc Int : 518 ms SINUS RHYTHM WITH 1ST DEGREE A-V BLOCK LEFT BUNDLE BRANCH BLOCK ABNORMAL ECG WHEN COMPARED WITH ECG OF 15-AUG-2018 19:31, [place] INTERVAL HAS INCREASED QRS AXIS SHIFTED LEFT Confirmed by Gus Zuluaga MD ([id number]) on 10/21/2018 9:38:11 AM Referred By: Confirmed By:Gus Zuluaga MD
== END 2018-08-20 17:41 | DRG 194 ==
LOC: JER 18:33 → JERBED 08-16 02:46 → J8W 08-16 04:35
PROVIDERS: ADMIT Family Medicine; ATTEND Family Medicine
DX: J18.9 Pneumonia, unspecified organism (principal); Z68.41 Body mass index [BMI] 40.0-44.9, adult; N39.0 Urinary tract infection, site not specified; E66.01 Morbid (severe) obesity due to excess calories; R29.6 Repeated falls; I10 Essential (primary) hypertension; E11.9 Type 2 diabetes mellitus without complications; E78.5 Hyperlipidemia, unspecified
CPT/HCPCS: 36415; 71045-TC-FY; 71275-TC; 72192-TC; 73523-TC-FY; 73562-TC-LT-FY; 73562-TC-RT-FY; 80048; 80053; 81003; 82962; 83735; 84100; 85025; 85027; 85379; 87040; 87086; 87186; 87899; 90670; 93005; 93010; 93970-TC; 97116-GP; 97162-GP; 99282-25

== ENCOUNTER 2021-12-22 23:54 | Inpatient (IN) | payer OTHER ==
[2021-12-23] MEDS ORDERED: ACETAMINOPHEN 1000 MG/100 ML BAG IVPB ONE (00:59)
[2021-12-23] MEDS ORDERED: ACETAMINOPHEN INJECTION 100 ML IVPB ONE (01:19)
[2021-12-23] MEDS ORDERED: ONDANSETRON 4 MG/2 ML VIAL IVPUSH ONE (01:22)
[2021-12-23] MEDS ORDERED: ONDANSETRON 4 MG/2 ML VIAL ONE (02:10)
[2021-12-23 02:26] LABS: BASO % 0.6 % (0-2.0); EOS % 4.9 % (0-4.5); HEMATOCRIT 39.7 % (32.4-45.2); HEMOGLOBIN 12.8 GM/dL (10.7-15.3); LYMPH % 35.6 % (8-40); MCH 28.1 pg (25.7-33.7); MCHC 32.2 g/dl (32.0-36.0); MEAN CELL VOLUME 87.4 fl (80-96); MONO % 11.1 % (3.8-10.2); NEUT % 47.8 % (42.8-82.8); PLATELET COUNT 191 10^3/uL (134-434); RBC 4.55 M/mm3 (3.60-5.2); RDW 15.6 % (11.6-15.6); WHITE BLOOD COUNT 5.3 K/mm3 (4.0-10.0)
[2021-12-23 02:32] LABS: INR 1.22 (0.83-1.09); PROTHROMBIN TIME (PATIENT) 14.1 SEC (9.7-13.0)
[2021-12-23 02:35] LABS: ACTIVATED PTT 30.3 SECONDS (25.2-36.5)
[2021-12-23 02:48] LABS: BLOOD UREA NITROGEN 54.4 mg/dL (7-18)
[2021-12-23 02:51] LABS: CREATININE 1.8 mg/dL (0.55-1.3)
[2021-12-23 02:52] LABS: BILIRUBIN,TOTAL 0.4 mg/dL (0.2-1)
[2021-12-23 02:56] LABS: N-TERMINAL BNP 235.6 pg/ml (5-450)
[2021-12-23] MEDS ORDERED: CEFTRIAXONE 2 GM in DEXTROSE 5%-WATER - 100 ML IVPB ONE (05:35)
[2021-12-23] MEDS ORDERED: CEFTRIAXONE 2 GM/100 ML BAG IVPB ONE (06:28)
[2021-12-23 08:40] LABS: EPI CELLS 3 /uL (0-25.1); HYALINE CASTS 0 /uL (0-3.1); PH,URINE 7.5 (5.0-8.0); URINE APPEARANCE TURBID; URINE BACTERIA 8036 /uL (0-1359); URINE BILIRUBIN NEGATIVE (NEGATIVE); URINE COLOR ORANGE; URINE GLUCOSE (UA) NEGATIVE (NEGATIVE); URINE KETONE NEGATIVE (NEGATIVE); URINE LEUK ESTERASE 3+ (NEGATIVE); URINE NITRITE NEGATIVE (NEGATIVE); URINE PROTEIN 4+ (NEGATIVE); URINE UROBILINOGEN 0.2 mg/dL (0.2-1.0); URINE WBC 1989 /uL (0-25.8)
[2021-12-23 08:43] LABS: URINE RBC 109.6 /uL (0-23.9); YEAST NO SEEN (NEGATIVE)
[2021-12-23] MEDS: SODIUM CHLORIDE 1,000 ML IV SCH (19:01)
[2021-12-23] MEDS ORDERED: ACETAMINOPHEN 1000 MG/100 ML BAG IVPB PRN (22:16)
[2021-12-23] MEDS: CEFTRIAXONE 1 GM in DEXTROSE 5%-WATER - 50 ML IVPB SCH (22:35)
[2021-12-23] MEDS: DEXTROSE 5%-0.45% SALINE 1,000 ML IV SCH (22:36)
[2021-12-24 07:34] LABS: EOS % 6.1 % (0-4.5); HEMATOCRIT 36.7 % (32.4-45.2); HEMOGLOBIN 11.5 GM/dL (10.7-15.3); LYMPH % 31.2 % (8-40); MCH 27.4 pg (25.7-33.7); MCHC 31.2 g/dl (32.0-36.0); MEAN CELL VOLUME 87.8 fl (80-96); MEAN PLT VOLUME 9.9 fl (7.5-11.1); MONO % 16.3 % (3.8-10.2); NEUT % 45.4 % (42.8-82.8); PLATELET COUNT 170 10^3/uL (134-434); RBC 4.18 M/mm3 (3.60-5.2); RDW 15.6 % (11.6-15.6); WHITE BLOOD COUNT 5.2 K/mm3 (4.0-10.0)
[2021-12-24 07:56] LABS: CALCIUM 8.7 mg/dL (8.5-10.1)
[2021-12-24 07:58] LABS: ALBUMIN 2.6 g/dl (3.4-5.0); BLOOD UREA NITROGEN 53.7 mg/dL (7-18)
[2021-12-24 08:01] LABS: CREATININE 1.8 mg/dL (0.55-1.3)
[2021-12-24 08:02] LABS: BILIRUBIN,TOTAL 0.2 mg/dL (0.2-1); TOT PROT 6.1 g/dl (6.4-8.2)
[2021-12-24] MEDS: CEFTRIAXONE 1 GM in DEXTROSE 5%-WATER - 50 ML IVPB SCH (10:43)
[2021-12-24] MEDS: FUROSEMIDE 20 MG TABLET (FP) PO SCH (11:04)
[2021-12-24] MEDS: SACUBITRIL/VALSARTAN 97 MG-103 MG TABLET PO SCH ×2 (11:04→21:18)
[2021-12-24] MEDS: PANTOPRAZOLE SODIUM 40 MG VIAL IVPUSH SCH (11:04)
[2021-12-24] MEDS: GABAPENTIN 100 MG CAPSULE PO SCH (11:05)
[2021-12-24] MEDS: amLODIPine BESYLATE 5 MG TABLET (FP) PO SCH (11:05)
[2021-12-24] MEDS: TIMOLOL MALEATE 0.5% GFS OPHTHALMIC SOLN 5 ML BOTTLE OD SCH (11:09)
[2021-12-24] MEDS: LIPASE/PROTEASE/AMYLASE 6,000 UNIT CAPSULE PO SCH ×2 (11:10→17:06)
[2021-12-24] MEDS: DEXTROSE 5%-0.45% SALINE 1,000 ML IV SCH (13:52)
[2021-12-24] MEDS: SODIUM CHLORIDE 1,000 ML IV SCH (16:15)
[2021-12-24] MEDS: ATORVASTATIN CA 10 MG TABLET (FP) PO SCH (21:21)
[2021-12-24] MEDS: LATANOPROST 0.005% OPHTH SOLN 2.5ML BOTTLE OD SCH (21:22)
[2021-12-25] MEDS: DEXTROSE 5%-0.45% SALINE 1,000 ML IV SCH ×2 (00:11→23:44)
[2021-12-25] MEDS: APIXABAN 5 MG TABLET PO SCH ×3 (00:12→21:29)
[2021-12-25] MEDS: LIPASE/PROTEASE/AMYLASE 6,000 UNIT CAPSULE PO SCH ×3 (06:33→17:40)
[2021-12-25 08:26] LABS: BASO % 0.7 % (0-2.0); EOS % 6.6 % (0-4.5); HEMATOCRIT 36.7 % (32.4-45.2); HEMOGLOBIN 11.8 GM/dL (10.7-15.3); LYMPH % 32.6 % (8-40); MCH 28.2 pg (25.7-33.7); MCHC 32.1 g/dl (32.0-36.0); MEAN CELL VOLUME 87.9 fl (80-96); MEAN PLT VOLUME 9.4 fl (7.5-11.1); MONO % 12.3 % (3.8-10.2); NEUT % 47.8 % (42.8-82.8); PLATELET COUNT 166 10^3/uL (134-434); RBC 4.18 M/mm3 (3.60-5.2); RDW 15.5 % (11.6-15.6); WHITE BLOOD COUNT 5.1 K/mm3 (4.0-10.0)
[2021-12-25 08:48] LABS: CALCIUM 8.8 mg/dL (8.5-10.1)
[2021-12-25 08:49] LABS: ALBUMIN 2.6 g/dl (3.4-5.0); BLOOD UREA NITROGEN 47.6 mg/dL (7-18)
[2021-12-25 08:52] LABS: CREATININE 1.5 mg/dL (0.55-1.3)
[2021-12-25 08:53] LABS: BILIRUBIN,TOTAL 0.3 mg/dL (0.2-1)
[2021-12-25] MEDS: CEFTRIAXONE 1 GM in DEXTROSE 5%-WATER - 50 ML IVPB SCH (09:41)
[2021-12-25] MEDS: amLODIPine BESYLATE 5 MG TABLET (FP) PO SCH (09:41)
[2021-12-25] MEDS: PANTOPRAZOLE SODIUM 40 MG VIAL IVPUSH SCH (09:41)
[2021-12-25] MEDS: GABAPENTIN 100 MG CAPSULE PO SCH (09:41)
[2021-12-25] MEDS: FUROSEMIDE 20 MG TABLET (FP) PO SCH (09:41)
[2021-12-25] MEDS: SACUBITRIL/VALSARTAN 97 MG-103 MG TABLET PO SCH ×2 (09:42→21:32)
[2021-12-25] MEDS: TIMOLOL MALEATE 0.5% GFS OPHTHALMIC SOLN 5 ML BOTTLE OD SCH (09:44)
[2021-12-25] MEDS: SODIUM CHLORIDE 1,000 ML IV SCH (17:40)
[2021-12-25] MEDS: ATORVASTATIN CA 10 MG TABLET (FP) PO SCH (21:29)
[2021-12-25] MEDS: LATANOPROST 0.005% OPHTH SOLN 2.5ML BOTTLE OD SCH (21:29)
[2021-12-26] MEDS: LIPASE/PROTEASE/AMYLASE 6,000 UNIT CAPSULE PO SCH ×3 (07:44→17:07)
[2021-12-26 08:35] LABS: BASO % 0.8 % (0-2.0); EOS % 5.3 % (0-4.5); HEMATOCRIT 35.3 % (32.4-45.2); LYMPH % 32.6 % (8-40); MCH 27.2 pg (25.7-33.7); MCHC 31.2 g/dl (32.0-36.0); MEAN CELL VOLUME 87.4 fl (80-96); MEAN PLT VOLUME 9.8 fl (7.5-11.1); MONO % 12.1 % (3.8-10.2); NEUT % 49.2 % (42.8-82.8); PLATELET COUNT 183 10^3/uL (134-434); RBC 4.03 M/mm3 (3.60-5.2); RDW 15.2 % (11.6-15.6); WHITE BLOOD COUNT 5.7 K/mm3 (4.0-10.0)
[2021-12-26 08:56] LABS: CALCIUM 8.5 mg/dL (8.5-10.1)
[2021-12-26 08:57] LABS: ALBUMIN 2.4 g/dl (3.4-5.0); BLOOD UREA NITROGEN 31.4 mg/dL (7-18)
[2021-12-26 08:59] LABS: CREATININE 1.1 mg/dL (0.55-1.3)
[2021-12-26 09:00] LABS: BILIRUBIN,TOTAL 0.2 mg/dL (0.2-1)
[2021-12-26 09:01] LABS: TOT PROT 5.6 g/dl (6.4-8.2)
[2021-12-26] MEDS: amLODIPine BESYLATE 5 MG TABLET (FP) PO SCH (09:50)
[2021-12-26] MEDS: PANTOPRAZOLE SODIUM 40 MG VIAL IVPUSH SCH (09:50)
[2021-12-26] MEDS: CEFTRIAXONE 1 GM in DEXTROSE 5%-WATER - 50 ML IVPB SCH (09:50)
[2021-12-26] MEDS: APIXABAN 5 MG TABLET PO SCH ×2 (09:50→21:55)
[2021-12-26] MEDS: FUROSEMIDE 20 MG TABLET (FP) PO SCH (09:50)
[2021-12-26] MEDS: GABAPENTIN 100 MG CAPSULE PO SCH (09:50)
[2021-12-26] MEDS: SACUBITRIL/VALSARTAN 97 MG-103 MG TABLET PO SCH ×2 (09:54→22:30)
[2021-12-26] MEDS: TIMOLOL MALEATE 0.5% GFS OPHTHALMIC SOLN 5 ML BOTTLE OD SCH (10:03)
[2021-12-26] MEDS: SODIUM CHLORIDE 1,000 ML IV SCH (17:07)
[2021-12-26] MEDS: LATANOPROST 0.005% OPHTH SOLN 2.5ML BOTTLE OD SCH (21:55)
[2021-12-26] MEDS: ATORVASTATIN CA 10 MG TABLET (FP) PO SCH (21:55)
[2021-12-26] MEDS: DEXTROSE 5%-0.45% SALINE 1,000 ML IV SCH (22:01)
[2021-12-27] MEDS: SODIUM CHLORIDE 1,000 ML IV SCH ×2 (05:50→12:30)
[2021-12-27] MEDS: LIPASE/PROTEASE/AMYLASE 6,000 UNIT CAPSULE PO SCH ×3 (06:09→17:33)
[2021-12-27 08:36] LABS: BASO % 0.9 % (0-2.0); EOS % 3.7 % (0-4.5); HEMATOCRIT 33.9 % (32.4-45.2); LYMPH % 33.7 % (8-40); MCH 28.3 pg (25.7-33.7); MCHC 32.4 g/dl (32.0-36.0); MEAN CELL VOLUME 87.3 fl (80-96); MEAN PLT VOLUME 9.4 fl (7.5-11.1); MONO % 13.9 % (3.8-10.2); NEUT % 47.8 % (42.8-82.8); PLATELET COUNT 166 10^3/uL (134-434); RBC 3.88 M/mm3 (3.60-5.2); RDW 15.5 % (11.6-15.6); WHITE BLOOD COUNT 7.2 K/mm3 (4.0-10.0)
[2021-12-27 09:09] LABS: CALCIUM 8.6 mg/dL (8.5-10.1)
[2021-12-27 09:14] LABS: BLOOD UREA NITROGEN 24.7 mg/dL (7-18); CREATININE 1.1 mg/dL (0.55-1.3)
[2021-12-27] MEDS: CEFTRIAXONE 1 GM in DEXTROSE 5%-WATER - 50 ML IVPB SCH (10:33)
[2021-12-27] MEDS: GABAPENTIN 100 MG CAPSULE PO SCH (10:34)
[2021-12-27] MEDS: PANTOPRAZOLE SODIUM 40 MG VIAL IVPUSH SCH (10:34)
[2021-12-27] MEDS: amLODIPine BESYLATE 5 MG TABLET (FP) PO SCH (10:35)
[2021-12-27] MEDS: FUROSEMIDE 20 MG TABLET (FP) PO SCH (10:35)
[2021-12-27] MEDS: APIXABAN 5 MG TABLET PO SCH ×2 (10:35→22:18)
[2021-12-27] MEDS: SACUBITRIL/VALSARTAN 97 MG-103 MG TABLET PO SCH ×2 (10:35→22:19)
[2021-12-27] MEDS ORDERED: ACETAMINOPHEN 325 MG TABLET (FP) PO PRN (11:16)
[2021-12-27] MEDS: TIMOLOL MALEATE 0.5% GFS OPHTHALMIC SOLN 5 ML BOTTLE OD SCH (11:49)
[2021-12-27] MEDS: metroNIDAZOLE 250 MG TABLET PO SCH ×2 (14:30→22:19)
[2021-12-27] MEDS: ATORVASTATIN CA 10 MG TABLET (FP) PO SCH (22:19)
[2021-12-27] MEDS: LATANOPROST 0.005% OPHTH SOLN 2.5ML BOTTLE OD SCH (22:22)
[2021-12-28] MEDS: metroNIDAZOLE 250 MG TABLET PO SCH ×3 (06:48→22:49)
[2021-12-28] MEDS: LIPASE/PROTEASE/AMYLASE 6,000 UNIT CAPSULE PO SCH ×3 (06:49→17:34)
[2021-12-28] MEDS ORDERED: LACTATED RINGERS SOLUTION 1,000 ML IV SCH (07:45)
[2021-12-28 08:08] LABS: HEMATOCRIT 35.2 % (32.4-45.2); MCH 27.4 pg (25.7-33.7); MCHC 31.3 g/dl (32.0-36.0); MEAN CELL VOLUME 87.5 fl (80-96); MEAN PLT VOLUME 9.4 fl (7.5-11.1); PLATELET COUNT 209 10^3/uL (134-434); RBC 4.03 M/mm3 (3.60-5.2); RDW 15.3 % (11.6-15.6); WHITE BLOOD COUNT 5.9 K/mm3 (4.0-10.0)
[2021-12-28] MEDS ORDERED: LOPERAMIDE HCL 2 MG CAPSULE PO PRN (08:26)
[2021-12-28 08:35] LABS: CALCIUM 8.9 mg/dL (8.5-10.1)
[2021-12-28 08:36] LABS: BLOOD UREA NITROGEN 18.9 mg/dL (7-18)
[2021-12-28 08:39] LABS: CREATININE 0.9 mg/dL (0.55-1.3)
[2021-12-28 09:09] LABS: ANISOCYTOSIS 0; HELMET CELLS 0; HOWELL-JOLLY BODIES 0; MACROCYTOSIS 0; OVALOCYTE 0; ROULEAU 0; SICKELED CELLS 0; TARGET CELLS 0; TEAR DROP CELLS 0; TOXIC GRANULATION 0
[2021-12-28] MEDS ORDERED: DEXTROSE 5%-0.45% SALINE 1,000 ML IV SCH (09:45)
[2021-12-28] MEDS: CEFTRIAXONE 1 GM in DEXTROSE 5%-WATER - 50 ML IVPB SCH (11:01)
[2021-12-28] MEDS: PANTOPRAZOLE SODIUM 40 MG VIAL IVPUSH SCH (11:01)
[2021-12-28] MEDS: APIXABAN 5 MG TABLET PO SCH ×2 (11:02→22:41)
[2021-12-28] MEDS: amLODIPine BESYLATE 5 MG TABLET (FP) PO SCH (11:02)
[2021-12-28] MEDS: GABAPENTIN 100 MG CAPSULE PO SCH (11:02)
[2021-12-28] MEDS: FUROSEMIDE 20 MG TABLET (FP) PO SCH (11:02)
[2021-12-28] MEDS: SACUBITRIL/VALSARTAN 97 MG-103 MG TABLET PO SCH ×2 (11:03→22:45)
[2021-12-28] MEDS: TIMOLOL MALEATE 0.5% GFS OPHTHALMIC SOLN 5 ML BOTTLE OD SCH (11:04)
[2021-12-28] MEDS: LOPERAMIDE HCL 2 MG CAPSULE PO PRN (11:04)
[2021-12-28] MEDS: LACTATED RINGERS SOLUTION 1,000 ML IV SCH (13:25)
[2021-12-28] MEDS: SODIUM CHLORIDE 1,000 ML IV SCH (14:19)
[2021-12-28] MEDS ORDERED: APIXABAN 5 MG TABLET PO SCH (22:00)
[2021-12-28] MEDS ORDERED: SACUBITRIL/VALSARTAN 97 MG-103 MG TABLET PO SCH (22:00)
[2021-12-28] MEDS: ACETAMINOPHEN 325 MG TABLET (FP) PO PRN (22:38)
[2021-12-28] MEDS: LATANOPROST 0.005% OPHTH SOLN 2.5ML BOTTLE OD SCH (22:40)
[2021-12-28] MEDS: ATORVASTATIN CA 10 MG TABLET (FP) PO SCH (22:41)
[2021-12-29] MEDS: metroNIDAZOLE 250 MG TABLET PO SCH ×3 (06:13→22:28)
[2021-12-29] MEDS: LIPASE/PROTEASE/AMYLASE 6,000 UNIT CAPSULE PO SCH ×3 (07:00→16:41)
[2021-12-29 08:24] LABS: BLOOD UREA NITROGEN 14.5 mg/dL (7-18); CALCIUM 8.4 mg/dL (8.5-10.1)
[2021-12-29 08:25] LABS: BASO % 0.8 % (0-2.0); EOS % 5.4 % (0-4.5); HEMATOCRIT 33.5 % (32.4-45.2); HEMOGLOBIN 10.5 GM/dL (10.7-15.3); LYMPH % 40.5 % (8-40); MCH 27.4 pg (25.7-33.7); MCHC 31.4 g/dl (32.0-36.0); MEAN CELL VOLUME 87.3 fl (80-96); MEAN PLT VOLUME 9.4 fl (7.5-11.1); MONO % 11.3 % (3.8-10.2); PLATELET COUNT 197 10^3/uL (134-434); RBC 3.84 M/mm3 (3.60-5.2); RDW 15.5 % (11.6-15.6); WHITE BLOOD COUNT 6.6 K/mm3 (4.0-10.0)
[2021-12-29 08:28] LABS: CREATININE 0.9 mg/dL (0.55-1.3)
[2021-12-29] MEDS ORDERED: FUROSEMIDE 20 MG TABLET (FP) PO SCH (10:00)
[2021-12-29] MEDS ORDERED: TIMOLOL MALEATE 0.5% GFS OPHTHALMIC SOLN 5 ML BOTTLE OD SCH (10:00)
[2021-12-29] MEDS ORDERED: CEFTRIAXONE 1 GM in DEXTROSE 5%-WATER - 50 ML IVPB SCH (10:00)
[2021-12-29] MEDS ORDERED: PANTOPRAZOLE SODIUM 40 MG VIAL IVPUSH SCH (10:00)
[2021-12-29] MEDS ORDERED: GABAPENTIN 100 MG CAPSULE PO SCH (10:00)
[2021-12-29] MEDS ORDERED: amLODIPine BESYLATE 5 MG TABLET (FP) PO SCH (10:00)
[2021-12-29] MEDS: PANTOPRAZOLE SODIUM 40 MG VIAL IVPUSH SCH (11:31)
[2021-12-29] MEDS: CEFTRIAXONE 1 GM in DEXTROSE 5%-WATER - 50 ML IVPB SCH (11:31)
[2021-12-29] MEDS: FUROSEMIDE 20 MG TABLET (FP) PO SCH (11:31)
[2021-12-29] MEDS: SACUBITRIL/VALSARTAN 97 MG-103 MG TABLET PO SCH ×2 (11:32→22:33)
[2021-12-29] MEDS: GABAPENTIN 100 MG CAPSULE PO SCH (11:32)
[2021-12-29] MEDS: amLODIPine BESYLATE 5 MG TABLET (FP) PO SCH (11:32)
[2021-12-29] MEDS: APIXABAN 5 MG TABLET PO SCH ×2 (11:32→22:34)
[2021-12-29] MEDS: TIMOLOL MALEATE 0.5% GFS OPHTHALMIC SOLN 5 ML BOTTLE OD SCH (11:33)
[2021-12-29] MEDS: SODIUM CHLORIDE 1,000 ML IV SCH (11:35)
[2021-12-29] MEDS: LACTATED RINGERS SOLUTION 1,000 ML IV SCH (11:38)
[2021-12-29] MEDS: LOPERAMIDE HCL 2 MG CAPSULE PO PRN (16:11)
[2021-12-29] MEDS ORDERED: LOPERAMIDE HCL 2 MG CAPSULE PO PRN (18:24)
[2021-12-29] MEDS ORDERED: BANATROL PLUS POWDER PACKET PO ONE (20:15)
[2021-12-29 22:15] VITALS: BMI 40.2
[2021-12-29] MEDS: ACETAMINOPHEN 325 MG TABLET (FP) PO PRN (22:26)
[2021-12-29] MEDS: LATANOPROST 0.005% OPHTH SOLN 2.5ML BOTTLE OD SCH (22:30)
[2021-12-29] MEDS: ATORVASTATIN CA 10 MG TABLET (FP) PO SCH (22:30)
[2021-12-30] MEDS: metroNIDAZOLE 250 MG TABLET PO SCH ×3 (05:48→22:01)
[2021-12-30] MEDS ORDERED: BANATROL PLUS POWDER PACKET PO ONE (06:00)
[2021-12-30] MEDS: ACETAMINOPHEN 325 MG TABLET (FP) PO PRN ×3 (06:01→22:02)
[2021-12-30] MEDS: LIPASE/PROTEASE/AMYLASE 6,000 UNIT CAPSULE PO SCH ×3 (07:53→18:02)
[2021-12-30 08:05] LABS: HEMATOCRIT 32.4 % (32.4-45.2); HEMOGLOBIN 10.4 GM/dL (10.7-15.3); MCH 27.8 pg (25.7-33.7); MCHC 32.2 g/dl (32.0-36.0); MEAN CELL VOLUME 86.1 fl (80-96); MEAN PLT VOLUME 9.1 fl (7.5-11.1); PLATELET COUNT 200 10^3/uL (134-434); RBC 3.76 M/mm3 (3.60-5.2); RDW 15.5 % (11.6-15.6); WHITE BLOOD COUNT 6.1 K/mm3 (4.0-10.0)
[2021-12-30] MEDS: AMINO ACIDS/PROTEIN HYDROLYS 30 ML LIQUID.PKT PO SCH (08:30)
[2021-12-30 08:42] LABS: BLOOD UREA NITROGEN 9.6 mg/dL (7-18); CALCIUM 8.4 mg/dL (8.5-10.1)
[2021-12-30 08:47] LABS: CREATININE 0.7 mg/dL (0.55-1.3)
[2021-12-30 09:26] LABS: ANISOCYTOSIS 1+; MACROCYTOSIS 0
[2021-12-30] MEDS: ZINC SULFATE 220 MG CAPSULE (FP) PO SCH (11:08)
[2021-12-30] MEDS: MULTIVITAMINS THER W-MINERALS COMBO TABLET (FP) PO SCH (11:08)
[2021-12-30] MEDS: ASCORBIC ACID 250 MG TABLET (FP) PO SCH (11:08)
[2021-12-30] MEDS: amLODIPine BESYLATE 5 MG TABLET (FP) PO SCH (11:08)
[2021-12-30] MEDS: APIXABAN 5 MG TABLET PO SCH ×2 (11:08→22:01)
[2021-12-30] MEDS: GABAPENTIN 100 MG CAPSULE PO SCH (11:08)
[2021-12-30] MEDS: CEFTRIAXONE 1 GM in DEXTROSE 5%-WATER - 50 ML IVPB SCH (11:08)
[2021-12-30] MEDS: PANTOPRAZOLE SODIUM 40 MG VIAL IVPUSH SCH (11:08)
[2021-12-30] MEDS: SACUBITRIL/VALSARTAN 97 MG-103 MG TABLET PO SCH ×2 (11:09→22:00)
[2021-12-30] MEDS: LACTATED RINGERS SOLUTION 1,000 ML IV SCH (11:10)
[2021-12-30] MEDS: TIMOLOL MALEATE 0.5% GFS OPHTHALMIC SOLN 5 ML BOTTLE OD SCH (11:10)
[2021-12-30] MEDS: SODIUM CHLORIDE 1,000 ML IV SCH (11:10)
[2021-12-30] MEDS: FUROSEMIDE 20 MG TABLET (FP) PO SCH (11:34)
[2021-12-30] MEDS: DEXTROSE 5%-LACTATED RINGERS 1,000 ML IV SCH (18:02)
[2021-12-30 20:54] LABS: BASO % 0.9 % (0-2.0); EOS % 3.4 % (0-4.5); HEMATOCRIT 37.1 % (32.4-45.2); HEMOGLOBIN 11.9 GM/dL (10.7-15.3); MCH 27.9 pg (25.7-33.7); MCHC 32.1 g/dl (32.0-36.0); MEAN PLT VOLUME 8.8 fl (7.5-11.1); MONO % 9.5 % (3.8-10.2); NEUT % 52.2 % (42.8-82.8); PLATELET COUNT 209 10^3/uL (134-434); RBC 4.26 M/mm3 (3.60-5.2); RDW 15.7 % (11.6-15.6); WHITE BLOOD COUNT 7.4 K/mm3 (4.0-10.0)
[2021-12-30 21:09] LABS: ALBUMIN 2.5 g/dl (3.4-5.0); BLOOD UREA NITROGEN 10.9 mg/dL (7-18); CALCIUM 9.4 mg/dL (8.5-10.1)
[2021-12-30 21:12] LABS: CREATININE 0.8 mg/dL (0.55-1.3)
[2021-12-30 21:13] LABS: BILIRUBIN,TOTAL 0.2 mg/dL (0.2-1)
[2021-12-30 21:14] LABS: TOT PROT 5.6 g/dl (6.4-8.2)
[2021-12-30] MEDS: ATORVASTATIN CA 10 MG TABLET (FP) PO SCH (22:01)
[2021-12-30] MEDS: LATANOPROST 0.005% OPHTH SOLN 2.5ML BOTTLE OD SCH (22:02)
[2021-12-31] MEDS: metroNIDAZOLE 250 MG TABLET PO SCH ×3 (06:48→21:42)
[2021-12-31] MEDS: LIPASE/PROTEASE/AMYLASE 6,000 UNIT CAPSULE PO SCH ×3 (06:50→18:03)
[2021-12-31 08:02] LABS: EOS % 4.9 % (0-4.5); HEMATOCRIT 37.5 % (32.4-45.2); HEMOGLOBIN 11.7 GM/dL (10.7-15.3); LYMPH % 39.7 % (8-40); MCHC 31.3 g/dl (32.0-36.0); MEAN CELL VOLUME 86.5 fl (80-96); MEAN PLT VOLUME 9.4 fl (7.5-11.1); MONO % 10.4 % (3.8-10.2); PLATELET COUNT 221 10^3/uL (134-434); RBC 4.34 M/mm3 (3.60-5.2); RDW 15.2 % (11.6-15.6); WHITE BLOOD COUNT 6.1 K/mm3 (4.0-10.0)
[2021-12-31 08:54] LABS: CALCIUM 9.1 mg/dL (8.5-10.1)
[2021-12-31 08:55] LABS: ALBUMIN 2.4 g/dl (3.4-5.0); BLOOD UREA NITROGEN 8.4 mg/dL (7-18)
[2021-12-31 08:58] LABS: CREATININE 0.8 mg/dL (0.55-1.3)
[2021-12-31 08:59] LABS: BILIRUBIN,TOTAL 0.2 mg/dL (0.2-1)
[2021-12-31 09:00] LABS: TOT PROT 5.3 g/dl (6.4-8.2)
[2021-12-31] MEDS: SACUBITRIL/VALSARTAN 97 MG-103 MG TABLET PO SCH (10:11)
[2021-12-31] MEDS: amLODIPine BESYLATE 5 MG TABLET (FP) PO SCH (10:11)
[2021-12-31] MEDS: ASCORBIC ACID 250 MG TABLET (FP) PO SCH (10:11)
[2021-12-31] MEDS: MULTIVITAMINS THER W-MINERALS COMBO TABLET (FP) PO SCH (10:11)
[2021-12-31] MEDS: GABAPENTIN 100 MG CAPSULE PO SCH (10:11)
[2021-12-31] MEDS: APIXABAN 5 MG TABLET PO SCH ×2 (10:11→21:40)
[2021-12-31] MEDS: PANTOPRAZOLE SODIUM 40 MG VIAL IVPUSH SCH (10:11)
[2021-12-31] MEDS: ZINC SULFATE 220 MG CAPSULE (FP) PO SCH (10:12)
[2021-12-31] MEDS: SODIUM CHLORIDE 1,000 ML IV SCH (10:12)
[2021-12-31] MEDS: FUROSEMIDE 20 MG TABLET (FP) PO SCH (10:12)
[2021-12-31] MEDS: TIMOLOL MALEATE 0.5% GFS OPHTHALMIC SOLN 5 ML BOTTLE OD SCH (10:12)
[2021-12-31] MEDS: CEFTRIAXONE 1 GM in DEXTROSE 5%-WATER - 50 ML IVPB SCH (10:18)
[2021-12-31] MEDS: AMINO ACIDS/PROTEIN HYDROLYS 30 ML LIQUID.PKT PO SCH (10:19)
[2021-12-31] MEDS ORDERED: ONDANSETRON 4 MG/2 ML VIAL IVPUSH PRN (10:48)
[2021-12-31] MEDS: DEXTROSE 5%-LACTATED RINGERS 1,000 ML IV SCH ×2 (16:00→21:52)
[2021-12-31] MEDS: ACETAMINOPHEN 325 MG TABLET (FP) PO PRN (17:07)
[2021-12-31] MEDS: ATORVASTATIN CA 10 MG TABLET (FP) PO SCH (21:40)
[2021-12-31] MEDS: LATANOPROST 0.005% OPHTH SOLN 2.5ML BOTTLE OD SCH (21:44)
[2022-01-01 03:51] VITALS: RESP 20
[2022-01-01] MEDS: metroNIDAZOLE 250 MG TABLET PO SCH ×3 (06:02→23:15)
[2022-01-01] MEDS: DEXTROSE 5%-LACTATED RINGERS 1,000 ML IV SCH (06:26)
[2022-01-01] MEDS: LIPASE/PROTEASE/AMYLASE 6,000 UNIT CAPSULE PO SCH ×3 (06:51→17:56)
[2022-01-01 07:54] LABS: BASO % 0.8 % (0-2.0); EOS % 4.2 % (0-4.5); HEMATOCRIT 33.9 % (32.4-45.2); LYMPH % 34.2 % (8-40); MCHC 32.3 g/dl (32.0-36.0); MEAN CELL VOLUME 86.6 fl (80-96); MEAN PLT VOLUME 8.9 fl (7.5-11.1); MONO % 10.2 % (3.8-10.2); NEUT % 50.6 % (42.8-82.8); PLATELET COUNT 199 10^3/uL (134-434); RBC 3.91 M/mm3 (3.60-5.2); RDW 15.4 % (11.6-15.6); WHITE BLOOD COUNT 6.6 K/mm3 (4.0-10.0)
[2022-01-01] MEDS: ACETAMINOPHEN 325 MG TABLET (FP) PO PRN ×2 (08:30→17:56)
[2022-01-01 08:58] LABS: CALCIUM 8.7 mg/dL (8.5-10.1)
[2022-01-01 08:59] LABS: BLOOD UREA NITROGEN 8.4 mg/dL (7-18)
[2022-01-01 09:02] LABS: CREATININE 0.8 mg/dL (0.55-1.3)
[2022-01-01] MEDS: MULTIVITAMINS THER W-MINERALS COMBO TABLET (FP) PO SCH (09:46)
[2022-01-01] MEDS: APIXABAN 5 MG TABLET PO SCH (09:46)
[2022-01-01] MEDS: AMINO ACIDS/PROTEIN HYDROLYS 30 ML LIQUID.PKT PO SCH (09:46)
[2022-01-01] MEDS: ZINC SULFATE 220 MG CAPSULE (FP) PO SCH (09:46)
[2022-01-01] MEDS: ASCORBIC ACID 250 MG TABLET (FP) PO SCH (09:46)
[2022-01-01] MEDS: TIMOLOL MALEATE 0.5% GFS OPHTHALMIC SOLN 5 ML BOTTLE OD SCH (09:47)
[2022-01-01] MEDS ORDERED: SACUBITRIL/VALSARTAN 97 MG-103 MG TABLET PO SCH (10:00)
[2022-01-01] MEDS ORDERED: PANTOPRAZOLE 40 MG TABLET PO SCH (10:00)
[2022-01-01] MEDS: NYSTATIN POWDER 100,000 UNITS/GM - 15 GM TOPICAL POWDER TP SCH (11:26)
[2022-01-01] MEDS: GABAPENTIN 100 MG CAPSULE PO SCH ×2 (13:17→23:15)
[2022-01-01] MEDS ORDERED: ACETAMINOPHEN 325 MG TABLET (FP) PO PRN (23:12)
[2022-01-01] MEDS: ATORVASTATIN CA 10 MG TABLET (FP) PO SCH (23:15)
[2022-01-02] MEDS: APIXABAN 5 MG TABLET PO SCH ×3 (00:56→11:54)
[2022-01-02] MEDS: NYSTATIN POWDER 100,000 UNITS/GM - 15 GM TOPICAL POWDER TP SCH (00:57)
[2022-01-02] MEDS: LATANOPROST 0.005% OPHTH SOLN 2.5ML BOTTLE OD SCH (00:57)
[2022-01-02] MEDS: GABAPENTIN 100 MG CAPSULE PO SCH ×2 (05:58→14:03)
[2022-01-02] MEDS: metroNIDAZOLE 250 MG TABLET PO SCH ×2 (05:58→14:03)
[2022-01-02] MEDS ORDERED: AMINO ACIDS/PROTEIN HYDROLYS 30 ML LIQUID.PKT PO SCH (08:00)
[2022-01-02] MEDS: LIPASE/PROTEASE/AMYLASE 6,000 UNIT CAPSULE PO SCH ×3 (09:48→17:12)
[2022-01-02 09:52] LABS: BASO % 1.1 % (0-2.0); EOS % 3.5 % (0-4.5); HEMATOCRIT 33.3 % (32.4-45.2); HEMOGLOBIN 10.9 GM/dL (10.7-15.3); LYMPH % 33.6 % (8-40); MCH 28.3 pg (25.7-33.7); MCHC 32.7 g/dl (32.0-36.0); MEAN CELL VOLUME 86.7 fl (80-96); MONO % 9.1 % (3.8-10.2); NEUT % 52.7 % (42.8-82.8); PLATELET COUNT 186 10^3/uL (134-434); RBC 3.84 M/mm3 (3.60-5.2); RDW 15.4 % (11.6-15.6); WHITE BLOOD COUNT 6.3 K/mm3 (4.0-10.0)
[2022-01-02] MEDS ORDERED: ASCORBIC ACID 250 MG TABLET (FP) PO SCH (10:00)
[2022-01-02] MEDS ORDERED: MULTIVITAMINS THER W-MINERALS COMBO TABLET (FP) PO SCH (10:00)
[2022-01-02] MEDS ORDERED: ZINC SULFATE 220 MG CAPSULE (FP) PO SCH (10:00)
[2022-01-02] MEDS ORDERED: NYSTATIN POWDER 100,000 UNITS/GM - 15 GM TOPICAL POWDER TP SCH (10:00)
[2022-01-02] MEDS ORDERED: PANTOPRAZOLE 40 MG TABLET PO SCH (10:00)
[2022-01-02] MEDS ORDERED: TIMOLOL MALEATE 0.5% GFS OPHTHALMIC SOLN 5 ML BOTTLE OD SCH (10:00)
[2022-01-02 10:31] LABS: CALCIUM 8.4 mg/dL (8.5-10.1)
[2022-01-02 10:32] LABS: BLOOD UREA NITROGEN 12.6 mg/dL (7-18)
[2022-01-02 10:35] LABS: CREATININE 0.8 mg/dL (0.55-1.3)
[2022-01-02 14:45] VITALS: BP 141/56; PULSE 46; TEMP 97.7
[2022-01-02] MEDS ORDERED: LATANOPROST 0.005% OPHTH SOLN 2.5ML BOTTLE OD SCH (22:00)
[2022-01-02] MEDS ORDERED: ATORVASTATIN CA 10 MG TABLET (FP) PO SCH (22:00)
== END 2022-01-02 17:54 | DRG 982 ==
LOC: JER 23:54 → JERBED 12-23 07:18 → J2W 12-23 20:20 → J4W 12-25 02:05 → J6S 01-01 22:12
PROVIDERS: ADMIT Internal Medicine; ATTEND Internal Medicine
PROC: 0JH602Z Insertion of Monitoring Device into Chest Subcutaneous Tissue and Fascia, Open Approach (ICD-10-PCS; principal; 2021-12-28 07:30)
DX: K57.32 Diverticulitis of large intestine without perforation or abscess without bleeding (principal); K80.00 Calculus of gallbladder with acute cholecystitis without obstruction; Z68.41 Body mass index [BMI] 40.0-44.9, adult; N17.9 Acute kidney failure, unspecified; N39.0 Urinary tract infection, site not specified; K57.30 Diverticulosis of large intestine without perforation or abscess without bleeding; E11.9 Type 2 diabetes mellitus without complications; E66.01 Morbid (severe) obesity due to excess calories; R42 Dizziness and giddiness; I44.7 Left bundle-branch block, unspecified; E78.5 Hyperlipidemia, unspecified; K43.2 Incisional hernia without obstruction or gangrene; R00.1 Bradycardia, unspecified; I44.1 Atrioventricular block, second degree; G47.33 Obstructive sleep apnea (adult) (pediatric); R94.31 Abnormal electrocardiogram [ECG] [EKG]; B36.8 Other specified superficial mycoses; R26.81 Unsteadiness on feet; I11.0 Hypertensive heart disease with heart failure; I50.9 Heart failure, unspecified; M79.604 Pain in right leg; E86.0 Dehydration; B96.20 Unspecified Escherichia coli [E. coli] as the cause of diseases classified elsewhere; B95.2 Enterococcus as the cause of diseases classified elsewhere; K29.50 Unspecified chronic gastritis without bleeding; G47.30 Sleep apnea, unspecified; N28.89 Other specified disorders of kidney and ureter; Z86.711 Personal history of pulmonary embolism; Z85.038 Personal history of other malignant neoplasm of large intestine
CPT/HCPCS: 36415; 71045-TC-FY; 74174-TC; 74176-TC; 76705-TC; 80048; 80053; 80307; 81003; 82150; 82728; 82962; 83540; 83550; 83605; 83690; 83735; 83880; 84443; 84484; 85025; 85610; 85730; 86140; 87086; 87186; 87324; 87449; 93005; 93010; 97116-GP; 97162-GP; 99285-25; C9803-CS; U0003; U0005

== ENCOUNTER 2022-04-17 12:19 | Inpatient (IN) | payer OTHER ==
[2022-04-17 13:28] LABS: EOS % 1.7 % (0-4.5); HEMATOCRIT 36.2 % (32.4-45.2); HEMOGLOBIN 11.8 GM/dL (10.7-15.3); LYMPH % 35.9 % (8-40); MCH 28.6 pg (25.7-33.7); MCHC 32.6 g/dl (32.0-36.0); MEAN CELL VOLUME 87.9 fl (80-96); MEAN PLT VOLUME 9.2 fl (7.5-11.1); MONO % 8.6 % (3.8-10.2); NEUT % 52.8 % (42.8-82.8); PLATELET COUNT 176 10^3/uL (134-434); RBC 4.12 M/mm3 (3.60-5.2); RDW 15.1 % (11.6-15.6); WHITE BLOOD COUNT 4.9 K/mm3 (4.0-10.0)
[2022-04-17 13:34] LABS: INR 1.47 (0.83-1.09)
[2022-04-17 13:36] LABS: ACTIVATED PTT 32.1 SECONDS (25.2-36.5)
[2022-04-17 13:56] LABS: ALBUMIN 2.6 g/dl (3.4-5.0); CALCIUM 8.9 mg/dL (8.5-10.1)
[2022-04-17 13:59] LABS: CREATININE 0.9 mg/dL (0.55-1.3)
[2022-04-17 14:01] LABS: BILIRUBIN,TOTAL 0.4 mg/dL (0.2-1); TOT PROT 5.8 g/dl (6.4-8.2)
[2022-04-17 20:55] LABS: BASO % 0.6 % (0-2.0); EOS % 0.6 % (0-4.5); HEMATOCRIT 32.9 % (32.4-45.2); HEMOGLOBIN 10.8 GM/dL (10.7-15.3); LYMPH % 28.9 % (8-40); MCH 29.1 pg (25.7-33.7); MCHC 32.8 g/dl (32.0-36.0); MEAN CELL VOLUME 88.7 fl (80-96); MEAN PLT VOLUME 9.3 fl (7.5-11.1); MONO % 6.7 % (3.8-10.2); NEUT % 63.2 % (42.8-82.8); PLATELET COUNT 176 10^3/uL (134-434); RBC 3.71 M/mm3 (3.60-5.2); RDW 15.2 % (11.6-15.6); WHITE BLOOD COUNT 7.2 K/mm3 (4.0-10.0)
[2022-04-17 22:44] LABS: URINE APPEARANCE CLEAR; URINE BILIRUBIN NEGATIVE (NEGATIVE); URINE COLOR YELLOW; URINE GLUCOSE (UA) NEGATIVE (NEGATIVE)
[2022-04-17 22:45] LABS: URINE KETONE TRACE (NEGATIVE); URINE LEUK ESTERASE 1+ (NEGATIVE); URINE NITRITE NEGATIVE (NEGATIVE); URINE PROTEIN 300 (NEGATIVE); URINE UROBILINOGEN 0.2 mg/dL (0.2-1.0)
[2022-04-17 22:46] LABS: EPI CELLS 3.5 /uL (0-25.1); HYALINE CASTS 1 /uL (0-3.1); URINE BACTERIA 11131.3 /uL (0-1359); URINE RBC 33.4 /uL (0-23.9); URINE WBC 1109.3 /uL (0-25.8)
[2022-04-18] MEDS ORDERED: ZINC OXIDE 20% TOPICAL OINTMENT 30 GM TUBE TP ONE (03:46)
[2022-04-18] MEDS ORDERED: CEFTRIAXONE 1 GM/50 ML BAG ONE (06:27)
[2022-04-18] MEDS: CEFTRIAXONE 1 GM in DEXTROSE 5%-WATER - 50 ML IVPB SCH (06:39)
[2022-04-18 08:08] LABS: BASO % 0.7 % (0-2.0); EOS % 1.1 % (0-4.5); HEMATOCRIT 33.4 % (32.4-45.2); LYMPH % 36.8 % (8-40); MCH 29.1 pg (25.7-33.7); MCHC 32.8 g/dl (32.0-36.0); MEAN CELL VOLUME 88.5 fl (80-96); MEAN PLT VOLUME 10.2 fl (7.5-11.1); MONO % 9.5 % (3.8-10.2); NEUT % 51.9 % (42.8-82.8); PLATELET COUNT 170 10^3/uL (134-434); RBC 3.77 M/mm3 (3.60-5.2); RDW 15.1 % (11.6-15.6); WHITE BLOOD COUNT 7.2 K/mm3 (4.0-10.0)
[2022-04-18 08:36] LABS: CALCIUM 8.9 mg/dL (8.5-10.1)
[2022-04-18 08:37] LABS: BLOOD UREA NITROGEN 36.4 mg/dL (7-18); MAGNESIUM 1.8 mg/dL (1.8-2.4)
[2022-04-18 08:39] LABS: PHOSPHOROUS 4.3 mg/dL (2.5-4.9)
[2022-04-18 08:40] LABS: CREATININE 1.1 mg/dL (0.55-1.3)
[2022-04-18] MEDS ORDERED: PANTOPRAZOLE SODIUM 80 MG in SODIUM CHLORIDE 100 ML IVPB SCH (09:45)
[2022-04-18] MEDS ORDERED: PANTOPRAZOLE 40 MG TABLET PO SCH (10:00)
[2022-04-18] MEDS ORDERED: POLYETHYLENE GLYCOL (HEALTHYLAX) 3350 17 GM PACKET PO SCH (10:00)
[2022-04-18] MEDS ORDERED: PANTOPRAZOLE SODIUM 40 MG VIAL IVPUSH SCH (10:00)
[2022-04-18] MEDS ORDERED: CEFTRIAXONE 1 GM in DEXTROSE 5%-WATER - 50 ML IVPB SCH (10:00)
[2022-04-18] MEDS ORDERED: APIXABAN 5 MG TABLET PO SCH (10:00)
[2022-04-18] MEDS: LIDOCAINE 5% TOPICAL PATCH TP SCH (11:16)
[2022-04-18] MEDS: MULTIVITAMINS (DAILY MVI) TABLET (FP) PO SCH (11:36)
[2022-04-18] MEDS: LIPASE/PROTEASE/AMYLASE 6,000 UNIT CAPSULE PO SCH ×2 (11:37→13:53)
[2022-04-18] MEDS: PANTOPRAZOLE SODIUM 160 MG in SODIUM CHLORIDE 290 ML IVPB SCH (11:39)
[2022-04-18 14:20] LABS: CALCIUM 8.9 mg/dL (8.5-10.1)
[2022-04-18 14:21] LABS: ALBUMIN 2.8 g/dl (3.4-5.0); BLOOD UREA NITROGEN 37.7 mg/dL (7-18)
[2022-04-18 14:24] LABS: CREATININE 1.4 mg/dL (0.55-1.3); PHOSPHOROUS 4.3 mg/dL (2.5-4.9)
[2022-04-18 14:26] LABS: BILIRUBIN,TOTAL 0.2 mg/dL (0.2-1); TOT PROT 5.9 g/dl (6.4-8.2)
[2022-04-18 14:40] LABS: MAGNESIUM 1.9 mg/dL (1.8-2.4)
[2022-04-18 15:04] VITALS: BMI 34.9
[2022-04-18] MEDS: TIMOLOL MALEATE 0.5% GFS OPHTHALMIC SOLN 5 ML BOTTLE OU SCH (18:20)
[2022-04-18] MEDS: LIDOCAINE PATCH REMOVAL MC SCH (21:48)
[2022-04-18] MEDS: LATANOPROST 0.005% OPHTH SOLN 2.5ML BOTTLE OU SCH (21:48)
[2022-04-19 06:28] LABS: HEMATOCRIT 30.2 % (32.4-45.2); HEMOGLOBIN 9.9 GM/dL (10.7-15.3); MCH 29.4 pg (25.7-33.7); MCHC 32.9 g/dl (32.0-36.0); MEAN CELL VOLUME 89.4 fl (80-96); MEAN PLT VOLUME 9.5 fl (7.5-11.1); PLATELET COUNT 174 10^3/uL (134-434); RBC 3.38 M/mm3 (3.60-5.2); RDW 15.1 % (11.6-15.6); WHITE BLOOD COUNT 6.5 K/mm3 (4.0-10.0)
[2022-04-19 06:56] LABS: ALBUMIN 2.7 g/dl (3.4-5.0)
[2022-04-19 06:57] LABS: BLOOD UREA NITROGEN 39.8 mg/dL (7-18); CALCIUM 8.9 mg/dL (8.5-10.1)
[2022-04-19 07:01] LABS: BILIRUBIN,TOTAL 0.2 mg/dL (0.2-1); TOT PROT 5.4 g/dl (6.4-8.2)
[2022-04-19] MEDS: MULTIVITAMINS (DAILY MVI) TABLET (FP) PO SCH (11:35)
[2022-04-19] MEDS: LIDOCAINE 5% TOPICAL PATCH TP SCH (11:35)
[2022-04-19] MEDS: TIMOLOL MALEATE 0.5% GFS OPHTHALMIC SOLN 5 ML BOTTLE OU SCH (11:40)
[2022-04-19] MEDS: CEFTRIAXONE 1 GM in DEXTROSE 5%-WATER - 50 ML IVPB SCH (14:07)
[2022-04-19] MEDS: AMOX TR/POT CLAV 500MG/125MG TABLETS (FP) PO SCH (17:01)
[2022-04-19] MEDS: PANTOPRAZOLE SODIUM 160 MG in SODIUM CHLORIDE 290 ML IVPB SCH (18:30)
[2022-04-19] MEDS: metroNIDAZOLE 250 MG TABLET PO SCH (22:15)
[2022-04-19] MEDS: LIDOCAINE PATCH REMOVAL MC SCH (22:15)
[2022-04-19] MEDS ORDERED: IRON SUCROSE INJECTION 200 MG in SODIUM CHLORIDE 90 ML IVPB ONE (23:30)
[2022-04-19] MEDS: LATANOPROST 0.005% OPHTH SOLN 2.5ML BOTTLE OU SCH (23:40)
[2022-04-20] MEDS: metroNIDAZOLE 250 MG TABLET PO SCH ×3 (06:01→22:16)
[2022-04-20] MEDS: AMOX TR/POT CLAV 500MG/125MG TABLETS (FP) PO SCH (08:27)
[2022-04-20] MEDS: MULTIVITAMINS (DAILY MVI) TABLET (FP) PO SCH (09:07)
[2022-04-20] MEDS: LIDOCAINE 5% TOPICAL PATCH TP SCH (09:07)
[2022-04-20] MEDS: PANTOPRAZOLE 40 MG TABLET PO SCH (09:07)
[2022-04-20] MEDS: TIMOLOL MALEATE 0.5% GFS OPHTHALMIC SOLN 5 ML BOTTLE OU SCH (09:12)
[2022-04-20 13:56] LABS: HEMATOCRIT 28.7 % (32.4-45.2); HEMOGLOBIN 9.4 GM/dL (10.7-15.3); MCHC 32.9 g/dl (32.0-36.0); MEAN CELL VOLUME 88.2 fl (80-96); MEAN PLT VOLUME 9.6 fl (7.5-11.1); PLATELET COUNT 177 10^3/uL (134-434); RBC 3.26 M/mm3 (3.60-5.2); RDW 14.9 % (11.6-15.6); WHITE BLOOD COUNT 5.5 K/mm3 (4.0-10.0)
[2022-04-20 14:35] LABS: CALCIUM 8.9 mg/dL (8.5-10.1)
[2022-04-20 14:36] LABS: BLOOD UREA NITROGEN 28.2 mg/dL (7-18)
[2022-04-20 14:39] LABS: CREATININE 0.8 mg/dL (0.55-1.3)
[2022-04-20] MEDS: LIDOCAINE PATCH REMOVAL MC SCH (22:15)
[2022-04-20] MEDS: LATANOPROST 0.005% OPHTH SOLN 2.5ML BOTTLE OU SCH (22:16)
[2022-04-21] MEDS: metroNIDAZOLE 250 MG TABLET PO SCH ×3 (06:26→22:14)
[2022-04-21] MEDS: MULTIVITAMINS (DAILY MVI) TABLET (FP) PO SCH (09:36)
[2022-04-21] MEDS: LIDOCAINE 5% TOPICAL PATCH TP SCH (09:36)
[2022-04-21] MEDS: PANTOPRAZOLE 40 MG TABLET PO SCH (09:36)
[2022-04-21] MEDS: TIMOLOL MALEATE 0.5% GFS OPHTHALMIC SOLN 5 ML BOTTLE OU SCH (09:36)
[2022-04-21] MEDS: LIPASE/PROTEASE/AMYLASE 6,000 UNIT CAPSULE PO SCH ×2 (12:24→16:54)
[2022-04-21] MEDS: LIDOCAINE PATCH REMOVAL MC SCH (22:14)
[2022-04-21] MEDS: LATANOPROST 0.005% OPHTH SOLN 2.5ML BOTTLE OU SCH (22:14)
[2022-04-22] MEDS: metroNIDAZOLE 250 MG TABLET PO SCH ×2 (05:25→13:41)
[2022-04-22] MEDS: LIPASE/PROTEASE/AMYLASE 6,000 UNIT CAPSULE PO SCH ×3 (08:42→17:58)
[2022-04-22 08:58] LABS: EOS % 2.7 % (0-4.5); HEMOGLOBIN 8.8 GM/dL (10.7-15.3); LYMPH % 44.1 % (8-40); MCH 28.9 pg (25.7-33.7); MCHC 32.4 g/dl (32.0-36.0); MEAN CELL VOLUME 89.1 fl (80-96); MEAN PLT VOLUME 9.5 fl (7.5-11.1); MONO % 8.1 % (3.8-10.2); NEUT % 44.1 % (42.8-82.8); PLATELET COUNT 185 10^3/uL (134-434); RBC 3.03 M/mm3 (3.60-5.2); RDW 15.2 % (11.6-15.6); WHITE BLOOD COUNT 6.9 K/mm3 (4.0-10.0)
[2022-04-22] MEDS: PANTOPRAZOLE 40 MG TABLET PO SCH (09:00)
[2022-04-22] MEDS: LIDOCAINE 5% TOPICAL PATCH TP SCH (09:01)
[2022-04-22] MEDS: MULTIVITAMINS (DAILY MVI) TABLET (FP) PO SCH (09:01)
[2022-04-22 09:32] LABS: ALBUMIN 2.6 g/dl (3.4-5.0); BLOOD UREA NITROGEN 27.5 mg/dL (7-18); CALCIUM 8.5 mg/dL (8.5-10.1)
[2022-04-22 09:33] LABS: BILIRUBIN,TOTAL 0.5 mg/dL (0.2-1); TOT PROT 5.3 g/dl (6.4-8.2)
[2022-04-22 09:35] LABS: CREATININE 0.9 mg/dL (0.55-1.3)
[2022-04-22] MEDS ORDERED: POTASSIUM CHLORIDE ORAL LIQUID 20 MEQ/15 ML PO ONE (12:01)
[2022-04-22] MEDS: TIMOLOL MALEATE 0.5% GFS OPHTHALMIC SOLN 5 ML BOTTLE OU SCH (13:03)
[2022-04-22] MEDS: MELATONIN 5 MG TABLETS PO PRN (21:14)
[2022-04-22] MEDS: LIDOCAINE PATCH REMOVAL MC SCH (21:18)
[2022-04-22] MEDS: LATANOPROST 0.005% OPHTH SOLN 2.5ML BOTTLE OU SCH (21:19)
[2022-04-22 21:57] VITALS: RESP 18
[2022-04-23] MEDS: LIPASE/PROTEASE/AMYLASE 6,000 UNIT CAPSULE PO SCH ×3 (09:10→18:08)
[2022-04-23] MEDS: PANTOPRAZOLE 40 MG TABLET PO SCH (09:10)
[2022-04-23] MEDS: TIMOLOL MALEATE 0.5% GFS OPHTHALMIC SOLN 5 ML BOTTLE OU SCH (09:11)
[2022-04-23] MEDS: MULTIVITAMINS (DAILY MVI) TABLET (FP) PO SCH (09:11)
[2022-04-23] MEDS: LIDOCAINE 5% TOPICAL PATCH TP SCH (09:11)
[2022-04-23 10:17] LABS: BASO % 0.8 % (0-2.0); EOS % 3.2 % (0-4.5); HEMATOCRIT 26.8 % (32.4-45.2); HEMOGLOBIN 8.7 GM/dL (10.7-15.3); LYMPH % 42.8 % (8-40); MCHC 32.4 g/dl (32.0-36.0); MEAN CELL VOLUME 89.7 fl (80-96); MEAN PLT VOLUME 9.5 fl (7.5-11.1); MONO % 6.8 % (3.8-10.2); NEUT % 46.4 % (42.8-82.8); PLATELET COUNT 187 10^3/uL (134-434); RBC 2.99 M/mm3 (3.60-5.2); RDW 15.4 % (11.6-15.6); WHITE BLOOD COUNT 6.3 K/mm3 (4.0-10.0)
[2022-04-23 10:52] LABS: ALBUMIN 2.6 g/dl (3.4-5.0); BLOOD UREA NITROGEN 24.7 mg/dL (7-18); CALCIUM 8.8 mg/dL (8.5-10.1)
[2022-04-23 10:57] LABS: CREATININE 0.9 mg/dL (0.55-1.3)
[2022-04-23 10:58] LABS: BILIRUBIN,TOTAL 0.2 mg/dL (0.2-1); TOT PROT 5.3 g/dl (6.4-8.2)
[2022-04-23] MEDS: NITROFURANTOIN MACROCRYSTAL 50 MG CAPSULE (FP) PO SCH (18:08)
[2022-04-23] MEDS: ACETAMINOPHEN 325 MG TABLET (FP) PO PRN (20:16)
[2022-04-23] MEDS: LATANOPROST 0.005% OPHTH SOLN 2.5ML BOTTLE OU SCH (21:11)
[2022-04-23] MEDS: LIDOCAINE PATCH REMOVAL MC SCH (21:14)
[2022-04-24] MEDS: NITROFURANTOIN MACROCRYSTAL 50 MG CAPSULE (FP) PO SCH ×4 (01:18→17:42)
[2022-04-24 08:16] LABS: EOS % 2.9 % (0-4.5); HEMOGLOBIN 9.5 GM/dL (10.7-15.3); LYMPH % 44.8 % (8-40); MCH 29.3 pg (25.7-33.7); MCHC 32.7 g/dl (32.0-36.0); MEAN CELL VOLUME 89.6 fl (80-96); MEAN PLT VOLUME 9.5 fl (7.5-11.1); MONO % 6.2 % (3.8-10.2); NEUT % 45.1 % (42.8-82.8); PLATELET COUNT 184 10^3/uL (134-434); RBC 3.24 M/mm3 (3.60-5.2); RDW 15.2 % (11.6-15.6); WHITE BLOOD COUNT 7.4 K/mm3 (4.0-10.0)
[2022-04-24 08:44] LABS: CALCIUM 9.1 mg/dL (8.5-10.1)
[2022-04-24 08:46] LABS: ALBUMIN 2.7 g/dl (3.4-5.0)
[2022-04-24 08:50] LABS: BILIRUBIN,TOTAL 0.2 mg/dL (0.2-1); TOT PROT 5.5 g/dl (6.4-8.2)
[2022-04-24 08:52] LABS: BLOOD UREA NITROGEN 23.4 mg/dL (7-18); CREATININE 0.8 mg/dL (0.55-1.3)
[2022-04-24] MEDS: LIDOCAINE 5% TOPICAL PATCH TP SCH (09:24)
[2022-04-24] MEDS: PANTOPRAZOLE 40 MG TABLET PO SCH (09:24)
[2022-04-24] MEDS: MULTIVITAMINS (DAILY MVI) TABLET (FP) PO SCH (09:24)
[2022-04-24] MEDS: LIPASE/PROTEASE/AMYLASE 6,000 UNIT CAPSULE PO SCH ×3 (09:24→17:42)
[2022-04-24] MEDS: TIMOLOL MALEATE 0.5% GFS OPHTHALMIC SOLN 5 ML BOTTLE OU SCH (09:25)
[2022-04-24] MEDS ORDERED: IRON SUCROSE INJECTION 200 MG in SODIUM CHLORIDE 90 ML IVPB ONE (11:00)
[2022-04-24] MEDS: MELATONIN 5 MG TABLETS PO PRN (21:34)
[2022-04-24] MEDS: ACETAMINOPHEN 325 MG TABLET (FP) PO PRN (21:34)
[2022-04-24] MEDS: LATANOPROST 0.005% OPHTH SOLN 2.5ML BOTTLE OU SCH (21:36)
[2022-04-24] MEDS: LIDOCAINE PATCH REMOVAL MC SCH (21:51)
[2022-04-25] MEDS: NITROFURANTOIN MACROCRYSTAL 50 MG CAPSULE (FP) PO SCH ×3 (01:13→12:16)
[2022-04-25] MEDS: LIDOCAINE 5% TOPICAL PATCH TP SCH (10:22)
[2022-04-25] MEDS: MULTIVITAMINS (DAILY MVI) TABLET (FP) PO SCH (10:22)
[2022-04-25] MEDS: LIPASE/PROTEASE/AMYLASE 6,000 UNIT CAPSULE PO SCH ×2 (10:22→12:17)
[2022-04-25] MEDS: PANTOPRAZOLE 40 MG TABLET PO SCH (10:22)
[2022-04-25] MEDS: TIMOLOL MALEATE 0.5% GFS OPHTHALMIC SOLN 5 ML BOTTLE OU SCH (10:24)
[2022-04-25 14:06] VITALS: BP 176/87; PULSE 96; TEMP 98.5
[2022-04-25] MEDS ORDERED: amLODIPine BESYLATE 5 MG TABLET (FP) PO ONE (14:15)
== END 2022-04-25 14:05 | DRG 378 ==
LOC: JER 12:19 → JERBED 20:38 → J7W 04-18 08:45 → J8W 04-19 11:23
PROVIDERS: ADMIT Internal Medicine; ATTEND Family Medicine
DX: K92.2 Gastrointestinal hemorrhage, unspecified (principal); N17.9 Acute kidney failure, unspecified; N39.0 Urinary tract infection, site not specified; E78.5 Hyperlipidemia, unspecified; E11.9 Type 2 diabetes mellitus without complications; E66.9 Obesity, unspecified; Z68.34 Body mass index [BMI] 34.0-34.9, adult; R26.2 Difficulty in walking, not elsewhere classified; M54.50 Low back pain, unspecified; N20.0 Calculus of kidney; B96.20 Unspecified Escherichia coli [E. coli] as the cause of diseases classified elsewhere; I44.7 Left bundle-branch block, unspecified; I44.1 Atrioventricular block, second degree; R00.1 Bradycardia, unspecified; R19.7 Diarrhea, unspecified; E87.6 Hypokalemia; D64.9 Anemia, unspecified; E86.0 Dehydration; K57.90 Diverticulosis of intestine, part unspecified, without perforation or abscess without bleeding; R94.31 Abnormal electrocardiogram [ECG] [EKG]; G47.00 Insomnia, unspecified; I11.0 Hypertensive heart disease with heart failure; I50.9 Heart failure, unspecified; Z95.828 Presence of other vascular implants and grafts; Z86.711 Personal history of pulmonary embolism; Z85.038 Personal history of other malignant neoplasm of large intestine
CPT/HCPCS: 36415; 71045-TC-FY; 73521-TC-FY; 74019-TC-FY; 74177-TC; 80048; 80053; 81003; 82272; 82607; 82728; 82746; 82962; 83540; 83550; 83605; 83690; 83735; 83993; 84100; 85025; 85027; 85610; 85730; 86850; 86900; 86901; 87045; 87046; 87086; 87186; 87209; 87324; 87449; 93005; 93010; 97161-GP; 99291; C9803-CS; J1756; Q9967; U0003; U0005